=== PATIENT | female | born 1945 | race Caucasian/White ===

== ENCOUNTER 2017-07-25 20:29 | Emergency (ER) | payer OTHER ==
[~2017-07-25] VITALS: Ht 157.5 cm; Wt 98.7 kg
[2017-07-25 20:35] VITALS: BP 133/77; PULSE 95; RESP 20; TEMP 98.1; O2SAT 93
--- NOTE | 2017-07-25 21:08 | PD ---
HPI Chief Complaint: Skin Problem Time Seen by Provider: 20:47 Travel History International Travel<30 days: No Contact w/Intl Traveler<30days: No Traveled to known affect area: No History of Present Illness HPI The patient is a 71-year-old female that states that since her discharge from [facility] in [facility] for congestive heart failure she has had a papular, squamous, erythematous skin rash on her right hand, both feet and left thigh. It is both pruritic and painful. Sometimes it "pops open" and drains fluid. She states she has been particularly short of breath for the last 3 days. She has never had a similar rash before. She does have multiple allergies. She denies any fever. PFSH Past Medical History Hx Anticoagulant Therapy: Yes Cardiovascular Problems: Yes ([place]) Cerebrovascular Accident: Yes ?: Not Social History Tobacco Use: Yes Allergies-Medications (Allergen,Severity, Reaction): Coded Allergies: acetaminophen (Verified Allergy, Severe, Itching, 07/25/17) iodine (Verified Allergy, Severe, Hives, 07/25/17) oxycodone (Verified Allergy, Severe, Itching, 07/25/17) tramadol (Verified Allergy, Severe, Seizures, 07/25/17) Reported Meds & Prescriptions Reported Meds & Active Scripts Active Bactrim DS (Sulfamethoxazole-Trimethoprim) 800-160 Mg Tab 1 Tab PO BID Prednisone 20 Mg Tab 20 Mg PO BID Review of Systems Except as stated in HPI: all other systems reviewed are Neg Physical Exam Narrative GENERAL: The patient is alert, oriented 3 in slight respiratory distress. Her vital signs show pulse rate of 95 and oximetry 93% but are otherwise normal. SKIN: Focused skin assessment warm/dry. There is a papular, erythematous, squamous rash on the hand and right foot and left foot. There are areas where the patient is obviously been scratching this rash. This area is particularly prominent on the left thigh. The most prominent rashes on the right foot and this appears to be well demarcated. HEAD: Atraumatic. Normocephalic. EYES: Pupils equal and round. No scleral icterus. No injection or drainage. ENT: No nasal bleeding or discharge. Mucous membranes pink and moist. NECK: Trachea midline. No JVD. CARDIOVASCULAR: Regular rate and rhythm. No murmur appreciated. RESPIRATORY: No accessory muscle use. There are scattered rails on the bases bilaterally. Breath sounds equal bilaterally. GASTROINTESTINAL: Abdomen soft, non-tender, nondistended. Hepatic and splenic margins not palpable. MUSCULOSKELETAL: No obvious deformities. No clubbing. No cyanosis. There is 1 + bilateral edema of the lower legs. NEUROLOGICAL: Awake and alert. No obvious cranial nerve deficits. Motor grossly within normal limits. Normal speech. PSYCHIATRIC: Appropriate mood and affect; insight and judgment normal. Data Data Last Documented VS Vital Signs Date Time Temp Pulse Resp B/P (MAP) Pulse Ox O2 Delivery O2 Flow Rate FiO2 07/25/17 22:46 91 18 125/64 (84) 93 Nasal Cannula 2.00 07/25/17 20:35 98.1 Orders Orders Electrocardiogram (07/25/17 21:09) Complete Blood Count With Diff (07/25/17 21:09) Comprehensive Metabolic Panel (07/25/17 21:09) Troponin I (07/25/17 21:09) B-Type Natriuretic Peptide (07/25/17 21:09) Magnesium (Mg) (07/25/17 21:09) Chest, Pa & Lat (07/25/17 21:09) Methylprednisolone So Succ Inj (Solumedr (07/25/17 21:45) Albuterol-Ipratropium Neb (Duoneb Neb) (07/25/17 21:45) Sulfamet-Trimeth Ds 800-160 Mg (Bactrim (07/25/17 23:30) Labs Laboratory Tests Test 07/25/17 22:06 White Blood Count 7.8 TH/MM3 Red Blood Count 4.50 MIL/MM3 Hemoglobin 12.5 GM/DL Hematocrit 38.1 % Mean Corpuscular Volume 84.6 FL Mean Corpuscular Hemoglobin 27.7 PG Mean Corpuscular Hemoglobin Concent 32.8 % Red Cell Distribution Width 13.9 % Platelet Count 273 TH/MM3 Mean Platelet Volume 8.4 FL Neutrophils (%) (Auto) 78.5 % Lymphocytes (%) (Auto) 7.8 % Monocytes (%) (Auto) 5.7 % Eosinophils (%) (Auto) 7.5 % Basophils (%) (Auto) 0.5 % Neutrophils # (Auto) 6.2 TH/MM3 Lymphocytes # (Auto) 0.6 TH/MM3 Monocytes # (Auto) 0.4 TH/MM3 Eosinophils # (Auto) 0.6 TH/MM3 Basophils # (Auto) 0.0 TH/MM3 CBC Comment DIFF FINAL Differential Comment Blood Urea Nitrogen 32 MG/DL Creatinine 1.20 MG/DL Random Glucose 112 MG/DL Total Protein 6.7 GM/DL Albumin 3.3 GM/DL Calcium Level 8.6 MG/DL Magnesium Level 1.8 MG/DL Alkaline Phosphatase 63 U/L Aspartate Amino Transf (AST/SGOT) 23 U/L Alanine Aminotransferase (ALT/SGPT) 31 U/L Total Bilirubin 0.2 MG/DL Sodium Level 140 MEQ/L Potassium Level 3.9 MEQ/L Chloride Level 104 MEQ/L Carbon Dioxide Level 30.0 MEQ/L Anion Gap 6 MEQ/L Estimat Glomerular Filtration Rate 44 ML/MIN Troponin I LESS THAN 0.02 NG/ML B-Type Natriuretic Peptide 47 PG/ML MDM Medical Decision Making Medical Screen Exam Complete: Yes Emergency Medical Condition: Yes Medical Record Reviewed: Yes Interpretation(s) The CBC is normal. The complete metabolic profile shows a BUN of 32, Differential Diagnosis Psoriasis, allergic reaction, congestive heart failure, COPD Narrative Course The patient may have a allergic reaction. Where she has scratched these lesions there is probably MRSA. She will need to follow-up with a pantographer on these lesions. They do have a vague similarity to psoriasis with the scaling. Diagnosis Primary Impression: Rash due to allergy Additional Impression: MRSA infection Additional Instructions: The antibiotic is 1 tablet twice daily for 10 days. The prednisone is for the itching and the rash and it is 1 tablet twice daily for 5 days followed by 1 tablet once daily for 5 days. Follow-up with a pantographer. Med/Other Pt SpecificInfo: Prescription(s) given Scripts Sulfamethoxazole-Trimethoprim (Bactrim DS) 800-160 Mg Tab 1 TAB PO BID for Infection, #20 TAB 0 Refills Prov: Cirilo White MD 07/25/17 Prednisone (Prednisone) 20 Mg Tab 20 MG PO BID for X 5 days than daily X 5 days, #15 TAB 0 Refills Prov: Cirilo White MD 07/25/17 Disposition: 01 DISCHARGE HOME Condition: Stable Cirilo White MD July 25, 2017 21:08
--- NOTE | 2017-07-25 21:42 | RADRPT ---
EXAM DATE/TIME: 07/25/2017 21:15 [facility] COMPARISON: No previous studies available for comparison. INDICATIONS : Short of breath. MEDICAL HISTORY : Myocardial infarction. Stroke. Chronic obstructive pulmonary disease. Hiatal hernia. SURGICAL HISTORY : Coronary artery stent. Appendectomy. Hysterectomy. Breast reduction. Loop recorder. ENCOUNTER: Initial ACUITY: 2 days PAIN SCORE: 0/10 LOCATION: Bilateral chest FINDINGS: Cardiomegaly is noted. The lungs are clear. A loop recorder is noted within the left chest wall. CONCLUSION: Cardiomegaly. No focal infiltrate. Daniele Herrera MD on July 25, 2017 at 21:39 Board Certified Radiologist. This report was verified electronically.
[2017-07-25] MEDS ORDERED: methylPREDNISolone SOD SUCC 125 MG/2 ML VIAL IV PUSH ONE (21:45)
[2017-07-25] MEDS: RESP: ALBUTEROL 2.5 MG/IPRATROPIUM 0.5 MG NEB (SCH) INH ×3 (21:52→22:15)
[2017-07-25 22:19] VITALS: BP 107/66; PULSE 85; RESP 18; O2SAT 93
[2017-07-25 22:25] LABS: AUTOMATED NEUTROPHIL # 6.2 TH/MM3 (1.8-7.7); BASOPHIL % 0.5 % (0.0-2.0); EOSINOPHIL # 0.6 TH/MM3 (0-0.4); EOSINOPHIL % 7.5 % (0.0-4.0); HEMATOCRIT 38.1 % (35.0-46.0); HEMOGLOBIN 12.5 GM/DL (11.6-15.3); LYMPH % 7.8 % (9.0-44.0); LYMPHOCYTE # 0.6 TH/MM3 (1.0-4.8); MEAN CELL VOLUME 84.6 FL (80.0-100.0); MEAN CORPUSCULAR HEMOGLOBIN 27.7 PG (27.0-34.0); MEAN CORPUSCULAR HGB CONC 32.8 % (32.0-36.0); MEAN PLATELET VOLUME 8.4 FL (7.0-11.0); MONO % 5.7 % (0.0-8.0); MONOCYTE # 0.4 TH/MM3 (0-0.9); NEUT % 78.5 % (16.0-70.0); PLATELET COUNT 273 TH/MM3 (150-450); RED CELL DISTRIBUTION WIDTH 13.9 % (11.6-17.2); WHITE BLOOD COUNT 7.8 TH/MM3 (4.0-11.0)
[2017-07-25 22:37] LABS: CHLORIDE 104 MEQ/L (98-107); SODIUM (NA) 140 MEQ/L (136-145)
[2017-07-25 22:40] LABS: ALBUMIN 3.3 GM/DL (3.4-5.0); CALCIUM 8.6 MG/DL (8.5-10.1)
[2017-07-25 22:41] LABS: BLOOD UREA NITROGEN 32 MG/DL (7-18); GLUCOSE,RANDOM 112 MG/DL (74-106); MAGNESIUM 1.8 MG/DL (1.5-2.5)
[2017-07-25 22:43] LABS: ALT (GPT) 31 U/L (10-53)
[2017-07-25 22:44] LABS: AST (GOT) 23 U/L (15-37); GLOMERULAR FILTRATION RATE 44 ML/MIN (>89)
[2017-07-25 22:45] LABS: TOTAL BILIRUBIN ADULT 0.2 MG/DL (0.2-1.0); TOTAL PROTEIN 6.7 GM/DL (6.4-8.2)
[2017-07-25 22:46] VITALS: BP 125/64; PULSE 91; RESP 18; O2SAT 93
[2017-07-25 22:46] LABS: ALKALINE PHOSPHATASE 63 U/L (45-117)
[2017-07-25 22:49] LABS: TROPONIN I LESS THAN 0.02 NG/ML (0.02-0.05)
[2017-07-25] MEDS ORDERED: PRED20 PO (23:17)
[2017-07-25] MEDS ORDERED: BACT800T5 PO (23:19)
[2017-07-25] MEDS ORDERED: SULFAMETHOXAZOLE-TRIMETHOPRIM DS 800-160 MG TAB PO ONE (23:30)
[2017-07-25 23:37] VITALS: BP 122/74
--- NOTE | 2017-07-26 14:12 | EKG ---
Date Performed: 07/25/2017 Time Performed: 21:46:10 PTAGE: 71 years EKG: SINUS BRADYCARDIA WITH FREQUENT SUPRAVENTRICULAR PREMATURE COMPLEXES LOW QRS VOLTAGE IN PRE CORDIAL LEADS ABNORMAL RHYTHM ECG NO PREVIOUS TRACING Possible inferior infarct - age indeterminate DOCTOR: Levy Chery Interpretating Date/Time 07/26/2017 14:10:58
== END 2017-07-25 23:53 | disposition home or self-care (01) ==
LOC: PHED 20:29
DX: T78.40XA Allergy, unspecified, initial encounter (principal); R21 Rash and other nonspecific skin eruption; X58.XXXA Exposure to other specified factors, initial encounter; B95.62 Methicillin resistant Staphylococcus aureus infection as the cause of diseases classified elsewhere; R06.02 Shortness of breath; R94.31 Abnormal electrocardiogram [ECG] [EKG]; I50.9 Heart failure, unspecified; Z86.73 Personal history of transient ischemic attack (TIA), and cerebral infarction without residual deficits; Z72.0 Tobacco use
CPT/HCPCS: 71046; 80053; 83735; 83880; 84484; 85025; 93005; 94640; 94664; 96374; 99285; J2930

== ENCOUNTER 2017-11-01 05:51 | Inpatient (IN) ==
--- NOTE | 2017-11-01 06:28 | ED ---
HPI General Chief complaint: Respiratory Symptoms Stated complaint: EVAC/Breathing difficulties Time Seen by Provider: 11/01/17 06:26 Source: patient and EMS Mode of arrival: EMS Limitations: no limitations Related Data Home Medications Medication Instructions Recorded Confirmed alprazolam 0.5 mg PO BID PRN 11/01/17 11/01/17 amlodipine 10 mg PO DAILY 11/01/17 11/01/17 aspirin 325 mg PO DAILY 11/01/17 11/01/17 clopidogrel [Plavix] 75 mg PO DAILY 11/01/17 11/01/17 fenofibrate 160 mg PO DAILY 11/01/17 11/01/17 gabapentin 600 mg PO TID 11/01/17 11/01/17 hydrochlorothiazide 25 mg PO DAILY 11/01/17 11/01/17 ibuprofen [Motrin IB] 800 mg PO TID 11/01/17 11/01/17 levetiracetam 500 mg PO Q12H 11/01/17 11/01/17 lisinopril 20 mg PO DAILY 11/01/17 11/01/17 ropinirole 5 mg PO DAILY 11/01/17 11/01/17 Allergies Allergy/AdvReac Type Severity Reaction Status Date / Time iodine Allergy Severe Hives Verified 11/01/17 05:58 tramadol Allergy Severe Seizures Verified 11/01/17 05:58 Review of Systems ROS: all other systems reviewed are negative (Patient presents with history of chronic respiratory distress with COPD. Patient uses oxygen normally at home. Patient has a history of CVA with left-sided weakness and also cardiac disease. For the last 3 days patient has had malaise and general weakness is fallen several times. With those falls she did not have injury to her head or neck or back but she had a injury to her left forearm and also her knees. With the feeling of malaise patient also had generalized weakness where she had trouble ambulating and that caused her to fall. This precipitated her call to EMS brought her here morning. Patient was treated for a pneumonia 3 weeks ago while in rehab 2 weeks later she had a relapse of the) [facility] Social History Social History Substance History: No History of Abuse Second Hand Smoke Exposure: Yes Smoking Status: Current every day smoker Tobacco Type: Cigarettes How Often Do You Have a Drink Containing Alcohol: Never Recent Travel in [facility] within the Last 8 Weeks: No Recent Out of Country Travel within the Last 8 Weeks: No Exam Narrative Exam Narrative: GENERAL: Alert and oriented. In no acute distress SKIN: Focused skin assessment warm/dry. Ecchymosis to left forearm HEAD: Atraumatic. Normocephalic. EYES: Pupils equal and round. No scleral icterus. No injection or drainage. ENT: No nasal bleeding or discharge. Mucous membranes pink and moist. NECK: Trachea midline. No JVD. CARDIOVASCULAR: Regular rate and rhythm. No murmur appreciated. RESPIRATORY: No accessory muscle use. Clear to auscultation. Breath sounds equal bilaterally. Rales to both lung bases. Patient also has tussive rhonchi bilaterally GASTROINTESTINAL: Abdomen soft, non-tender, nondistended. Hepatic and splenic margins not palpable. MUSCULOSKELETAL: No obvious deformities. No clubbing. No cyanosis. No edema. Significant pain with range of motion of her knees. With localization to the patellar region bilaterally. Normal range of motion of left lower extremity with no evidence of fracture or significant injury. Patient has ecchymosis in the forearm NEUROLOGICAL: Awake and alert. No obvious cranial nerve deficits. Motor grossly within normal limits; with marginal weakness on the left side. Normal speech. PSYCHIATRIC: Appropriate mood and affect; insight and judgment normal. Course Initial Documented Vital Signs Pulse Rate 103 H 11/01/17 05:58 Respiratory Rate 22 11/01/17 05:58 Blood Pressure 132/74 11/01/17 05:58 Pulse Oximetry 89 L 11/01/17 05:58 Last Documented Vital Signs Temperature 97.8 F 11/04/17 12:00 Pulse Rate 79 11/04/17 15:35 Respiratory Rate 17 11/04/17 15:35 Blood Pressure 151/79 H 11/04/17 12:00 Pulse Oximetry 91 L 11/04/17 12:00 Medical Decision Making MDM Narrative Medical decision making narrative: Patient was seen by ED physician and signed out to me. Patient complained of shortness of breath for the past week. Patient being treated for pneumonia. EMS was called. Patient was given DuoNeb 1 and so Medrol [address] to ED. Patient on home O2 at home at night. O2 saturation in the low 90s on 3 L nasal cannula. Examination today with mild expiratory wheezes and rhonchi at the bases. Cefepime 1 g IV. Zithromax 5 mg IV. Patient will be admitted to medical service. Awaiting VQ scan. Lab Data Result diagrams: 11/02/17 04:50 11/04/17 03:53 Lab Results 11/01/17 11/01/17 11/01/17 Range/Units 06:00 06:00 06:00 CBC w Diff Auto diff final WBC 7.9 (4.0-11.0) th/mm3 RBC 4.36 (4.00-5.30) mil/mm3 Hgb 12.7 (11.6-15.3) gm/dL Hct 37.7 (35.0-46.0) % MCV 86.5 (80.0-100.0) fL MCH 29.0 (27.0-34.0) pg MCHC 33.6 (32.0-36.0) % RDW 14.1 (11.6-17.2) % Plt Count 299 (150-450) th/mm3 MPV 8.9 (7.0-11.0) fL Neut % (Auto) 63.4 (16.0-70.0) % Lymph % (Auto) 18.0 (9.0-44.0) % [place] % (Auto) 5.5 (0.0-8.0) % Eos % (Auto) 12.8 H (0.0-4.0) % Baso % (Auto) 0.3 (0.0-2.0) % Neut # (Auto) 5.1 (1.8-7.7) th/mm3 Lymph # (Auto) 1.4 (1.0-4.8) th/mm3 [place] # (Auto) 0.4 (0.0-0.9) th/mm3 Eos # (Auto) 1.0 H (0.0-0.4) th/mm3 Baso # (Auto) 0.0 (0.0-0.2) th/mm3 WBC Differential . Differential Comment . PT (9.8-11.6) sec INR Ratio APTT (24.3-30.1) sec D-Dimer Quant (PE/DVT) 2.02 H (0.00-0.50) mg/L FEU Puncture Site Patient Temperature O2 Saturation (90-100) % ABG pH (7.380-7.420) ABG pCO2 (38-42) mmHg ABG pO2 (61-120) mmHg ABG HCO3 (22-26) mmol/L ABG O2 Content (12.0-20.0) Vol % ABG Base Excess (-2-2) mmol/L ABG Methemoglobin (0-2) % Hemoglobin (12.0-16.0) G/DL Carboxyhemoglobin (0-4) % O2 Delivery Device Liter Flow L/M Inspired O2 % Critical Value Sodium 140 (136-145) meq/L Potassium 3.5 (3.5-5.1) meq/L Chloride 105 (98-107) meq/L Carbon Dioxide 27.5 (21.0-32.0) meq/L Anion Gap 8 (5-15) meq/L BUN 26 H (7-18) mg/dL Creatinine 0.90 (0.50-1.00) mg/dL Estimated GFR 62 L (>89) mL/min Random Glucose 109 H (74-106) mg/dL Calcium 9.0 (8.5-10.1) mg/dL Magnesium (1.5-2.5) mg/dL Total Bilirubin 0.3 (0.2-1.0) mg/dL AST 20 (15-37) U/L ALT 22 (10-53) U/L Alkaline Phosphatase 56 (45-117) U/L Troponin I Less than 0.02 L (0.02-0.05) ng/mL B-Natriuretic Peptide (0-100) pg/mL Total Protein 6.4 (6.4-8.2) g/dL Albumin 3.3 L (3.4-5.0) g/dL Ur Collection Type Urine Color (Yellw/Straw) Urine Clarity (Clear) Urine pH (5.0-8.5) Ur Specific [place] (1.002-1.035) Urine Protein (Neg-Trace) mg/dL Urine Glucose (UA) (Negative) mg/dL Urine Ketones (Negative) mg/dL Urine Occult Blood (Negative) Urine Nitrate (Negative) Urine Bilirubin (Negative) Urine Urobilinogen (Less than 2) mg/dL Ur Leukocyte Esterase (Negative) Urine RBC (0-3) /hpf Micro UA Comment Urine Culture Comments Vancomycin Trough (5.0-10.0) mcg/mL 11/01/17 11/01/17 11/01/17 Range/Units 06:00 06:00 06:51 CBC w Diff WBC (4.0-11.0) th/mm3 RBC (4.00-5.30) mil/mm3 Hgb (11.6-15.3) gm/dL Hct (35.0-46.0) % MCV (80.0-100.0) fL MCH (27.0-34.0) pg MCHC (32.0-36.0) % RDW (11.6-17.2) % Plt Count (150-450) th/mm3 MPV (7.0-11.0) fL Neut % (Auto) (16.0-70.0) % Lymph % (Auto) (9.0-44.0) % [place] % (Auto) (0.0-8.0) % Eos % (Auto) (0.0-4.0) % Baso % (Auto) (0.0-2.0) % Neut # (Auto) (1.8-7.7) th/mm3 Lymph # (Auto) (1.0-4.8) th/mm3 [place] # (Auto) (0.0-0.9) th/mm3 Eos # (Auto) (0.0-0.4) th/mm3 Baso # (Auto) (0.0-0.2) th/mm3 WBC Differential Differential Comment PT (9.8-11.6) sec INR Ratio APTT (24.3-30.1) sec D-Dimer Quant (PE/DVT) (0.00-0.50) mg/L FEU Puncture Site Patient Temperature O2 Saturation (90-100) % ABG pH (7.380-7.420) ABG pCO2 (38-42) mmHg ABG pO2 (61-120) mmHg ABG HCO3 (22-26) mmol/L ABG O2 Content (12.0-20.0) Vol % ABG Base Excess (-2-2) mmol/L ABG Methemoglobin (0-2) % Hemoglobin (12.0-16.0) G/DL Carboxyhemoglobin (0-4) % O2 Delivery Device Liter Flow L/M Inspired O2 % Critical Value Sodium (136-145) meq/L Potassium (3.5-5.1) meq/L Chloride (98-107) meq/L Carbon Dioxide (21.0-32.0) meq/L Anion Gap (5-15) meq/L BUN (7-18) mg/dL Creatinine (0.50-1.00) mg/dL Estimated GFR (>89) mL/min Random Glucose (74-106) mg/dL Calcium (8.5-10.1) mg/dL Magnesium 1.5 (1.5-2.5) mg/dL Total Bilirubin (0.2-1.0) mg/dL AST (15-37) U/L ALT (10-53) U/L Alkaline Phosphatase (45-117) U/L Troponin I (0.02-0.05) ng/mL B-Natriuretic Peptide 44 (0-100) pg/mL Total Protein (6.4-8.2) g/dL Albumin (3.4-5.0) g/dL Ur Collection Type Cath Urine Color Yellow (Yellw/Straw) Urine Clarity Clear (Clear) Urine pH 5.5 (5.0-8.5) Ur Specific [place] 1.020 (1.002-1.035) Urine Protein Negative (Neg-Trace) mg/dL Urine Glucose (UA) Negative (Negative) mg/dL Urine Ketones Negative (Negative) mg/dL Urine Occult Blood Negative (Negative) Urine Nitrate Negative (Negative) Urine Bilirubin Negative (Negative) Urine Urobilinogen 0.2 (Less than 2) mg/dL Ur Leukocyte Esterase Negative (Negative) Urine RBC 0-3 (0-3) /hpf Micro UA Comment Cath-culture not ind Urine Culture Comments Cath-cult not ind Vancomycin Trough (5.0-10.0) mcg/mL 11/01/17 11/01/17 11/01/17 Range/Units 11:58 12:27 15:33 CBC w Diff Auto diff final WBC 6.0 (4.0-11.0) th/mm3 RBC 4.45 (4.00-5.30) mil/mm3 Hgb 12.6 (11.6-15.3) gm/dL Hct 39.1 (35.0-46.0) % MCV 87.8 (80.0-100.0) fL MCH 28.3 (27.0-34.0) pg MCHC 32.2 (32.0-36.0) % RDW 13.4 (11.6-17.2) % Plt Count 276 (150-450) th/mm3 MPV 8.3 (7.0-11.0) fL Neut % (Auto) 92.7 H (16.0-70.0) % Lymph % (Auto) 6.2 L (9.0-44.0) % [place] % (Auto) 0.5 (0.0-8.0) % Eos % (Auto) 0.4 (0.0-4.0) % Baso % (Auto) 0.2 (0.0-2.0) % Neut # (Auto) 5.6 (1.8-7.7) th/mm3 Lymph # (Auto) 0.4 L (1.0-4.8) th/mm3 [place] # (Auto) 0.0 (0.0-0.9) th/mm3 Eos # (Auto) 0.0 (0.0-0.4) th/mm3 Baso # (Auto) 0.0 (0.0-0.2) th/mm3 WBC Differential . Differential Comment . PT 10.7 (9.8-11.6) sec INR 1.1 Ratio APTT 22.9 L (24.3-30.1) sec D-Dimer Quant (PE/DVT) (0.00-0.50) mg/L FEU Puncture Site Right brachial Patient Temperature 98.6 O2 Saturation 92 (90-100) % ABG pH 7.40 (7.380-7.420) ABG pCO2 48 H (38-42) mmHg ABG pO2 69 (61-120) mmHg ABG HCO3 29 H (22-26) mmol/L ABG O2 Content 15.9 (12.0-20.0) Vol % ABG Base Excess 4.3 H (-2-2) mmol/L ABG Methemoglobin 0.4 (0-2) % Hemoglobin 12.3 (12.0-16.0) G/DL Carboxyhemoglobin 2.0 (0-4) % O2 Delivery Device Nasal cannula Liter Flow 4.00 L/M Inspired O2 21 % Critical Value No Sodium (136-145) meq/L Potassium (3.5-5.1) meq/L Chloride (98-107) meq/L Carbon Dioxide (21.0-32.0) meq/L Anion Gap (5-15) meq/L BUN (7-18) mg/dL Creatinine (0.50-1.00) mg/dL Estimated GFR (>89) mL/min Random Glucose (74-106) mg/dL Calcium (8.5-10.1) mg/dL Magnesium (1.5-2.5) mg/dL Total Bilirubin (0.2-1.0) mg/dL AST (15-37) U/L ALT (10-53) U/L Alkaline Phosphatase (45-117) U/L Troponin I (0.02-0.05) ng/mL B-Natriuretic Peptide (0-100) pg/mL Total Protein (6.4-8.2) g/dL Albumin (3.4-5.0) g/dL Ur Collection Type Urine Color (Yellw/Straw) Urine Clarity (Clear) Urine pH (5.0-8.5) Ur Specific [place] (1.002-1.035) Urine Protein (Neg-Trace) mg/dL Urine Glucose (UA) (Negative) mg/dL Urine Ketones (Negative) mg/dL Urine Occult Blood (Negative) Urine Nitrate (Negative) Urine Bilirubin (Negative) Urine Urobilinogen (Less than 2) mg/dL Ur Leukocyte Esterase (Negative) Urine RBC (0-3) /hpf Micro UA Comment Urine Culture Comments Vancomycin Trough (5.0-10.0) mcg/mL 11/02/17 11/02/17 11/03/17 Range/Units 04:50 04:50 12:52 CBC w Diff WBC 8.2 (4.0-11.0) th/mm3 RBC 4.35 (4.00-5.30) mil/mm3 Hgb 12.5 (11.6-15.3) gm/dL Hct 37.6 (35.0-46.0) % MCV 86.3 (80.0-100.0) fL MCH 28.7 (27.0-34.0) pg MCHC 33.3 (32.0-36.0) % RDW 14.3 (11.6-17.2) % Plt Count 261 (150-450) th/mm3 MPV 8.6 (7.0-11.0) fL Neut % (Auto) 92.4 H (16.0-70.0) % Lymph % (Auto) 5.6 L (9.0-44.0) % [place] % (Auto) 1.9 (0.0-8.0) % Eos % (Auto) 0.0 (0.0-4.0) % Baso % (Auto) 0.1 (0.0-2.0) % Neut # (Auto) 7.6 (1.8-7.7) th/mm3 Lymph # (Auto) 0.5 L (1.0-4.8) th/mm3 [place] # (Auto) 0.2 (0.0-0.9) th/mm3 Eos # (Auto) 0.0 (0.0-0.4) th/mm3 Baso # (Auto) 0.0 (0.0-0.2) th/mm3 WBC Differential . Differential Comment Auto diff final PT (9.8-11.6) sec INR Ratio APTT (24.3-30.1) sec D-Dimer Quant (PE/DVT) (0.00-0.50) mg/L FEU Puncture Site Patient Temperature O2 Saturation (90-100) % ABG pH (7.380-7.420) ABG pCO2 (38-42) mmHg ABG pO2 (61-120) mmHg ABG HCO3 (22-26) mmol/L ABG O2 Content (12.0-20.0) Vol % ABG Base Excess (-2-2) mmol/L ABG Methemoglobin (0-2) % Hemoglobin (12.0-16.0) G/DL Carboxyhemoglobin (0-4) % O2 Delivery Device Liter Flow L/M Inspired O2 % Critical Value Sodium 142 (136-145) meq/L Potassium 3.8 (3.5-5.1) meq/L Chloride 104 (98-107) meq/L Carbon Dioxide 29.7 (21.0-32.0) meq/L Anion Gap 8 (5-15) meq/L BUN 27 H (7-18) mg/dL Creatinine 1.01 H (0.50-1.00) mg/dL Estimated GFR 54 L (>89) mL/min Random Glucose 235 H D (74-106) mg/dL Calcium 8.9 (8.5-10.1) mg/dL Magnesium (1.5-2.5) mg/dL Total Bilirubin (0.2-1.0) mg/dL AST (15-37) U/L ALT (10-53) U/L Alkaline Phosphatase (45-117) U/L Troponin I Less than 0.02 L (0.02-0.05) ng/mL B-Natriuretic Peptide (0-100) pg/mL Total Protein (6.4-8.2) g/dL Albumin (3.4-5.0) g/dL Ur Collection Type Urine Color (Yellw/Straw) Urine Clarity (Clear) Urine pH (5.0-8.5) Ur Specific [place] (1.002-1.035) Urine Protein (Neg-Trace) mg/dL Urine Glucose (UA) (Negative) mg/dL Urine Ketones (Negative) mg/dL Urine Occult Blood (Negative) Urine Nitrate (Negative) Urine Bilirubin (Negative) Urine Urobilinogen (Less than 2) mg/dL Ur Leukocyte Esterase (Negative) Urine RBC (0-3) /hpf Micro UA Comment Urine Culture Comments Vancomycin Trough (5.0-10.0) mcg/mL 11/04/17 11/04/17 Range/Units 03:53 11:55 CBC w Diff WBC (4.0-11.0) th/mm3 RBC (4.00-5.30) mil/mm3 Hgb (11.6-15.3) gm/dL Hct (35.0-46.0) % MCV (80.0-100.0) fL MCH (27.0-34.0) pg MCHC (32.0-36.0) % RDW (11.6-17.2) % Plt Count (150-450) th/mm3 MPV (7.0-11.0) fL Neut % (Auto) (16.0-70.0) % Lymph % (Auto) (9.0-44.0) % [place] % (Auto) (0.0-8.0) % Eos % (Auto) (0.0-4.0) % Baso % (Auto) (0.0-2.0) % Neut # (Auto) (1.8-7.7) th/mm3 Lymph # (Auto) (1.0-4.8) th/mm3 [place] # (Auto) (0.0-0.9) th/mm3 Eos # (Auto) (0.0-0.4) th/mm3 Baso # (Auto) (0.0-0.2) th/mm3 WBC Differential Differential Comment PT (9.8-11.6) sec INR Ratio APTT (24.3-30.1) sec D-Dimer Quant (PE/DVT) (0.00-0.50) mg/L FEU Puncture Site Patient Temperature O2 Saturation (90-100) % ABG pH (7.380-7.420) ABG pCO2 (38-42) mmHg ABG pO2 (61-120) mmHg ABG HCO3 (22-26) mmol/L ABG O2 Content (12.0-20.0) Vol % ABG Base Excess (-2-2) mmol/L ABG Methemoglobin (0-2) % Hemoglobin (12.0-16.0) G/DL Carboxyhemoglobin (0-4) % O2 Delivery Device Liter Flow L/M Inspired O2 % Critical Value Sodium (136-145) meq/L Potassium (3.5-5.1) meq/L Chloride (98-107) meq/L Carbon Dioxide (21.0-32.0) meq/L Anion Gap (5-15) meq/L BUN (7-18) mg/dL Creatinine 1.16 H (0.50-1.00) mg/dL Estimated GFR 46 L (>89) mL/min Random Glucose (74-106) mg/dL Calcium (8.5-10.1) mg/dL Magnesium (1.5-2.5) mg/dL Total Bilirubin (0.2-1.0) mg/dL AST (15-37) U/L ALT (10-53) U/L Alkaline Phosphatase (45-117) U/L Troponin I (0.02-0.05) ng/mL B-Natriuretic Peptide (0-100) pg/mL Total Protein (6.4-8.2) g/dL Albumin (3.4-5.0) g/dL Ur Collection Type Urine Color (Yellw/Straw) Urine Clarity (Clear) Urine pH (5.0-8.5) Ur Specific [place] (1.002-1.035) Urine Protein (Neg-Trace) mg/dL Urine Glucose (UA) (Negative) mg/dL Urine Ketones (Negative) mg/dL Urine Occult Blood (Negative) Urine Nitrate (Negative) Urine Bilirubin (Negative) Urine Urobilinogen (Less than 2) mg/dL Ur Leukocyte Esterase (Negative) Urine RBC (0-3) /hpf Micro UA Comment Urine Culture Comments Vancomycin Trough 11.1 H (5.0-10.0) mcg/mL Imaging Data Radiologist's impression: Chest X-Ray 11/01/17 07:32 CONCLUSION: Cardiomegaly with increase in pulmonary vascularity. Left basilar density. Humerus X-Ray 11/01/17 07:35 CONCLUSION: No acute fracture Knee X-Ray 11/01/17 07:35 CONCLUSION: Osteoarthritis without fracture Pulmonary Perfusion Imaging 11/01/17 08:51 CONCLUSION: 1. Low probability for pulmonary embolism. Chest X-Ray 11/03/17 00:00 CONCLUSION: Cardiomegaly with increase in pulmonary vascularity and left basilar density Discharge Plan Discharge Disposition Patient Disposition: 30 Still Patient Discharge Details Diagnosis: COPD with acute exacerbation, Pneumonia Physicians Team ED Provider: Amauri Reed Primary Care Provider: Isela Escobar Attending Provider: Mono Gutierrez Other Providers: Levy Chery ; [employer] ; [facility] ; James Bautista V ; [facility] ; [facility] Status ED Status: Left Department Discharge Information Discharge Date/Time: 11/01/17 10:15
[2017-11-01 06:59] LABS: Bilirubin,Urine Negative (Negative); Clarity,Urine Clear (Clear); Color,Urine Yellow (Yellw/Straw); Glucose,Urine (UA) Negative (Negative); Leukocyte Esterase,Urine Negative (Negative); Nitrite,Urine Negative (Negative); PH,Urine 5.5 (5.0-8.5); Urobilinogen,Urine 0.2 mg/dL (Less than 2)
[2017-11-01 07:02] LABS: Baso % (Auto) 0.3 % (0.0-2.0); Eos % (Auto) 12.8 % (0.0-4.0); Hematocrit 37.7 % (35.0-46.0); Hemoglobin 12.7 gm/dL (11.6-15.3); Lymph # (Auto) 1.4 th/mm3 (1.0-4.8); Mean Corpuscular HGB Conc 33.6 % (32.0-36.0); Mean Corpuscular Volume 86.5 fL (80.0-100.0); Mean Platelet Volume 8.9 fL (7.0-11.0); Mono # (Auto) 0.4 th/mm3 (0.0-0.9); Mono % (Auto) 5.5 % (0.0-8.0); Neut # (Auto) 5.1 th/mm3 (1.8-7.7); Neut % (Auto) 63.4 % (16.0-70.0); Platelet Count 299 th/mm3 (150-450); Red Blood Count 4.36 mil/mm3 (4.00-5.30); Red Cell Distribution Width 14.1 % (11.6-17.2); White Blood Count 7.9 th/mm3 (4.0-11.0)
[2017-11-01 07:10] LABS: Chloride 105 meq/L (98-107); Potassium 3.5 meq/L (3.5-5.1); Sodium 140 meq/L (136-145)
[2017-11-01 07:13] LABS: Albumin 3.3 g/dL (3.4-5.0); Anion Gap 8 meq/L (5-15); Carbon Dioxide 27.5 meq/L (21.0-32.0); Glucose,Random 109 mg/dL (74-106)
[2017-11-01 07:13] LABS: RBC,Urine 0-3 /hpf (0-3)
[2017-11-01 07:14] LABS: Blood Urea Nitrogen 26 mg/dL (7-18)
[2017-11-01 07:16] LABS: Alanine Aminotransferase 22 U/L (10-53)
[2017-11-01 07:17] LABS: Aspartate Aminotransferase 20 U/L (15-37); Glomerular Filtration Rate 62 mL/min (>89)
[2017-11-01 07:18] LABS: Total Protein 6.4 g/dL (6.4-8.2)
[2017-11-01 07:19] LABS: Alkaline Phosphatase 56 U/L (45-117)
--- NOTE | 2017-11-01 08:17 | XR ---
EXAM DATE: 11/01/2017 8:07 AM EDT AGE/SEX: 72 years / Female INDICATIONS: Multiple falls CLINICAL DATA: This is the patient's initial encounter. Patient reports that signs and symptoms have been present for 1 day and indicates a pain score of Nonresponsive. MEDICAL/SURGICAL HISTORY: Chronic obstructive pulmonary disease. Non-responsive. COMPARISON: No prior exams available for comparison. FINDINGS: Views of left knee demonstrates mild to moderate tricompartmental osteoarthritis. No fracture or effu miguelangel. Vascular calcifications. Osseous density is normal. Soft tissues are unremarkable. No radiop aque foreign bodies seen. CONCLUSION: Osteoarthritis without fracture Electronically signed by: Sea Loaiza MD 11/01/2017 8:16 AM EDT
--- NOTE | 2017-11-01 08:17 | XR ---
EXAM DATE: 11/01/2017 8:02 AM EDT AGE/SEX: 72 years / Female INDICATIONS: Short of breath, weak, multiple falls CLINICAL DATA: This is the patient's initial encounter. Patient reports that signs and symptoms have been present for 1 day and indicates a pain score of Nonresponsive. MEDICAL/SURGICAL HISTORY: Chronic obstructive pulmonary disease. Non-responsive. COMPARISON: [facility], CHEST PA & LAT, 07/25/2017. . FINDINGS: A single AP view of the chest demonstrates cardiomegaly with pulmonary vascular congestion. Left basi lar density. The cardiomediastinal contours are unremarkable. Osseous structures are intact. CONCLUSION: Cardiomegaly with increase in pulmonary vascularity. Left basilar density. Electronically signed by: Sea Loaiza MD 11/01/2017 8:15 AM EDT
--- NOTE | 2017-11-01 08:17 | XR ---
EXAM DATE: 11/01/2017 8:04 AM EDT AGE/SEX: 72 years / Female INDICATIONS: Multiple falls CLINICAL DATA: This is the patient's initial encounter. Patient reports that signs and symptoms have been present for 1 day and indicates a pain score of Nonresponsive. MEDICAL/SURGICAL HISTORY: Chronic obstructive pulmonary disease. Non-responsive. COMPARISON: No prior exams available for comparison. FINDINGS: Bony structures are intact and in normal alignment. Osseous density is normal. Soft tissues are unre markable. No radiopaque foreign bodies seen. CONCLUSION: No acute fracture Electronically signed by: Sea Loaiza MD 11/01/2017 8:15 AM EDT
[2017-11-01] MEDS ORDERED: Azithromycin Inj 500 MG in Sodium Chlor 0.9% Inj 250 ML IV.SIG ONE (09:19)
[2017-11-01] MEDS ORDERED: Bisacodyl 10 MG Supp RECTAL PRN (10:18)
[2017-11-01] MEDS ORDERED: MethylPREDNISolone Sod Succinate Inj 125 MG/2 ML Vial IV.PUSH ONE (10:21)
--- NOTE | 2017-11-01 10:32 | P.HPIM ---
History of Present Illness Primary Care Physician: Isela Escobar MD Chief Complaint: Shortness of breath History of Present Illness: Patient is a 72-year-old female with a breath increased work of breathing over the last 3 days. Within the last 7 days she was discharged from rehab and had been at [facility] the week prior to that. She reports being treated for "pneumonia". Currently she is with some tachypnea and accessory muscle use and complains of increased shortness of breath. Nebulizers did improve her symptoms. She has home O2 normally at about 2 L. She says she has been weak and fallen and cannot ambulate at home. She does live with her family. She came to the emergency room and had imaging which do not show any fractures however patient's chest x-ray does show left lower lobe infiltrate and the patient had elevated d-dimer. The in respiratory distress. She does have a DO NOT RESUSCITATE wishes acknowledged by this provider. Patient will be admitted to the ICU for further evaluation and treatment of acute respiratory failure. - Diagnosis (1) Respiratory failure (2) CVA (cerebral vascular accident) (3) HTN (hypertension) (4) COPD with acute exacerbation (5) Pneumonia Inpatient Certification: I certify that the inpatient services were ordered in accordance with Medicare regulations governing the order. This includes certification that hospital inpatient services are reasonable and necessary and in the case of services not specified as inpatient-only under 42 CFR 419.22(n), that they are appropriately provided as inpatient services in accordance to with the 2-midnight benchmark under 43 CFR 412.3(e) Estimated Total Length of Stay (Days): 3 Plans for Post Hospital Care: Home Review of Systems All other systems reviewed negative except as stated in HPI [facility] - History History Provided By: Patient - Medical History Medical History: Medical History (Last Reviewed 11/01/17 @ 10:29 by Jacqui Khoury MD) COPD (chronic obstructive pulmonary disease) CVA (cerebral vascular accident) H/O: hysterectomy Hiatal hernia Myocardial infarct - Surgical History Surgical History: Surgical History (Last Reviewed 11/01/17 @ 10:29 by Jacqui Khoury MD) History of appendectomy History of heart artery stent Hx of breast reduction, elective Hx of cholecystectomy - Family History Family History: Family History (Last Updated 11/01/17 @ 10:29 by Jacqui Khoury MD) Other Family history unknown - Tobacco History Tobacco Use In Past 30 Days: Yes Smoking Status: Current every day smoker Tobacco Type: Cigarettes - Alcohol History How Often Do You Have a Drink Containing Alcohol: Never - Substance Use History Substance History: No History of Abuse - Travel History Recent Travel in the [place] Within the Last 8 Weeks: No Recent Travel Out of the Country Within the Last 8 Weeks: No - Immunization History Tetanus Immunization: >5 Years Hx Influenza Vaccine This Season: No Medications and Allergies Active Medications: Active Medications Albuterol (Duoneb Neb (Bailee)) 1 ampul NEB Q6HR NEB BAILEE Bisacodyl (Dulcolax Supp) 10 mg RECTAL DAILY PRN PRN Reason: SEVERE CONSITIPATION Pharmacy Profile Note (Vancomycin Consult Pharmacy) 0 mls @ 0 mls/hr OTHER UNSCH BAILEE Vancomycin/Sodium Chloride (Vancomycin Inj) 1 gm in 200 mls @ 200 mls/hr IV.SIG Q12H BAILEE Cefepime HCl 1,000 mg/ Sodium (Chloride) 100 mls @ 200 mls/hr IV.SIG Q8H BAILEE Lactulose (Lactulose Liq) 30 ml PO DAILY PRN PRN Reason: SEVERE CONSITIPATION Methylprednisolone Sodium Succinate (Solumedrol Inj) 125 mg IV.PUSH ONCE ONE Stop: 11/01/17 10:22 Methylprednisolone Sodium Succinate (Solumedrol Inj) 60 mg IV.PUSH Q6H BAILEE Sodium Chloride (Ns Flush) 2 ml IV.FLUSH BID BAILEE Sodium Chloride (Ns Flush) 2 ml IV.FLUSH PRN PRN PRN Reason: FLUSH AFTER USING IV ACCESS Allergies Allergy/AdvReac Type Severity Reaction Status Date / Time acetaminophen Allergy Severe Itching Verified 11/01/17 05:58 iodine Allergy Severe Hives Verified 11/01/17 05:58 oxycodone Allergy Severe Itching Verified 11/01/17 05:58 tramadol Allergy Severe Seizures Verified 11/01/17 05:58 Home Medications Medication Instructions Recorded Confirmed Type alprazolam 0.5 mg PO BID PRN 11/01/17 11/01/17 History amlodipine 10 mg PO DAILY 11/01/17 11/01/17 History aspirin 325 mg PO DAILY 11/01/17 11/01/17 History clopidogrel [Plavix] 75 mg PO DAILY 11/01/17 11/01/17 History fenofibrate 160 mg PO DAILY 11/01/17 11/01/17 History gabapentin 600 mg PO TID 11/01/17 11/01/17 History hydrochlorothiazide 25 mg PO DAILY 11/01/17 11/01/17 History ibuprofen [Motrin IB] 800 mg PO TID 11/01/17 11/01/17 History levetiracetam 500 mg PO Q12H 11/01/17 11/01/17 History lisinopril 20 mg PO DAILY 11/01/17 11/01/17 History ropinirole 5 mg PO DAILY 11/01/17 11/01/17 History Exam Vital signs: Vital Signs 11/01/17 05:58 11/01/17 06:43 11/01/17 07:10 Pulse Rate 103 H 82 Respiratory Rate 22 20 Blood Pressure 132/74 162/91 H Pulse Oximetry 89 L 94 L 92 L Intake & Output 10/31/17 11/01/17 11/01/17 18:59 06:59 18:59 Intake Total 208 / 208 Balance 208 / 208 Weight 83.915 kg Intake: IV / 208 Azithromycin Inj 500 MG In NS 108 / 108 Inj 250 ML @ 250 mls/hr IV.SIG ONCE ONE Rx#:[id number] Maxipime Inj 1,000 MG In NS Inj 100 / 100 100 ML @ 200 mls/hr IV.SIG ONCE ONE Rx#:[id number] Narrative: GENERAL: Well-nourished, well-developed patient. Complaining of shortness of breath breath, pursed lip breathing and accessory muscle use noted SKIN: Warm and dry. HEAD: Normocephalic. EYES: No scleral icterus. No injection or drainage. NECK: Supple, trachea midline. No JVD or lymphadenopathy. CARDIOVASCULAR: Sinus tachycardia without murmurs gallops or rubs RESPIRATORY: Decreased breath sounds bilaterally with accessory muscle use and wheezes which are scattered MUSCULOSKELETAL: No cyanosis, or edema. BACK: Nontender without obvious deformity. No CVA tenderness. NEUROLOGICAL: Awake and alert. Cranial nerves II through XII intact. Motor and sensory grossly within normal limits. Five out of 5 muscle strength in all muscle groups. Normal speech. Results - Labs CBC & Chem 7: 11/01/17 06:00 11/01/17 06:00 Labs: Short CBC 11/01/17 Range/Units 06:00 WBC 7.9 (4.0-11.0) th/mm3 Hgb 12.7 (11.6-15.3) gm/dL Hct 37.7 (35.0-46.0) % Plt Count 299 (150-450) th/mm3 BMP 11/01/17 06:00 Sodium 140 Potassium 3.5 Chloride 105 Carbon Dioxide 27.5 BUN 26 H Creatinine 0.90 Calcium 9.0 Cardiac Enzymes 11/01/17 Range/Units 06:00 Troponin I Less than 0.02 L (0.02-0.05) ng/mL Liver Function 11/01/17 Range/Units 06:00 Total Bilirubin 0.3 (0.2-1.0) mg/dL AST 20 (15-37) U/L ALT 22 (10-53) U/L Alkaline Phosphatase 56 (45-117) U/L Albumin 3.3 L (3.4-5.0) g/dL Urine 11/01/17 Range/Units 06:51 Urine Color Yellow (Yellw/Straw) Urine Clarity Clear (Clear) Urine pH 5.5 (5.0-8.5) Ur Specific [place] 1.020 (1.002-1.035) Urine Protein Negative (Neg-Trace) mg/dL Urine Glucose (UA) Negative (Negative) mg/dL - Imaging Impressions Chest X-Ray 11/01/17 07:32 CONCLUSION: Cardiomegaly with increase in pulmonary vascularity. Left basilar density. Humerus X-Ray 11/01/17 07:35 CONCLUSION: No acute fracture Knee X-Ray 11/01/17 07:35 CONCLUSION: Osteoarthritis without fracture Caprini VTE Risk Assessment Caprini VTE Risk Assessment: Moderate/High Risk (score >= 2) Caprini Risk Assessment Model: Point Value = 1 Point Value = 2 Point Value = 3 Point Value = 5 Age 41-60 Minor surgery BMI > 25 kg/m2 Swollen legs Varicose veins or History of unexplained or recurrent spontaneous Oral contraceptives or hormone replacement Sepsis (< 1 month) Serious lung disease, including pneumonia (< 1 month) Abnormal pulmonary function Acute myocardial infarction Congestive heart failure (< 1 month) History of inflammatory bowel disease Medical patient at bed rest Age 61-74 Arthroscopic surgery Major open surgery (> 45 min) Laparoscopic surgery (> 45 min) Malignancy Confined to bed (> 72 hours) Immobilizing plaster cast Central venous access Age >= 75 History of VTE Family history of VTE Factor V Leiden Prothrombin [id number] Lupus anticoagulant Anticardiolipin antibodies Elevated serum homocysteine Heparin-induced thrombocytopenia Other congenital or acquired thrombophilia Stroke (< 1 month) Elective arthroplasty Hip, pelvis, or leg fracture Acute spinal cord injury (< 1 month) Prophylaxis Regimen: Total Risk Factor Score Risk Level Prophylaxis Regimen 0-1 Low Early ambulation 2 Moderate Order ONE of the following: *Sequential Compression Device (SCD) *Heparin 5000 units SQ BID 3-4 Higher Order ONE of the following medications: *Heparin 5000 units SQ TID *Enoxaparin/Lovenox 40 mg SQ daily (WT < 150 kg, CrCl > 30 mL/min) *Enoxaparin/Lovenox 30 mg SQ daily (WT < 150 kg, CrCl > 10-29 mL/min) *Enoxaparin/Lovenox 30 mg SQ BID (WT < 150 kg, CrCl > 30 mL/min) AND/OR *Sequential Compression Device (SCD) 5 or more Highest Order ONE of the following medications: *Heparin 5000 units SQ TID (Preferred with Epidurals) *Enoxaparin/Lovenox 40 mg SQ daily (WT < 150 kg, CrCl > 30 mL/min) *Enoxaparin/Lovenox 30 mg SQ daily (WT < 150 kg, CrCl > 10-29 mL/min) *Enoxaparin/Lovenox 30 mg SQ BID (WT < 150 kg, CrCl > 30 mL/min) AND *Sequential Compression Device (SCD) Assessment and Plan - Assessment (1) Respiratory failure Code(s): J96.90 - Respiratory failure, unspecified, unspecified whether with hypoxia or hypercapnia Status: Acute Plan: Patient on home O2 Continue treating pneumonia and COPD exacerbation on chronic consult pending Follow-up VQ scan given patient's d-dimer of 2, this may just be inflammatory with her pneumonia BiPAP as needed Follow-up echocardiogram as EKG reviewed by me does show some right-sided heart failure (2) CVA (cerebral vascular accident) Code(s): I63.9 - Cerebral infarction, unspecified Status: Acute Plan: Patient on Plavix and aspirin Currently blood pressure is controlled Continue with current management plan and follow while on steroids (3) HTN (hypertension) Code(s): I10 - Essential (primary) hypertension Status: Acute Plan: Currently controlled on amlodipine and hydrochlorothiazide and lisinopril No new events (4) COPD with acute exacerbation Code(s): J44.1 - Chronic obstructive pulmonary disease with (acute) exacerbation Status: Acute (5) Pneumonia Code(s): J18.9 - Pneumonia, unspecified organism Status: Acute Plan: Worrisome for healthcare associated as patient has just been discharged from [facility] rehab within the week. We will continue with cefepime and vancomycin for now follow-up with sputum - Plan Patient transferred to the ICU due to respiratory failure and excessive work of breathing. 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
[2017-11-01] MEDS ORDERED: MethylPREDNISolone Sod Succinate Inj 40 MG/ML Vial IV.PUSH SCH (11:00)
[2017-11-01] MEDS ORDERED: Vancomycin Consult Pharmacy 1 EACH OTHER SCH (11:00)
[2017-11-01] MEDS ORDERED: ALPRAZolam 0.5 MG Tablet PO PRN (11:00)
[2017-11-01] MEDS ORDERED: Vancomycin Inj 1 GM/200 ML PIGGYBACK IV.SIG SCH (11:00)
[2017-11-01] MEDS ORDERED: Azithromycin Inj 500 MG in Sodium Chlor 0.9% Inj 250 ML IV.SIG SCH (11:00)
--- NOTE | 2017-11-01 11:41 | NM ---
EXAM DATE: 11/01/2017 11:37 AM EDT AGE/SEX: 72 years / Female INDICATIONS: Dyspnea. Embolus. CLINICAL DATA: This is the patient's initial encounter. Patient reports that signs and symptoms have been present for 1 day and indicates a pain score of 0/10. MEDICAL/SURGICAL HISTORY: Myocardial infarction. Chronic obstructive pulmonary disease. Cereb rovascular disease. Hysterectomy. Cholecystectomy. Coronary artery stent. Appendectomy. COMPARISON: [facility], CHEST 1V SINGLE AP, 11/01/2017. . DOSE: 1 mCi Tc99m DTPA aerosol 8.8 mCi Tc99m MAA IV TECHNIQUE: Following five minutes of tidal breathing of DTPA aerosol, planar images of the lungs wer e performed in eight projections. The patient was then injected with MAA, and eight-view perfusion s can was performed. FINDINGS: There is a heterogeneous pattern of aerosol delivery to the periphery of both lungs. No focal ventil atory defects are seen. The perfusion lung scan demonstrates a homogenous pattern of uptake in both lungs. No segmental or s ubsegmental defects are seen. CONCLUSION: 1. Low probability for pulmonary embolism. Electronically signed by: Sea Loaiza MD 11/01/2017 11:39 AM EDT
[2017-11-01 12:06] LABS: ABG Base Excess 4.3 mmol/L (-2-2); ABG PCO2 48 mmHg (38-42); ABG PO2 69 mmHg (61-120)
[2017-11-01 12:35] LABS: Baso % (Auto) 0.2 % (0.0-2.0); Eos % (Auto) 0.4 % (0.0-4.0); Hematocrit 39.1 % (35.0-46.0); Hemoglobin 12.6 gm/dL (11.6-15.3); Lymph # (Auto) 0.4 th/mm3 (1.0-4.8); Lymph % (Auto) 6.2 % (9.0-44.0); Mean Corpuscular HGB Conc 32.2 % (32.0-36.0); Mean Corpuscular Hemoglobin 28.3 pg (27.0-34.0); Mean Corpuscular Volume 87.8 fL (80.0-100.0); Mean Platelet Volume 8.3 fL (7.0-11.0); Mono % (Auto) 0.5 % (0.0-8.0); Neut # (Auto) 5.6 th/mm3 (1.8-7.7); Neut % (Auto) 92.7 % (16.0-70.0); Platelet Count 276 th/mm3 (150-450); Red Blood Count 4.45 mil/mm3 (4.00-5.30); Red Cell Distribution Width 13.4 % (11.6-17.2)
[2017-11-01] MEDS: Gabapentin 300 MG Capsule PO SCH ×2 (12:37→18:35)
[2017-11-01] MEDS: Vancomycin Inj 1,500 MG in Sodium Chlor 0.9% Inj 500 ML IV.SIG SCH (12:37)
[2017-11-01] MEDS: levETIRAcetam 500 MG Tablet PO SCH ×2 (12:37→23:48)
--- NOTE | 2017-11-01 13:46 | ECG ---
Date Performed: 11/01/2017 Time Performed: 06:49:06 PTAGE: 72 years EKG: Sinus rhythm POSSIBLE LEFT ATRIAL ENLARGEMENT LOW QRS VOLTAGE IN PRECORDIAL LEADS INFERIOR MYOCARDIAL INFARCTION ABNORMAL ECG PREVIOUS TRACING : 07/25/2017 21.46 DOCTOR: Bird Bee Interpretating Date/Time 11/01/2017 13:44:12
[2017-11-01] MEDS ORDERED: Heparin - SQ 10,000 UNITS/ML Vial SQ SCH (14:00)
--- NOTE | 2017-11-01 15:28 | ECHRPT ---
Indication: SOB CONCLUSIONS Normal left ventricular size. Wall thickness is measured at the upper limits of normal. The left ventricular systolic function is normal with an estimated ejection fraction in the range of 60-65%. Mitral annular calcification is present. The estimated pulmonary arterial pressure is 36 mmHg. A moderate sized pericardial effusion is noted, mostly posterior/apical, but with signs of early gallardo ponade. BP: / HR: Rhythm: MEASUREMENTS (Male / Female) Normal Values Technical Quality: 2D ECHO LV Diastolic Diameter PLAX 5.0 cm 4.2 - 5.9 / 3.9 - 5.3 cm LV Systolic Diameter PLAX 3.6 cm IVS Diastolic Thickness 1.2 cm 0.6 - 1.0 / 0.6 - 0.9 cm LVPW Diastolic Thickness 0.8 cm 0.6 - 1.0 / 0.6 - 0.9 cm LV Relative Wall Thickness 0.4 RV Internal Dim ED PLAX 2.4 cm LA Systolic Diameter LX 3.9 cm 3.0 - 4.0 / 2.7 - 3.8 cm DOPPLER Mitral E Point Velocity 80.5 cm/s Mitral A Point Velocity 113.0 cm/s Mitral E to A Ratio 0.7 TR Peak Velocity 229.0 cm/s TR Peak Gradient 21.0 mmHg Right Atrial Pressure 15.0 mmHg Pulmonary Artery Systolic Pressu 36.0 mmHg Right Ventricular Systolic Press 36.0 mmHg FINDINGS LEFT VENTRICLE Normal left ventricular size. Wall thickness is measured at the upper limits of normal. The left ventricular systolic function is normal with an estimated ejection fraction in the range of 60-65%. MITRAL VALVE Mitral annular calcification is present. TRICUSPID VALVE The estimated pulmonary arterial pressure is 36 mmHg. There is trace tricuspid valve regurgitation. VESSELS The inferior vena cava is dilated. PERICARDIUM There is a moderate pericardial effusion present. The pericardial effusion is primarily located posteriorly. The pericardial effusion is primarily located adjacent to the left ventricle. The pericardial effusion is partially loculated with fibrinous strands. There was abnormal respirophasic change in transvalvular flow velocities observed. Levy Chery MD (Electronically Signed) Final Date:01 November 2017 15:26
--- NOTE | 2017-11-01 15:53 | MB ---
cc: Yris Robledo MD, V J MD DATE: 11/01/2017 HISTORY OF PRESENT ILLNESS: The patient is a 72-year-old white female with a known history of COPD, followed by Dr. Duff. She was recently hospitalized in [facility] where they recently moved with pneumonia and respiratory failure. She required BiPAP therapy and was subsequently discharged to a nursing facility but came in today now because she had increasing shortness of breath. On presentation, she was tachypneic with oxygen desaturation. She was admitted to the floor, initially seemed stable, but then she became more dyspneic. Blood gases were done, and on 4 L of oxygen, her pO2 was 69 with pH of 7.4, pCO2 of 48. She was moved to the intensive care unit. She is awake presently, provides a reasonably good history, and does not seem to be in any distress. Initial chest x-ray revealed increased vascular engorgement, and because of an elevated D-dimer, she had a perfusion scan which was low probability for pulmonary embolism. She was begun on aerosolized bronchodilators along with corticosteroids, and because of recent admission and an abnormal x-ray, she was started on cefepime and vancomycin for possible healthcare-related pneumonia. She denies chest pain. She did have a previous diagnosis of coronary artery disease and had a stent placed, but she does not see cardiology regularly and could not tell me who the sales office assistant was. No unusual cough. No purulent sputum. She has not had increased edema. PAST MEDICAL HISTORY: COPD, previous stroke, hysterectomy, history of hiatal hernia, history of an MA with a stent placed, appendectomy, elective breast reduction, and cholecystectomy. ALLERGIES: ACETAMINOPHEN, IODINE, OXYCODONE, AND TRAMADOL. At home, she says that she uses an inhaler, but she does not remember the name. Other medicines are recorded in the EMR. CURRENT MEDICATIONS: Reviewed in the EMR. PHYSICAL EXAMINATION: GENERAL: No distress. VITAL SIGNS: Afebrile, 97 degrees, pulse 100, respirations 26, blood pressure 140/87, and O2 saturation is 94% on 4 L. HEENT: Sclerae are anicteric. NECK: Veins are flat. LUNGS: Diminished throughout, prolonged expiration, but no significant congestion. HEART: Regular rhythm. No harsh murmur. ABDOMEN: Obese. She has no significant edema. No calf tenderness. ADDITIONAL LABORATORY DATA: White count 6000, hemoglobin 12, platelets 276, BUN 26, creatinine 0.9. BNP is 44. DISCUSSION: The patient has a history of COPD, recent hospitalization with pneumonia. Chest x-ray looks fairly clear. The heart is enlarged, though. I will order an echocardiogram, although it does not appear that she is in congestive heart failure, and her BNP is quite low. We will continue aerosolized bronchodilators, antibiotics pending culture reports, and corticosteroids along with oxygen. Dr. Duff will resume her care tomorrow. Further diagnostic and/or therapeutic intervention will depend on her ongoing clinical course and response to therapy. R. MD KAMALA GannonW/chris , 03:19 PM , 03:27 PM
[2017-11-01 16:21] LABS: Activated Partial Thrombo Time 22.9 sec (24.3-30.1); INR 1.1 Ratio; Prothrombin Time 10.7 sec (9.8-11.6)
[2017-11-01] MEDS: MethylPREDNISolone Sod Succinate Inj 125 MG/2 ML Vial IV.PUSH SCH ×2 (18:35→23:47)
--- NOTE | 2017-11-01 19:10 | MB ---
cc: Levy Chery MD DATE: 11/01/2017 REASON FOR CONSULTATION: Shortness of breath and pericardial effusion. HISTORY OF PRESENT ILLNESS: The patient is a very pleasant 72-year-old woman who sees my partner, Dr. Wright, who has a history of multiple medical problems including COPD with ongoing tobacco abuse, chronic pain, multiple recent pneumonias, who presented with worsening shortness of breath. The patient has been having shortness of breath over the last several months, which has been attributed to these pneumonias, but had been progressing, so she presented again and was felt to be in near respiratory failure and thus was admitted to the ICU in [place]. As part of her workup, she underwent an echocardiogram, which showed a moderate pericardial effusion, mostly posterior and adjacent to the left ventricle; however, there were signs of tamponade, primarily due to the respiratory variance with pressures across the tricuspid valve. The patient currently is comfortable on oxygen as long as she is lying flat, but has had shortness of breath with pretty much any activity. She denies any current chest pain, lightheadedness, dizziness, syncope. PAST MEDICAL HISTORY: 1. Coronary artery disease, status post stent in 2014, but maintained on Plavix (per patient). 2. Tobacco abuse. 3. COPD. 4. Obesity. 5. Chronic pain. CURRENT MEDICATIONS: 1. Albuterol. 2. Norvasc 10 mg daily. 3. Aspirin 325 mg daily. 4. Plavix 75 mg daily. 5. Tricor 145 mg daily. 6. Neurontin. 7. Subcutaneous heparin. 8. Lactulose. 9. Keppra. 10. Prinivil 20 mg daily. ALLERGIES: ACETAMINOPHEN, IODINE, OXYCODONE, TRAMADOL. PHYSICAL EXAMINATION: VITAL SIGNS: Afebrile, pulse 100, respiratory rate 32, blood pressure 143/87, saturating 92 on 3 liters. GENERAL: Pleasant, obese woman in no distress. NECK: No JVD. LUNGS: Decreased breath sounds in all busch. CARDIOVASCULAR: Regular rate and rhythm. Perhaps a very soft rub is appreciated. ABDOMEN: Benign. EXTREMITIES: Trace edema bilaterally. LABORATORY DATA: White count 6.0, hematocrit 39.1, platelets 276. Sodium 140, potassium 3.5, chloride 105, bicarbonate 27.5, BUN 26, creatinine 0.9, glucose 190. EKG shows sinus rhythm with low voltages with an old inferior myocardial infarction. A V/Q scan showed no pulmonary embolus. Chest x-ray shows cardiomegaly with increase in pulmonary vascularity. IMPRESSION: Pericardial effusion. The patient has what appears to be a somewhat chronic pericardial effusion with thrombus and loculated areas within it. Though the effusion is not very large (I would call it moderate), there are signs of intraventricular dependence seen with the respiratory variance and the pressures across the tricuspid valve. However, the patient is on Plavix as well as aspirin, which would increase her risk of pericardiocentesis, particularly given the difficult location of the fluid. I discussed the case with interventional radiologist and we believe the safest course of action would be to transfer her to the ICU at the main hospital and try to allow the Plavix to wear off while carefully monitoring her. If she requires an urgent pericardiocentesis, it will be done, but if we can keep her stable and allow time for the Plavix to wear off, a more safe procedure could be performed later this week. Further recommendations based on the above. Thank you again for the opportunity to participate in this patient's care. MD YISEL Salcido/tamica , 04:10 PM , 04:19 PM
[2017-11-01] MEDS: oxyCODONE/Acetaminophen 10/325 Tablet PO PRN (23:48)
[2017-11-02] MEDS: MethylPREDNISolone Sod Succinate Inj 125 MG/2 ML Vial IV.PUSH SCH ×3 (04:05→17:05)
[2017-11-02 05:48] LABS: Baso % (Auto) 0.1 % (0.0-2.0); Hematocrit 37.6 % (35.0-46.0); Hemoglobin 12.5 gm/dL (11.6-15.3); Lymph # (Auto) 0.5 th/mm3 (1.0-4.8); Lymph % (Auto) 5.6 % (9.0-44.0); Mean Corpuscular HGB Conc 33.3 % (32.0-36.0); Mean Corpuscular Hemoglobin 28.7 pg (27.0-34.0); Mean Corpuscular Volume 86.3 fL (80.0-100.0); Mean Platelet Volume 8.6 fL (7.0-11.0); Mono # (Auto) 0.2 th/mm3 (0.0-0.9); Mono % (Auto) 1.9 % (0.0-8.0); Neut # (Auto) 7.6 th/mm3 (1.8-7.7); Neut % (Auto) 92.4 % (16.0-70.0); Platelet Count 261 th/mm3 (150-450); Red Blood Count 4.35 mil/mm3 (4.00-5.30); Red Cell Distribution Width 14.3 % (11.6-17.2); White Blood Count 8.2 th/mm3 (4.0-11.0)
[2017-11-02] MEDS: oxyCODONE/Acetaminophen 10/325 Tablet PO PRN ×2 (05:54→18:13)
[2017-11-02 06:11] LABS: Calcium 8.9 mg/dL (8.5-10.1); Carbon Dioxide 29.7 meq/L (21.0-32.0); Potassium 3.8 meq/L (3.5-5.1)
--- NOTE | 2017-11-02 08:00 | P.PNIM ---
Subjective Interval history: f/u; COPD exacerbation/ pericardial effusion in no acute distress- however on oxygen via [place]. says that her sob is better. still has some cough. no fever. d/w the RN. Physical Exam Vital signs: Vital Signs 11/01/17 09:00 11/01/17 10:49 11/01/17 10:56 Temperature Pulse Rate 95 H 85 84 Respiratory Rate 32 H 28 H Blood Pressure Pulse Oximetry 91 L 91 L 11/01/17 10:58 11/01/17 11:46 11/01/17 11:47 Temperature Pulse Rate Respiratory Rate 23 Blood Pressure 129/60 Pulse Oximetry 95 90 L 11/01/17 12:00 11/01/17 13:00 11/01/17 14:00 Temperature 97.9 F 98.7 F Pulse Rate 92 H 94 H 96 H Respiratory Rate 28 H 30 H 27 H Blood Pressure 143/87 H 131/67 Pulse Oximetry 92 L 94 L 94 L 11/01/17 15:00 11/01/17 15:06 11/01/17 15:09 Temperature 98.7 F Pulse Rate 92 H 100 H Respiratory Rate 23 32 H Blood Pressure Pulse Oximetry 94 L 11/01/17 16:00 11/01/17 16:08 11/01/17 18:00 Temperature 98.2 F Pulse Rate 104 H 106 H 101 H Respiratory Rate 30 H 25 H 30 H Blood Pressure 123/78 144/83 H Pulse Oximetry 92 L 93 L 95 11/01/17 20:00 11/02/17 00:00 11/02/17 01:00 Temperature 98.5 F 98.0 F Pulse Rate 104 H 102 H Respiratory Rate 26 H 22 18 Blood Pressure 146/81 H 166/86 H Pulse Oximetry 26 L 95 11/02/17 04:00 11/02/17 06:28 Temperature 97.7 F Pulse Rate 92 H Respiratory Rate 23 22 Blood Pressure 181/93 H Pulse Oximetry 93 L Intake & Output 11/01/17 11/02/17 11/02/17 18:59 06:59 18:59 Intake Total 823 / 823 440 / 440 Output Total 550 / 550 1400 / 1400 Balance 273 / 273 -960 / -960 Weight 100.3 kg 101.5 kg Intake: IV 823 / 823 200 / 200 Azithromycin Inj 500 MG In NS 108 / 108 Inj 250 ML @ 250 mls/hr IV.SIG ONCE ONE Rx#:[id number] Maxipime Inj 1,000 MG In NS Inj 200 / 200 200 / 200 100 ML @ 200 mls/hr IV.SIG Q8H [facility] Rx#:[id number] Vancomycin Inj 1,500 MG In NS 515 / 515 Inj 500 ML @ 250 mls/hr IV.SIG Q24H [facility] Rx#:[id number] Oral 240 / 240 Output: Urine 550 / 550 Urine Amount (Catheter) 1400 / 1400 Indwelling Urethral Catheter 1400 / 1400 Other: Weight On Admission 100.3 kg - Constitutional mild distress - Routine Neck Exam Present: supple - Routine Respiratory Exam Present: CTA bilaterally, wheezes - Routine Cardiovascular Exam Present: RRR - Routine Abdominal Exam Present: soft - Routine Extremities Exam Comments: no pedal edema. - Routine Neurological Exam Present: alert, oriented X3 - Urinary Catheter Management Indwelling Urethral Catheter Cath placed during this visit: yes Reason for continuing: Hourly intake/output Insertion date: 11/01/17 Insertion time: 06:45 Results - Labs CBC & Chem 7: 11/02/17 04:50 11/02/17 04:50 Laboratory Results - last 24 hr 11/01/17 11/01/17 11/01/17 11:58 12:27 15:33 CBC w Diff Auto diff final WBC 6.0 RBC 4.45 Hgb 12.6 Hct 39.1 MCV 87.8 MCH 28.3 MCHC 32.2 RDW 13.4 Plt Count 276 MPV 8.3 Neut % (Auto) 92.7 H Lymph % (Auto) 6.2 L [place] % (Auto) 0.5 Eos % (Auto) 0.4 Baso % (Auto) 0.2 Neut # (Auto) 5.6 Lymph # (Auto) 0.4 L [place] # (Auto) 0.0 Eos # (Auto) 0.0 Baso # (Auto) 0.0 WBC Differential . Differential Comment . PT 10.7 INR 1.1 APTT 22.9 L Puncture Site Right brachial Patient Temperature 98.6 O2 Saturation 92 ABG pH 7.40 ABG pCO2 48 H ABG pO2 69 ABG HCO3 29 H ABG O2 Content 15.9 ABG Base Excess 4.3 H ABG Methemoglobin 0.4 Hemoglobin 12.3 Carboxyhemoglobin 2.0 O2 Delivery Device Nasal cannula Liter Flow 4.00 Inspired O2 21 Critical Value No Sodium Potassium Chloride Carbon Dioxide Anion Gap BUN Creatinine Estimated GFR Random Glucose Calcium 11/02/17 11/02/17 04:50 04:50 CBC w Diff WBC 8.2 RBC 4.35 Hgb 12.5 Hct 37.6 MCV 86.3 MCH 28.7 MCHC 33.3 RDW 14.3 Plt Count 261 MPV 8.6 Neut % (Auto) 92.4 H Lymph % (Auto) 5.6 L [place] % (Auto) 1.9 Eos % (Auto) 0.0 Baso % (Auto) 0.1 Neut # (Auto) 7.6 Lymph # (Auto) 0.5 L [place] # (Auto) 0.2 Eos # (Auto) 0.0 Baso # (Auto) 0.0 WBC Differential . Differential Comment Auto diff final PT INR APTT Puncture Site Patient Temperature O2 Saturation ABG pH ABG pCO2 ABG pO2 ABG HCO3 ABG O2 Content ABG Base Excess ABG Methemoglobin Hemoglobin Carboxyhemoglobin O2 Delivery Device Liter Flow Inspired O2 Critical Value Sodium 142 Potassium 3.8 Chloride 104 Carbon Dioxide 29.7 Anion Gap 8 BUN 27 H Creatinine 1.01 H Estimated GFR 54 L Random Glucose 235 H D Calcium 8.9 - Imaging Impressions Chest X-Ray 11/01/17 07:32 CONCLUSION: Cardiomegaly with increase in pulmonary vascularity. Left basilar density. Humerus X-Ray 11/01/17 07:35 CONCLUSION: No acute fracture Knee X-Ray 11/01/17 07:35 CONCLUSION: Osteoarthritis without fracture Pulmonary Perfusion Imaging 11/01/17 08:51 CONCLUSION: 1. Low probability for pulmonary embolism. Assessment and Plan - Assessment (1) Respiratory failure Code(s): J96.90 - Respiratory failure, unspecified, unspecified whether with hypoxia or hypercapnia Status: Acute Plan: Patient on home O2 Continue treating pneumonia and COPD exacerbation on chronic consult pending Follow-up VQ scan given patient's d-dimer of 2, this may just be inflammatory with her pneumonia BiPAP as needed Follow-up echocardiogram as EKG reviewed by me does show some right-sided heart failure (2) CVA (cerebral vascular accident) Code(s): I63.9 - Cerebral infarction, unspecified Status: Acute Plan: Patient on Plavix and aspirin Currently blood pressure is controlled Continue with current management plan and follow while on steroids (3) HTN (hypertension) Code(s): I10 - Essential (primary) hypertension Status: Acute Plan: Currently controlled on amlodipine and hydrochlorothiazide and lisinopril No new events (4) COPD with acute exacerbation Code(s): J44.1 - Chronic obstructive pulmonary disease with (acute) exacerbation Status: Acute (5) Pneumonia Code(s): J18.9 - Pneumonia, unspecified organism Status: Acute Plan: Worrisome for healthcare associated as patient has just been discharged from [facility] rehab within the week. We will continue with cefepime and vancomycin for now follow-up with sputum - Plan acute on chronic hypoxemic respiratory failure Patient on home O2 Continue treating pneumonia and COPD exacerbation with antibiotics, neb treatments and IV steroids- BiPAP as needed V/Q scan with low probability for PE. pulmonary consulted. pericardial effusion cardiology consulted. CVA (cerebral vascular accident) Patient on Plavix and aspirin Continue with current management plan HTN (hypertension) on amlodipine and hydrochlorothiazide and lisinopril No new events Pneumonia Worrisome for healthcare associated as patient has just been discharged from [facility] reh within the week. We will continue with cefepime and vancomycin for now follow-up with sputum culture.
--- NOTE | 2017-11-02 08:52 | P.PN ---
Subjective Interval history: Pt says she is actually feeling better, less sob Physical Exam Vital signs: Vital Signs 11/01/17 09:00 11/01/17 10:49 11/01/17 10:56 Temperature Pulse Rate 95 H 85 84 Respiratory Rate 32 H 28 H Blood Pressure Pulse Oximetry 91 L 91 L 11/01/17 10:58 11/01/17 11:46 11/01/17 11:47 Temperature Pulse Rate Respiratory Rate 23 Blood Pressure 129/60 Pulse Oximetry 95 90 L 11/01/17 12:00 11/01/17 13:00 11/01/17 14:00 Temperature 97.9 F 98.7 F Pulse Rate 92 H 94 H 96 H Respiratory Rate 28 H 30 H 27 H Blood Pressure 143/87 H 131/67 Pulse Oximetry 92 L 94 L 94 L 11/01/17 15:00 11/01/17 15:06 11/01/17 15:09 Temperature 98.7 F Pulse Rate 92 H 100 H Respiratory Rate 23 32 H Blood Pressure Pulse Oximetry 94 L 11/01/17 16:00 11/01/17 16:08 11/01/17 18:00 Temperature 98.2 F Pulse Rate 104 H 106 H 101 H Respiratory Rate 30 H 25 H 30 H Blood Pressure 123/78 144/83 H Pulse Oximetry 92 L 93 L 95 11/01/17 20:00 11/02/17 00:00 11/02/17 01:00 Temperature 98.5 F 98.0 F Pulse Rate 104 H 102 H Respiratory Rate 26 H 22 18 Blood Pressure 146/81 H 166/86 H Pulse Oximetry 26 L 95 11/02/17 04:00 11/02/17 06:28 11/02/17 08:00 Temperature 97.7 F Pulse Rate 92 H Respiratory Rate 23 22 25 H Blood Pressure 181/93 H Pulse Oximetry 93 L 95 11/02/17 08:18 11/02/17 08:19 Temperature Pulse Rate 91 H Respiratory Rate 18 Blood Pressure Pulse Oximetry 96 Intake & Output 11/01/17 11/02/17 11/02/17 18:59 06:59 18:59 Intake Total 823 / 823 440 / 440 Output Total 550 / 550 1400 / 1400 Balance 273 / 273 -960 / -960 Weight 100.3 kg 101.5 kg Intake: IV 823 / 823 200 / 200 Azithromycin Inj 500 MG In NS 108 / 108 Inj 250 ML @ 250 mls/hr IV.SIG ONCE ONE Rx#:[id number] Maxipime Inj 1,000 MG In NS Inj 200 / 200 200 / 200 100 ML @ 200 mls/hr IV.SIG Q8H [facility] Rx#:[id number] Vancomycin Inj 1,500 MG In NS 515 / 515 Inj 500 ML @ 250 mls/hr IV.SIG Q24H [facility] Rx#:[id number] Oral 240 / 240 Output: Urine 550 / 550 Urine Amount (Catheter) 1400 / 1400 Indwelling Urethral Catheter 1400 / 1400 Other: Date of Last Bowel Movement 11/01/17 Weight On Admission 100.3 kg - Constitutional no acute distress - Routine HEENT Exam Head: Present: normocephalic Eye: Present: EOMI - Routine Neck Exam Present: supple. Absent: JVD - Routine Respiratory Exam Present: distant breath sounds, diminished air movement - Routine Cardiovascular Exam Present: RRR. Absent: murmur - Routine Abdominal Exam Present: soft - Routine Extremities Exam Absent: edema - Urinary Catheter Management Indwelling Urethral Catheter Cath placed during this visit: yes Reason for continuing: Hourly intake/output Insertion date: 11/01/17 Insertion time: 06:45 Results - Labs CBC & Chem 7: 11/02/17 04:50 11/02/17 04:50 Laboratory Results - last 24 hr 11/01/17 11/01/17 11/01/17 11:58 12:27 15:33 CBC w Diff Auto diff final WBC 6.0 RBC 4.45 Hgb 12.6 Hct 39.1 MCV 87.8 MCH 28.3 MCHC 32.2 RDW 13.4 Plt Count 276 MPV 8.3 Neut % (Auto) 92.7 H Lymph % (Auto) 6.2 L [place] % (Auto) 0.5 Eos % (Auto) 0.4 Baso % (Auto) 0.2 Neut # (Auto) 5.6 Lymph # (Auto) 0.4 L [place] # (Auto) 0.0 Eos # (Auto) 0.0 Baso # (Auto) 0.0 WBC Differential . Differential Comment . PT 10.7 INR 1.1 APTT 22.9 L Puncture Site Right brachial Patient Temperature 98.6 O2 Saturation 92 ABG pH 7.40 ABG pCO2 48 H ABG pO2 69 ABG HCO3 29 H ABG O2 Content 15.9 ABG Base Excess 4.3 H ABG Methemoglobin 0.4 Hemoglobin 12.3 Carboxyhemoglobin 2.0 O2 Delivery Device Nasal cannula Liter Flow 4.00 Inspired O2 21 Critical Value No Sodium Potassium Chloride Carbon Dioxide Anion Gap BUN Creatinine Estimated GFR Random Glucose Calcium 11/02/17 11/02/17 04:50 04:50 CBC w Diff WBC 8.2 RBC 4.35 Hgb 12.5 Hct 37.6 MCV 86.3 MCH 28.7 MCHC 33.3 RDW 14.3 Plt Count 261 MPV 8.6 Neut % (Auto) 92.4 H Lymph % (Auto) 5.6 L [place] % (Auto) 1.9 Eos % (Auto) 0.0 Baso % (Auto) 0.1 Neut # (Auto) 7.6 Lymph # (Auto) 0.5 L [place] # (Auto) 0.2 Eos # (Auto) 0.0 Baso # (Auto) 0.0 WBC Differential . Differential Comment Auto diff final PT INR APTT Puncture Site Patient Temperature O2 Saturation ABG pH ABG pCO2 ABG pO2 ABG HCO3 ABG O2 Content ABG Base Excess ABG Methemoglobin Hemoglobin Carboxyhemoglobin O2 Delivery Device Liter Flow Inspired O2 Critical Value Sodium 142 Potassium 3.8 Chloride 104 Carbon Dioxide 29.7 Anion Gap 8 BUN 27 H Creatinine 1.01 H Estimated GFR 54 L Random Glucose 235 H D Calcium 8.9 - Imaging Impressions Pulmonary Perfusion Imaging 11/01/17 08:51 CONCLUSION: 1. Low probability for pulmonary embolism. Assessment and Plan - Assessment (1) Pericardial effusion Code(s): I31.3 - Pericardial effusion (noninflammatory) Status: Acute Plan: Though effusion did seem to show some hemodynamic compromise by echo, the overall volume wasn't particularly high and pt looks fairly stable, able to lie flat (though on O2). Plan is to hold plavix, will repeat echo late tomorrow to see if any change to effusion, question will be whether to place drain or do a window as the location is somewhat challenging. (2) COPD with acute exacerbation Code(s): J44.1 - Chronic obstructive pulmonary disease with (acute) exacerbation Status: Acute (3) Respiratory failure Code(s): J96.90 - Respiratory failure, unspecified, unspecified whether with hypoxia or hypercapnia Status: Acute
[2017-11-02] MEDS: Aspirin 325 MG Tablet PO SCH ×2 (09:00→13:01)
[2017-11-02] MEDS: levETIRAcetam 500 MG Tablet PO SCH ×2 (12:00→22:32)
[2017-11-02] MEDS: Fenofibrate 145 MG Tablet PO SCH ×2 (13:01→13:04)
[2017-11-02] MEDS: amLODIPine 10 MG Tablet PO SCH ×2 (13:02→13:03)
[2017-11-02] MEDS: Gabapentin 300 MG Capsule PO SCH ×3 (13:02→18:06)
[2017-11-02] MEDS: Lisinopril 20 MG Tablet PO SCH ×2 (13:04)
[2017-11-02] MEDS: Vancomycin Inj 1,500 MG in Sodium Chlor 0.9% Inj 500 ML IV.SIG SCH (13:30)
--- NOTE | 2017-11-02 19:08 | P.PN ---
Subjective Interval history: has some cough and wheezing. On IV solumedrol . Cannot use BiPAP . Good output. Physical Exam Vital signs: Vital Signs 11/01/17 20:00 11/02/17 00:00 11/02/17 01:00 Temperature 98.5 F 98.0 F Pulse Rate 104 H 102 H Respiratory Rate 26 H 22 18 Blood Pressure 146/81 H 166/86 H Pulse Oximetry 26 L 95 11/02/17 04:00 11/02/17 06:28 11/02/17 08:00 Temperature 97.7 F 97.9 F Pulse Rate 92 H 95 H Respiratory Rate 23 22 20 Blood Pressure 181/93 H 164/88 H Pulse Oximetry 93 L 93 L 11/02/17 08:18 11/02/17 08:19 11/02/17 09:00 Temperature Pulse Rate 91 H 91 H Respiratory Rate 18 Blood Pressure Pulse Oximetry 96 11/02/17 12:00 11/02/17 15:38 11/02/17 16:00 Temperature 98.1 F 97.6 F Pulse Rate 90 74 88 Respiratory Rate 20 18 27 H Blood Pressure 147/87 H 154/86 H Pulse Oximetry 98 99 Intake & Output 11/02/17 11/02/17 11/03/17 06:59 18:59 06:59 Intake Total 440 / 440 925 / 925 Output Total 1400 / 1400 900 / 900 Balance -960 / -960 25 / 25 Weight 101.5 kg Intake: IV 200 / 200 100 / 100 Maxipime Inj 1,000 MG In NS Inj 200 / 200 100 / 100 100 ML @ 200 mls/hr IV.SIG Q8H [facility] Rx#:[id number] Oral 240 / 240 825 / 825 Output: Urine Amount (Catheter) 1400 / 1400 900 / 900 Indwelling Urethral Catheter 1400 / 1400 900 / 900 Other: Date of Last Bowel Movement 11/01/17 GENERAL: obese elderly W/F ,no distress SKIN: Warm and dry. HEAD: Normocephalic. EYES: No scleral icterus. No injection or drainage. NECK: Supple, trachea midline. No JVD or lymphadenopathy. CARDIOVASCULAR: Regular rate and rhythm without murmurs, gallops, or rubs. RESPIRATORY: Breath sounds equal bilaterally. Basal crackles and scattered wheeze. No accessory muscle use. GASTROINTESTINAL: Abdomen soft, non-tender, nondistended. MUSCULOSKELETAL: No cyanosis, 1 + edema. BACK: Nontender without obvious deformity. No CVA tenderness. - Urinary Catheter Management Indwelling Urethral Catheter Cath placed during this visit: yes Reason for continuing: Hourly intake/output Insertion date: 11/01/17 Insertion time: 06:45 Results - Labs CBC & Chem 7: 11/02/17 04:50 11/02/17 04:50 Laboratory Results - last 24 hr 11/02/17 11/02/17 04:50 04:50 WBC 8.2 RBC 4.35 Hgb 12.5 Hct 37.6 MCV 86.3 MCH 28.7 MCHC 33.3 RDW 14.3 Plt Count 261 MPV 8.6 Neut % (Auto) 92.4 H Lymph % (Auto) 5.6 L [place] % (Auto) 1.9 Eos % (Auto) 0.0 Baso % (Auto) 0.1 Neut # (Auto) 7.6 Lymph # (Auto) 0.5 L [place] # (Auto) 0.2 Eos # (Auto) 0.0 Baso # (Auto) 0.0 WBC Differential . Differential Comment Auto diff final Sodium 142 Potassium 3.8 Chloride 104 Carbon Dioxide 29.7 Anion Gap 8 BUN 27 H Creatinine 1.01 H Estimated GFR 54 L Random Glucose 235 H D Calcium 8.9 Assessment and Plan - Assessment (1) COPD with acute exacerbation Code(s): J44.1 - Chronic obstructive pulmonary disease with (acute) exacerbation Status: Acute (2) Pneumonia Code(s): J18.9 - Pneumonia, unspecified organism Status: Acute (3) Respiratory failure Code(s): J96.90 - Respiratory failure, unspecified, unspecified whether with hypoxia or hypercapnia Status: Acute (4) CVA (cerebral vascular accident) Code(s): I63.9 - Cerebral infarction, unspecified Status: Acute (5) HTN (hypertension) Code(s): I10 - Essential (primary) hypertension Status: Acute (6) Pericardial effusion Code(s): I31.3 - Pericardial effusion (noninflammatory) Status: Acute - Plan 1. Taper solumedrol to 40 mg IV q6H. 2. 2 D Echo in am for pericardial effusion 3. Nebs qid , duoneb. 4. O2 at 3 L. 5. BiPAP at HS 12/5 cm FIo2 30 % 6. CXR , CBC,BMP in am 7. Symbicort 160/4.5 mcg , 2 puffs BID
[2017-11-02] MEDS: MethylPREDNISolone Sod Succinate Inj 40 MG/ML Vial IV.PUSH SCH (20:25)
[2017-11-03] MEDS: MethylPREDNISolone Sod Succinate Inj 40 MG/ML Vial IV.PUSH SCH ×5 (00:38→22:42)
--- NOTE | 2017-11-03 03:40 | XR ---
EXAM DATE: 11/03/2017 3:37 AM EDT AGE/SEX: 72 years / Female INDICATIONS: Edema. CLINICAL DATA: This is the patient's subsequent encounter. Patient reports that signs and symptoms h ave been present for 3 days and indicates a pain score of Nonresponsive. MEDICAL/SURGICAL HISTORY: Chronic obstructive pulmonary disease. Non-responsive. COMPARISON: [facility], CHEST 1V SINGLE AP, 11/01/2017. . FINDINGS: A single AP view of the chest demonstrates cardiomegaly and left basilar density. Increase in pulmona ry vascularity. The cardiomediastinal contours are unremarkable. Osseous structures are intact. CONCLUSION: Cardiomegaly with increase in pulmonary vascularity and left basilar density Electronically signed by: Sea Loaiza MD 11/03/2017 3:38 AM EDT
[2017-11-03] MEDS: oxyCODONE/Acetaminophen 10/325 Tablet PO PRN ×4 (03:55→18:08)
--- NOTE | 2017-11-03 08:03 | P.PN ---
Subjective Interval history: Noted some chest pain overnight, now resolved, breathing well currently Physical Exam Vital signs: Vital Signs 11/02/17 08:18 11/02/17 08:19 11/02/17 09:00 Temperature Pulse Rate 91 H 91 H Respiratory Rate 18 Blood Pressure Pulse Oximetry 96 11/02/17 12:00 11/02/17 15:38 11/02/17 16:00 Temperature 98.1 F 97.6 F Pulse Rate 90 74 88 Respiratory Rate 20 18 27 H Blood Pressure 147/87 H 154/86 H Pulse Oximetry 98 99 11/02/17 20:00 11/02/17 20:58 11/03/17 00:00 Temperature 97.7 F 97.6 F Pulse Rate 76 78 77 Respiratory Rate 15 24 27 H Blood Pressure 146/74 H 134/76 Pulse Oximetry 94 L 98 96 11/03/17 03:11 11/03/17 04:00 Temperature 98 F Pulse Rate 84 84 Respiratory Rate 16 14 Blood Pressure 134/70 Pulse Oximetry 94 L Intake & Output 11/02/17 11/03/17 11/03/17 18:59 06:59 18:59 Intake Total 925 / 925 200 / 200 Output Total 900 / 900 800 / 800 Balance 25 / 25 -600 / -600 Weight 101.7 kg Intake: IV 100 / 100 200 / 200 Maxipime Inj 1,000 MG In NS Inj 100 / 100 200 / 200 100 ML @ 200 mls/hr IV.SIG Q8H [facility] Rx#:[id number] Oral 825 / 825 Output: Urine Amount (Catheter) 900 / 900 800 / 800 Indwelling Urethral Catheter 900 / 900 800 / 800 Other: Date of Last Bowel Movement 11/01/17 11/01/17 # Bowel Movements 0 - Constitutional no acute distress - Routine HEENT Exam Head: Present: normocephalic - Routine Neck Exam Absent: JVD - Routine Respiratory Exam Present: diminished air movement. Absent: accessory muscle use - Routine Cardiovascular Exam Present: RRR. Absent: murmur - Routine Extremities Exam Absent: edema - Urinary Catheter Management Indwelling Urethral Catheter Cath placed during this visit: yes Reason for continuing: Hourly intake/output Insertion date: 11/01/17 Insertion time: 06:45 Results - Labs CBC & Chem 7: 11/02/17 04:50 11/02/17 04:50 - Imaging Impressions Chest X-Ray 11/03/17 00:00 CONCLUSION: Cardiomegaly with increase in pulmonary vascularity and left basilar density Assessment and Plan - Assessment (1) Pericardial effusion Code(s): I31.3 - Pericardial effusion (noninflammatory) Status: Acute Plan: Though effusion did seem to show some hemodynamic compromise by echo, the overall volume wasn't particularly high and pt looks fairly stable, able to lie flat (though on O2). Clinically doesn't appear like tamponade Plan is to hold plavix, will repeat echo late today to see if any change to effusion, question will be whether to place drain or do a window as the location is somewhat challenging. (2) COPD with acute exacerbation Code(s): J44.1 - Chronic obstructive pulmonary disease with (acute) exacerbation Status: Acute (3) Respiratory failure Code(s): J96.90 - Respiratory failure, unspecified, unspecified whether with hypoxia or hypercapnia Status: Acute - Plan atypical chest pain; will get ekg/trop, depending on echo, may get a nuc stress prior to d/c
[2017-11-03] MEDS: Aspirin 325 MG Tablet PO SCH (09:01)
[2017-11-03] MEDS: Fenofibrate 145 MG Tablet PO SCH (09:01)
[2017-11-03] MEDS: amLODIPine 10 MG Tablet PO SCH (09:02)
[2017-11-03] MEDS: Lisinopril 20 MG Tablet PO SCH (09:02)
[2017-11-03] MEDS: Gabapentin 300 MG Capsule PO SCH ×3 (09:02→18:08)
[2017-11-03] MEDS: levETIRAcetam 500 MG Tablet PO SCH ×2 (11:13→22:42)
--- NOTE | 2017-11-03 11:15 | P.PNIM ---
Subjective Interval history: f/u; copd exacerbation/ pericardial effusion resting comfortably. says that her sob is better. had some chest pain last night which has already resolved. Physical Exam Vital signs: Vital Signs 11/02/17 12:00 11/02/17 15:38 11/02/17 16:00 Temperature 98.1 F 97.6 F Pulse Rate 90 74 88 Respiratory Rate 20 18 27 H Blood Pressure 147/87 H 154/86 H Pulse Oximetry 98 99 11/02/17 20:00 11/02/17 20:58 11/03/17 00:00 Temperature 97.7 F 97.6 F Pulse Rate 76 78 77 Respiratory Rate 15 24 27 H Blood Pressure 146/74 H 134/76 Pulse Oximetry 94 L 98 96 11/03/17 03:11 11/03/17 04:00 11/03/17 08:00 Temperature 98 F 98.1 F Pulse Rate 84 84 81 Respiratory Rate 16 14 22 Blood Pressure 134/70 144/73 H Pulse Oximetry 94 L 94 L 11/03/17 08:22 11/03/17 09:00 Temperature Pulse Rate 79 78 Respiratory Rate 18 Blood Pressure Pulse Oximetry 95 Intake & Output 11/02/17 11/03/17 11/03/17 18:59 06:59 18:59 Intake Total 1440 / 1440 200 / 200 Output Total 900 / 900 800 / 800 Balance 540 / 540 -600 / -600 Weight 101.7 kg Intake: IV 615 / 615 200 / 200 Maxipime Inj 1,000 MG In NS Inj 100 / 100 200 / 200 100 ML @ 200 mls/hr IV.SIG Q8H [facility] Rx#:[id number] Vancomycin Inj 1,500 MG In NS 515 / 515 Inj 500 ML @ 250 mls/hr IV.SIG Q24H [facility] Rx#:[id number] Oral 825 / 825 Output: Urine Amount (Catheter) 900 / 900 800 / 800 Indwelling Urethral Catheter 900 / 900 800 / 800 Other: Date of Last Bowel Movement 11/01/17 11/01/17 11/01/17 # Bowel Movements 0 - Constitutional no acute distress - Routine Respiratory Exam Present: CTA bilaterally - Routine Cardiovascular Exam Present: RRR - Routine Abdominal Exam Present: soft - Routine Extremities Exam Comments: no pedal edema. - Routine Neurological Exam Present: alert, oriented X3 - Urinary Catheter Management Indwelling Urethral Catheter Cath placed during this visit: yes Reason for continuing: Hourly intake/output Insertion date: 11/01/17 Insertion time: 06:45 Results - Labs CBC & Chem 7: 11/02/17 04:50 11/02/17 04:50 - Imaging Impressions Chest X-Ray 11/03/17 00:00 CONCLUSION: Cardiomegaly with increase in pulmonary vascularity and left basilar density Assessment and Plan - Assessment (1) Respiratory failure Code(s): J96.90 - Respiratory failure, unspecified, unspecified whether with hypoxia or hypercapnia Status: Acute Plan: Patient on home O2 Continue treating pneumonia and COPD exacerbation on chronic consult pending Follow-up VQ scan given patient's d-dimer of 2, this may just be inflammatory with her pneumonia BiPAP as needed Follow-up echocardiogram as EKG reviewed by me does show some right-sided heart failure (2) CVA (cerebral vascular accident) Code(s): I63.9 - Cerebral infarction, unspecified Status: Acute Plan: Patient on Plavix and aspirin Currently blood pressure is controlled Continue with current management plan and follow while on steroids (3) HTN (hypertension) Code(s): I10 - Essential (primary) hypertension Status: Acute Plan: Currently controlled on amlodipine and hydrochlorothiazide and lisinopril No new events (4) COPD with acute exacerbation Code(s): J44.1 - Chronic obstructive pulmonary disease with (acute) exacerbation Status: Acute (5) Pneumonia Code(s): J18.9 - Pneumonia, unspecified organism Status: Acute Plan: Worrisome for healthcare associated as patient has just been discharged from [facility] within the week. We will continue with cefepime and vancomycin for now follow-up with sputum - Plan acute on chronic hypoxemic respiratory failure Patient on home O2 Continue treating pneumonia and COPD exacerbation with antibiotics, neb treatments and IV steroids- BiPAP as needed V/Q scan with low probability for PE. pulmonary consult appreciated. pericardial effusion cardiology consulted; echo today pending. chest pain will check troponin and EKG- will consider stress test prior to discharge. CVA (cerebral vascular accident) Patient on Plavix and aspirin Continue with current management plan HTN (hypertension) on amlodipine and hydrochlorothiazide and lisinopril No new events Pneumonia Worrisome for healthcare associated as patient has just been discharged from [facility] rehab within the week. We will continue with cefepime and vancomycin for now follow-up with sputum culture. Code Status: she has decided to proceed with "full- code" status. Discharge Planning: when stable and cleared by cardiology/ pulmonary.
[2017-11-03] MEDS: Vancomycin Inj 1,500 MG in Sodium Chlor 0.9% Inj 500 ML IV.SIG SCH (11:56)
--- NOTE | 2017-11-03 13:49 | MB ---
cc: Jonathan Duff MD DATE: 11/02/2017 REASON FOR CONSULTATION: COPD and respiratory distress. HISTORY OF PRESENT ILLNESS: This is a 72-year-old female with a past history of COPD who has been admitted to the hospital with a history of shortness of breath, wheezing and cough with expectoration. The patient recently was in rehab following an acute care admission for her COPD and has been on home oxygen at 2 liters. She has been having trouble ambulating and had falls at home. Upon arrival in the ER, a chest x-ray showed a left lung infiltrate and she was started on antibiotic therapy and also placed on BiPAP and placed in the intensive care unit. Since admission, her condition has improved and now she is on a nasal cannula at 3 liters and maintaining saturations of 95%. She is alert, cooperative and in no acute distress. She still has some wheezing and congestion and brings up whitish-yellow mucus, but no fevers or chills and no hemoptysis. PAST MEDICAL HISTORY: Includes a history of hypertension, history of COPD, history of CVA, history of hysterectomy and she has had myocardial infarct and has had hiatal hernia. PAST SURGICAL HISTORY: Includes appendectomy, breast reduction surgery, cholecystectomy and coronary artery stents. HABITS: The patient smoked 1-2 packs per day for over 45 years and quit recently. No significant alcohol use. ALLERGIES: NO KNOWN DRUG ALLERGIES ARE LISTED. MEDICATIONS: List included DuoNeb solution q.i.d. She is presently on vancomycin and cefepime IV for pneumonia and Solu-Medrol 60 mg q.6. FAMILY HISTORY: Noncontributory. REVIEW OF SYSTEMS: The patient is overweight. She has trouble ambulating. She has arthritis. She has leg swelling. She has dizzy attacks and has urinary frequency. The other system review is negative. The patient does have chronic back pain and sciatica. PHYSICAL EXAMINATION: GENERAL: This is an obese, elderly lady. Her face is plethoric. VITAL SIGNS: Her blood pressure is 140/70, pulse is 88, respirations 20, temperature 98.5. HEENT: Head is normocephalic. Pupils reactive. Sclerae are injected. Tongue is moist. Throat is injected. NECK: Supple with minimal venous distention. Trachea midline. No thyroid enlargement. CHEST: Distant breath sounds with expiratory wheezes bilaterally, prolonged expirations. HEART: Sounds are irregular. S1 and S2 with no murmurs or S3. ABDOMEN: Obese and protuberant without organomegaly or tenderness. Bowel sounds are active. EXTREMITIES: Varicosities and minimal edema with decreased peripheral pulses. NEUROLOGIC: She is moving all her extremities well with 1+ reflexes and no gross motor deficits. SKIN: No lesions observed. IMPRESSION: 1. Acute on chronic respiratory failure, resolving. 2. Cerebrovascular accident. 3. History of hypertension. 4. Severe chronic obstructive pulmonary disease with acute exacerbation. 5. Left basilar pneumonia. PLAN: The patient will be maintained on antibiotic coverage as started and includes vancomycin and cefepime. Solu-Medrol will be tapered down to 40 mg IV q.6 hours. O2 will be weaned down to 2.5 liters nasal cannula. BiPAP used at night at 12/5 cm and 28% FiO2. The patient will use incentive spirometry q.i.d. A chest x-ray to be repeated and Symbicort 160/4.5 mcg 2 puffs twice daily added. The patient will be placed in the chair and physical therapy started and pain control for chronic back pain. I will review and follow the case with you, Dr. Ramirez. Thank you for this consultation. Jonathan Duff MD VJD/tamica , 01:06 PM , 01:17 PM
--- NOTE | 2017-11-03 13:54 | ECG ---
Date Performed: 11/03/2017 Time Performed: 11:43:40 PTAGE: 72 years EKG: Sinus rhythm INFERIOR MYOCARDIAL INFARCTION , PROBABLY OLD WITH POSTERIOR EXTENSION ABNORMAL ECG PREVIOUS TRACING : 11/01/2017 06.49 No significant change from previous tracing noted. DOCTOR: Henok Rajan Interpretating Date/Time 11/03/2017 13:54:06
--- NOTE | 2017-11-03 18:02 | ECHRPT ---
Indication: TAMPONADE CONCLUSIONS Normal left ventricular size and wall thickness. The left ventricular systolic function is normal wi th an estimated ejection fraction in the range of 60-65%. Normal wall motion. Moderate to large circumferential pericardial effusion with some echocardiographic evidence for tamp onade physiology. Specifically, there does appear to be greater than 25% variation in mitral and tricuspi d valve E wave velocities, and right atrial invagination approaching 2/3 of the cardiac cycle. No definite ri ght ventricular diastolic collapse is evident. BP: / HR: Rhythm: Technical Quality: FINDINGS LEFT VENTRICLE Normal left ventricular size and wall thickness. The left ventricular systolic function is normal wi th an estimated ejection fraction in the range of 60-65%. Normal wall motion. RIGHT VENTRICLE Normal right ventricular size and systolic function. LEFT ATRIUM The left atrial size is normal. RIGHT ATRIUM The right atrial size is normal. ATRIAL SEPTUM Normal atrial septal thickness without atrial level shunting by limited color doppler interrogation. AORTA The aortic root and proximal ascending aorta are normal in size on limited imaging. MITRAL VALVE Structurally normal mitral valve. No mitral valve stenosis or regurgitation. AORTIC VALVE Trileaflet aortic valve. No aortic valve stenosis or regurgitation. TRICUSPID VALVE Structurally normal tricuspid valve. No tricuspid valve stenosis or regurgitation. PULMONARY VALVE The pulmonary valve is not well visualized. VESSELS The inferior vena cava is normal in size. PERICARDIUM Moderate to large circumferential pericardial effusion with some echocardiographic evidence for tamp onade physiology. Specifically, there does appear to be greater than 25% variation in mitral and tricuspi d valve E wave velocities, and right atrial invagination approaching 2/3 of the cardiac cycle. No definite ri ght ventricular diastolic collapse is evident. Henok Rajan MD (Electronically Signed) Final Date:03 November 2017 18:01
--- NOTE | 2017-11-03 19:42 | P.PN ---
Subjective Interval history: C/O some cough and wheezing. No chest pains. Had Echo done today. O2 sat 96 on N/C 3 L Physical Exam Vital signs: Vital Signs 11/02/17 20:00 11/02/17 20:58 11/03/17 00:00 Temperature 97.7 F 97.6 F Pulse Rate 76 78 77 Respiratory Rate 15 24 27 H Blood Pressure 146/74 H 134/76 Pulse Oximetry 94 L 98 96 11/03/17 03:11 11/03/17 04:00 11/03/17 08:00 Temperature 98 F 98.1 F Pulse Rate 84 84 81 Respiratory Rate 16 14 22 Blood Pressure 134/70 144/73 H Pulse Oximetry 94 L 94 L 11/03/17 08:22 11/03/17 09:00 11/03/17 12:00 Temperature 97.5 F L Pulse Rate 79 78 77 Respiratory Rate 18 14 Blood Pressure 147/73 H Pulse Oximetry 95 94 L 11/03/17 16:00 11/03/17 16:25 Temperature 97.8 F Pulse Rate 78 75 Respiratory Rate 14 16 Blood Pressure 126/65 Pulse Oximetry 94 L Intake & Output 11/03/17 11/03/17 11/04/17 06:59 18:59 06:59 Intake Total 200 / 200 1615 / 1615 Output Total 800 / 800 300 / 300 Balance -600 / -600 1315 / 1315 Weight 101.7 kg Intake: IV 200 / 200 615 / 615 Maxipime Inj 1,000 MG In NS Inj 200 / 200 100 / 100 100 ML @ 200 mls/hr IV.SIG Q8H INDIGO Rx#:[id number] Vancomycin Inj 1,500 MG In NS 515 / 515 Inj 500 ML @ 250 mls/hr IV.SIG Q24H INDIGO Rx#:[id number] Oral 1000 / 1000 Output: Urine Amount (Catheter) 800 / 800 300 / 300 Indwelling Urethral Catheter 800 / 800 300 / 300 Other: Date of Last Bowel Movement 11/01/17 11/01/17 # Bowel Movements 0 0 GENERAL: Obese elderly W/F alert and oriented SKIN: Warm and dry. HEAD: Atraumatic. Normocephalic. EYES: Pupils equal and round. No scleral icterus. No injection or drainage. ENT: No nasal bleeding or discharge. Mucous membranes pink and moist. NECK: Trachea midline. No JVD. CARDIOVASCULAR: Regular rate and rhythm. RESPIRATORY: Bilateral wheezes and Occ basal crackles. Breath sounds equal bilaterally. GASTROINTESTINAL: Abdomen soft, non-tender, nondistended. Hepatic and splenic margins not palpable. MUSCULOSKELETAL: Extremities without clubbing, cyanosis, or edema. No obvious deformities. NEUROLOGICAL: Awake and alert. No obvious cranial nerve deficits. Motor grossly within normal limits. Five out of 5 muscle strength in the arms and legs. Normal speech. PSYCHIATRIC: Appropriate mood and affect; insight and judgment normal. - Urinary Catheter Management Indwelling Urethral Catheter Cath placed during this visit: yes Reason for continuing: Hourly intake/output Insertion date: 11/01/17 Insertion time: 06:45 Results - Labs CBC & Chem 7: 11/02/17 04:50 11/02/17 04:50 Laboratory Results - last 24 hr 11/03/17 12:52 Troponin I Less than 0.02 L - Imaging Impressions Chest X-Ray 11/03/17 00:00 CONCLUSION: Cardiomegaly with increase in pulmonary vascularity and left basilar density Assessment and Plan - Assessment (1) COPD with acute exacerbation Code(s): J44.1 - Chronic obstructive pulmonary disease with (acute) exacerbation Status: Acute (2) Pneumonia Code(s): J18.9 - Pneumonia, unspecified organism Status: Acute (3) Respiratory failure Code(s): J96.90 - Respiratory failure, unspecified, unspecified whether with hypoxia or hypercapnia Status: Acute (4) CVA (cerebral vascular accident) Code(s): I63.9 - Cerebral infarction, unspecified Status: Acute (5) HTN (hypertension) Code(s): I10 - Essential (primary) hypertension Status: Acute (6) Pericardial effusion Code(s): I31.3 - Pericardial effusion (noninflammatory) Status: Acute - Plan 1. Taper solumedrol to 40 mg IV q8H. 2. Cardiac Evaluation 3. Nebs qid , duoneb. 4. O2 at 3 L. 5. BiPAP at HS 12/5 cm FIo2 30 % if sats ,90 6. CBC,BMP in am 7. Symbicort 160/4.5 mcg , 2 puffs BID 8. PFT when stable.
[2017-11-04] MEDS: oxyCODONE/Acetaminophen 10/325 Tablet PO PRN ×4 (02:20→17:49)
[2017-11-04] MEDS: MethylPREDNISolone Sod Succinate Inj 40 MG/ML Vial IV.PUSH SCH ×2 (06:30→20:34)
[2017-11-04] MEDS: Aspirin 325 MG Tablet PO SCH (08:21)
[2017-11-04] MEDS: amLODIPine 10 MG Tablet PO SCH (08:21)
[2017-11-04] MEDS: Gabapentin 300 MG Capsule PO SCH ×3 (08:21→17:48)
[2017-11-04] MEDS: Lisinopril 20 MG Tablet PO SCH (08:21)
[2017-11-04] MEDS: Fenofibrate 145 MG Tablet PO SCH (08:24)
--- NOTE | 2017-11-04 10:38 | P.PNIM ---
Subjective Interval history: f/u; pericardial effusion in no acute distress. overall clinically improving and feeling better. no chest pain today. d/w the RN. Physical Exam Vital signs: Vital Signs 11/03/17 12:00 11/03/17 16:00 11/03/17 16:25 Temperature 97.5 F L 97.8 F Pulse Rate 77 78 75 Respiratory Rate 14 14 16 Blood Pressure 147/73 H 126/65 Pulse Oximetry 94 L 94 L 11/03/17 20:00 11/03/17 20:57 11/03/17 21:10 Temperature 97.4 F L Pulse Rate 75 75 Respiratory Rate 12 16 Blood Pressure 142/80 H Pulse Oximetry 95 92 L 93 L 11/04/17 00:00 11/04/17 03:31 11/04/17 04:00 Temperature 97 F L Pulse Rate 79 78 79 Respiratory Rate 15 16 17 Blood Pressure 121/69 128/51 L Pulse Oximetry 92 L 97 11/04/17 10:09 Temperature Pulse Rate 80 Respiratory Rate 20 Blood Pressure Pulse Oximetry 95 Intake & Output 11/03/17 11/04/17 11/04/17 18:59 06:59 18:59 Intake Total 1615 / 1615 200 / 200 Output Total 300 / 300 1000 / 1000 Balance 1315 / 1315 -800 / -800 Weight 104 kg Intake: IV 615 / 615 200 / 200 Maxipime Inj 1,000 MG In NS Inj 100 / 100 200 / 200 100 ML @ 200 mls/hr IV.SIG Q8H INDIGO Rx#:[id number] Vancomycin Inj 1,500 MG In NS 515 / 515 Inj 500 ML @ 250 mls/hr IV.SIG Q24H INDIGO Rx#:[id number] Oral 1000 / 1000 Output: Urine 1000 / 1000 Urine Amount (Catheter) 300 / 300 Indwelling Urethral Catheter 300 / 300 Other: Date of Last Bowel Movement 11/01/17 11/01/17 # Bowel Movements 0 - Constitutional no acute distress - Routine Respiratory Exam Present: CTA bilaterally - Routine Cardiovascular Exam Present: RRR - Routine Abdominal Exam Present: soft - Routine Extremities Exam Comments: no pedal edema. - Routine Neurological Exam Present: alert, oriented X3 - Urinary Catheter Management Indwelling Urethral Catheter Cath placed during this visit: yes Reason for continuing: Hourly intake/output Insertion date: 11/01/17 Insertion time: 06:45 Results - Labs CBC & Chem 7: 11/02/17 04:50 11/04/17 03:53 Laboratory Results - last 24 hr 11/03/17 11/04/17 12:52 03:53 Creatinine 1.16 H Estimated GFR 46 L Troponin I Less than 0.02 L Assessment and Plan - Assessment (1) Respiratory failure Code(s): J96.90 - Respiratory failure, unspecified, unspecified whether with hypoxia or hypercapnia Status: Acute Plan: Patient on home O2 Continue treating pneumonia and COPD exacerbation on chronic consult pending Follow-up VQ scan given patient's d-dimer of 2, this may just be inflammatory with her pneumonia BiPAP as needed Follow-up echocardiogram as EKG reviewed by me does show some right-sided heart failure (2) CVA (cerebral vascular accident) Code(s): I63.9 - Cerebral infarction, unspecified Status: Acute Plan: Patient on Plavix and aspirin Currently blood pressure is controlled Continue with current management plan and follow while on steroids (3) HTN (hypertension) Code(s): I10 - Essential (primary) hypertension Status: Acute Plan: Currently controlled on amlodipine and hydrochlorothiazide and lisinopril No new events (4) COPD with acute exacerbation Code(s): J44.1 - Chronic obstructive pulmonary disease with (acute) exacerbation Status: Acute (5) Pneumonia Code(s): J18.9 - Pneumonia, unspecified organism Status: Acute Plan: Worrisome for healthcare associated as patient has just been discharged from [facility] rehab within the week. We will continue with cefepime and vancomycin for now follow-up with sputum - Plan acute on chronic hypoxemic respiratory failure- improving. Patient on home O2 Continue treating pneumonia and COPD exacerbation with antibiotics, neb treatments and IV steroids- BiPAP as needed V/Q scan with low probability for PE. pulmonary consult appreciated. pericardial effusion awaiting cardiology follow-up/ recommendations. chest pain-resolved troponin negative.cardiology following. CVA (cerebral vascular accident) Patient on Plavix and aspirin Continue with current management plan HTN (hypertension) on amlodipine and hydrochlorothiazide and lisinopril No new events Pneumonia Worrisome for healthcare associated as patient has just been discharged from [facility] rehab within the week. We will continue with cefepime and vancomycin for now- will deescalate the antibiotic regimen within the next 24 hrs. Discharge Planning: when stable and cleared by cardiology/ pulmonary.
[2017-11-04] MEDS ORDERED: Pharmacy Ordered Lab Info OTHER ONE (11:45)
[2017-11-04] MEDS: ALPRAZolam 0.5 MG Tablet PO PRN (11:50)
[2017-11-04] MEDS: levETIRAcetam 500 MG Tablet PO SCH ×2 (11:50→22:25)
[2017-11-04] MEDS: Vancomycin Inj 1,500 MG in Sodium Chlor 0.9% Inj 500 ML IV.SIG SCH (13:17)
--- NOTE | 2017-11-04 18:55 | P.PN ---
Subjective Interval history: Up in a chair and feels better. No fever and has some wheezing. CXR is stable. Physical Exam Vital signs: Vital Signs 11/03/17 20:00 11/03/17 20:57 11/03/17 21:10 Temperature 97.4 F L Pulse Rate 75 75 Respiratory Rate 12 16 Blood Pressure 142/80 H Pulse Oximetry 95 92 L 93 L 11/04/17 00:00 11/04/17 03:31 11/04/17 04:00 Temperature 97 F L Pulse Rate 79 78 79 Respiratory Rate 15 16 17 Blood Pressure 121/69 128/51 L Pulse Oximetry 92 L 97 11/04/17 08:00 11/04/17 08:45 11/04/17 10:00 Temperature 97.8 F Pulse Rate 74 70 Respiratory Rate 15 15 Blood Pressure 165/86 H Pulse Oximetry 94 L 11/04/17 10:09 11/04/17 12:00 11/04/17 14:00 Temperature 97.8 F Pulse Rate 80 68 75 Respiratory Rate 20 13 Blood Pressure 151/79 H Pulse Oximetry 95 91 L 11/04/17 15:35 11/04/17 16:00 11/04/17 18:00 Temperature 98.3 F Pulse Rate 79 70 70 Respiratory Rate 17 12 Blood Pressure 127/71 Pulse Oximetry 96 Intake & Output 11/03/17 11/04/17 11/04/17 18:59 06:59 18:59 Intake Total 1615 / 1615 200 / 200 615 / 615 Output Total 300 / 300 1000 / 1000 Balance 1315 / 1315 -800 / -800 615 / 615 Weight 104 kg Intake: IV 615 / 615 200 / 200 615 / 615 Maxipime Inj 1,000 MG In NS Inj 100 / 100 200 / 200 100 / 100 100 ML @ 200 mls/hr IV.SIG Q8H INDIGO Rx#:[id number] Vancomycin Inj 1,500 MG In NS 515 / 515 515 / 515 Inj 500 ML @ 250 mls/hr IV.SIG Q24H INDIGO Rx#:[id number] Oral 1000 / 1000 Output: Urine 1000 / 1000 Urine Amount (Catheter) 300 / 300 Indwelling Urethral Catheter 300 / 300 Other: Date of Last Bowel Movement 11/01/17 11/01/17 11/01/17 # Bowel Movements 0 GENERAL: Elderly W/F obese and alert, no distress SKIN: Warm and dry. HEAD: Atraumatic. Normocephalic. EYES: Pupils equal and round. No scleral icterus. No injection or drainage. ENT: No nasal bleeding or discharge. Mucous membranes pink and moist. NECK: Trachea midline. No JVD. CARDIOVASCULAR: Regular rate and rhythm. RESPIRATORY: No accessory muscle use. Few basal crackles. Breath sounds equal bilaterally. GASTROINTESTINAL: Abdomen soft, non-tender, nondistended. Hepatic and splenic margins not palpable. MUSCULOSKELETAL: Extremities without clubbing, cyanosis, but has 1 + edema. No obvious deformities. NEUROLOGICAL: Awake and alert. No obvious cranial nerve deficits. Motor grossly within normal limits. Normal speech. PSYCHIATRIC: Appropriate mood and affect; insight and judgment normal. - Urinary Catheter Management Indwelling Urethral Catheter Cath placed during this visit: yes Reason for continuing: Hourly intake/output Insertion date: 11/01/17 Insertion time: 06:45 Results - Labs CBC & Chem 7: 11/02/17 04:50 11/04/17 03:53 Laboratory Results - last 24 hr 11/04/17 11/04/17 03:53 11:55 Creatinine 1.16 H Estimated GFR 46 L Vancomycin Trough 11.1 H Assessment and Plan - Assessment (1) COPD with acute exacerbation Code(s): J44.1 - Chronic obstructive pulmonary disease with (acute) exacerbation Status: Acute (2) Pneumonia Code(s): J18.9 - Pneumonia, unspecified organism Status: Acute (3) Respiratory failure Code(s): J96.90 - Respiratory failure, unspecified, unspecified whether with hypoxia or hypercapnia Status: Acute (4) CVA (cerebral vascular accident) Code(s): I63.9 - Cerebral infarction, unspecified Status: Acute (5) HTN (hypertension) Code(s): I10 - Essential (primary) hypertension Status: Acute (6) Pericardial effusion Code(s): I31.3 - Pericardial effusion (noninflammatory) Status: Acute - Plan 1. Taper solumedrol to 40 mg IV q12H. 2. Cardiac Evaluation, 2 D Echo 3. Nebs qid , duoneb. 4. O2 at 3 L. 5. BiPAP at HS 12/5 cm FIo2 30 % if sats <89 6. CBC CXR ,BMP in am 7. Symbicort 160/4.5 mcg , 2 puffs BID 8. Continue cefipime 2 G IV BID
--- NOTE | 2017-11-04 21:26 | P.PNCA ---
Subjective Interval history: No events overnight No chest pain Sitting in the chair, hemodynamically stable Physical Exam Vital signs: Vital Signs 11/04/17 00:00 11/04/17 03:31 11/04/17 04:00 Temperature 97 F L Pulse Rate 79 78 79 Respiratory Rate 15 16 17 Blood Pressure 121/69 128/51 L Pulse Oximetry 92 L 97 11/04/17 08:00 11/04/17 08:45 11/04/17 10:00 Temperature 97.8 F Pulse Rate 74 70 Respiratory Rate 15 15 Blood Pressure 165/86 H Pulse Oximetry 94 L 11/04/17 10:09 11/04/17 12:00 11/04/17 14:00 Temperature 97.8 F Pulse Rate 80 68 75 Respiratory Rate 20 13 Blood Pressure 151/79 H Pulse Oximetry 95 91 L 11/04/17 15:35 11/04/17 16:00 11/04/17 18:00 Temperature 98.3 F Pulse Rate 79 70 70 Respiratory Rate 17 12 Blood Pressure 127/71 Pulse Oximetry 96 11/04/17 20:00 11/04/17 21:03 Temperature Pulse Rate 66 Respiratory Rate 23 16 Blood Pressure Pulse Oximetry 94 L Intake & Output 11/04/17 11/04/17 11/05/17 06:59 18:59 06:59 Intake Total 200 / 200 1315 / 1315 100 / 100 Output Total 1000 / 1000 800 / 800 Balance -800 / -800 515 / 515 100 / 100 Weight 104 kg Intake: IV 200 / 200 615 / 615 100 / 100 Maxipime Inj 1,000 MG In NS Inj 200 / 200 100 / 100 100 ML @ 200 mls/hr IV.SIG Q8H INDIGO Rx#:[id number] Maxipime Inj 2,000 MG In NS Inj 100 / 100 100 ML @ 200 mls/hr IV.SIG Q24H INDIGO Rx#:[id number] Vancomycin Inj 1,500 MG In NS 515 / 515 Inj 500 ML @ 250 mls/hr IV.SIG Q24H INDIGO Rx#:[id number] Oral 700 / 700 Output: Urine 1000 / 1000 Urine Amount (Catheter) 800 / 800 Indwelling Urethral Catheter 800 / 800 Other: # Voids 2 Date of Last Bowel Movement 11/01/17 11/01/17 # Bowel Movements 0 Narrative: GENERAL: NAD, AAOx3 SKIN: Warm and dry. HEAD: Atraumatic. Normocephalic. EYES: Pupils equal and round. No scleral icterus. No injection or drainage. ENT: No nasal bleeding or discharge. Mucous membranes pink and moist. NECK: Trachea midline. No JVD. CARDIOVASCULAR: Regular rate and rhythm. Distant heart sounds RESPIRATORY: No accessory muscle use. Clear to auscultation. Breath sounds equal bilaterally. GASTROINTESTINAL: Abdomen soft, non-tender, nondistended. Hepatic and splenic margins not palpable. MUSCULOSKELETAL: Extremities without clubbing, cyanosis, or edema. No obvious deformities. NEUROLOGICAL: Awake and alert. No obvious cranial nerve deficits. Motor grossly within normal limits. Five out of 5 muscle strength in the arms and legs. Normal speech. PSYCHIATRIC: Appropriate mood and affect; insight and judgment normal. - Urinary Catheter Management Indwelling Urethral Catheter Cath placed during this visit: yes Reason for continuing: Hourly intake/output Insertion date: 11/01/17 Insertion time: 06:45 Assessment and Plan - Assessment (1) Pericardial effusion Code(s): I31.3 - Pericardial effusion (noninflammatory) Status: Acute (2) COPD with acute exacerbation Code(s): J44.1 - Chronic obstructive pulmonary disease with (acute) exacerbation Status: Acute (3) Respiratory failure Code(s): J96.90 - Respiratory failure, unspecified, unspecified whether with hypoxia or hypercapnia Status: Acute - Plan 1) Pericardial effusion Reviewed repeat echo Moderate to large pericardial effusion, no change from previous Appears to be circumferential, but portion is posterior Still with intraventricular dependence, but no RV collapse IVC now dilated Clinically no tamponade at this time 2) Most likely will need to have it drained if possible, as not decreasing in size and having some components of pre-tamponade physiology on echo Con't to hold Plavix Will reevaluate over next 24-48 hours Last Plavix dose was believed to be on 11/01
[2017-11-05] MEDS: oxyCODONE/Acetaminophen 10/325 Tablet PO PRN ×5 (01:05→22:09)
[2017-11-05] MEDS: Fenofibrate 145 MG Tablet PO SCH (08:18)
[2017-11-05] MEDS: amLODIPine 10 MG Tablet PO SCH (08:18)
[2017-11-05] MEDS: Aspirin 325 MG Tablet PO SCH (08:18)
[2017-11-05] MEDS: Lisinopril 20 MG Tablet PO SCH (08:19)
[2017-11-05] MEDS: Gabapentin 300 MG Capsule PO SCH ×3 (08:19→17:07)
[2017-11-05] MEDS: MethylPREDNISolone Sod Succinate Inj 40 MG/ML Vial IV.PUSH SCH (08:20)
[2017-11-05] MEDS: levETIRAcetam 500 MG Tablet PO SCH ×2 (10:58→22:09)
[2017-11-05] MEDS: Vancomycin Inj 2,000 MG in Sodium Chlor 0.9% Inj 500 ML IV.SIG SCH (11:01)
--- NOTE | 2017-11-05 11:19 | P.PNIM ---
Subjective Interval history: f/u; pericardial effusion in no acute distress. no chest pain or sob. d/w the RN. Physical Exam Vital signs: Vital Signs 11/04/17 12:00 11/04/17 14:00 11/04/17 15:35 Temperature 97.8 F Pulse Rate 68 75 79 Respiratory Rate 13 17 Blood Pressure 151/79 H Pulse Oximetry 91 L 11/04/17 16:00 11/04/17 18:00 11/04/17 20:00 Temperature 98.3 F 97.5 F L Pulse Rate 70 70 70 Respiratory Rate 12 19 Blood Pressure 127/71 153/84 H Pulse Oximetry 96 94 L 11/04/17 21:03 11/04/17 22:00 11/05/17 00:00 Temperature Pulse Rate 66 70 68 Respiratory Rate 16 23 Blood Pressure 136/77 Pulse Oximetry 94 L 95 11/05/17 02:00 11/05/17 03:24 11/05/17 04:00 Temperature 97.9 F Pulse Rate 68 82 68 Respiratory Rate 18 14 Blood Pressure 145/82 H Pulse Oximetry 96 11/05/17 06:00 11/05/17 07:56 11/05/17 08:00 Temperature 97.8 F Pulse Rate 72 71 69 Respiratory Rate 18 21 Blood Pressure 153/97 H Pulse Oximetry 98 11/05/17 10:00 Temperature Pulse Rate 82 Respiratory Rate Blood Pressure Pulse Oximetry Intake & Output 11/04/17 11/05/17 11/05/17 18:59 06:59 18:59 Intake Total 1315 / 1315 340 / 340 Output Total 800 / 800 Balance 515 / 515 340 / 340 Weight 104.9 kg Intake: IV 615 / 615 100 / 100 Maxipime Inj 1,000 MG In NS Inj 100 / 100 100 ML @ 200 mls/hr IV.SIG Q8H INDIGO Rx#:[id number] Maxipime Inj 2,000 MG In NS Inj 100 / 100 100 ML @ 200 mls/hr IV.SIG Q24H INDIGO Rx#:[id number] Vancomycin Inj 1,500 MG In NS 515 / 515 Inj 500 ML @ 250 mls/hr IV.SIG Q24H INDIGO Rx#:[id number] Oral 700 / 700 240 / 240 Output: Urine Amount (Catheter) 800 / 800 Indwelling Urethral Catheter 800 / 800 Other: # Voids 2 5 Date of Last Bowel Movement 11/01/17 11/01/17 11/01/17 # Bowel Movements 0 - Constitutional no acute distress - Routine Respiratory Exam Present: CTA bilaterally - Routine Cardiovascular Exam Present: RRR - Routine Abdominal Exam Present: soft - Routine Extremities Exam Comments: no pedal edema. - Routine Neurological Exam Present: alert, oriented X3 - Urinary Catheter Management Indwelling Urethral Catheter Cath placed during this visit: yes Reason for continuing: Hourly intake/output Insertion date: 11/01/17 Insertion time: 06:45 Results - Labs CBC & Chem 7: 11/02/17 04:50 11/04/17 03:53 Laboratory Results - last 24 hr 11/04/17 11:55 Vancomycin Trough 11.1 H Assessment and Plan - Assessment (1) Respiratory failure Code(s): J96.90 - Respiratory failure, unspecified, unspecified whether with hypoxia or hypercapnia Status: Acute Plan: Patient on home O2 Continue treating pneumonia and COPD exacerbation on chronic consult pending Follow-up VQ scan given patient's d-dimer of 2, this may just be inflammatory with her pneumonia BiPAP as needed Follow-up echocardiogram as EKG reviewed by me does show some right-sided heart failure (2) CVA (cerebral vascular accident) Code(s): I63.9 - Cerebral infarction, unspecified Status: Acute Plan: Patient on Plavix and aspirin Currently blood pressure is controlled Continue with current management plan and follow while on steroids (3) HTN (hypertension) Code(s): I10 - Essential (primary) hypertension Status: Acute Plan: Currently controlled on amlodipine and hydrochlorothiazide and lisinopril No new events (4) COPD with acute exacerbation Code(s): J44.1 - Chronic obstructive pulmonary disease with (acute) exacerbation Status: Acute (5) Pneumonia Code(s): J18.9 - Pneumonia, unspecified organism Status: Acute Plan: Worrisome for healthcare associated as patient has just been discharged from [facility] rehab within the week. We will continue with cefepime and vancomycin for now follow-up with sputum - Plan acute on chronic hypoxemic respiratory failure- improving. Patient on home O2 Continue treating pneumonia and COPD exacerbation with antibiotics, neb treatments and IV steroids; IV steroids being tapered off. BiPAP as needed V/Q scan with low probability for PE. pulmonary following. pericardial effusion might need drainage awaiting cardiology follow-up/ recommendations. chest pain-resolved troponin negative.cardiology following. CVA (cerebral vascular accident) Patient on Plavix and aspirin; Plavix is on hold for now for possible procedure. Continue with current management plan HTN (hypertension) on amlodipine and hydrochlorothiazide and lisinopril No new events Pneumonia Worrisome for healthcare associated as patient has just been discharged from [facility] rehab within the week. We will continue with cefepime and vancomycin for now- will deescalate the antibiotic regimen within the next 24 hrs. Discharge Planning: when stable and cleared by cardiology/ pulmonary.
--- NOTE | 2017-11-05 13:02 | ECG ---
Date Performed: 11/04/2017 Time Performed: 11:26:42 PTAGE: 72 years EKG: Sinus rhythm with PAC(s). Inferior infarct - age undetermined Abnormal ECG PREVIOUS TRACING : 11/03/2017 11.43 Since the previous tracing, no significant change noted DOCTOR: Lionel Fleming Interpretating Date/Time 11/05/2017 13:02:11
--- NOTE | 2017-11-05 13:05 | P.PN ---
Subjective Interval history: Pt doing well, no complaints. Physical Exam Vital signs: Vital Signs 11/04/17 14:00 11/04/17 15:35 11/04/17 16:00 Temperature 98.3 F Pulse Rate 75 79 70 Respiratory Rate 17 12 Blood Pressure 127/71 Pulse Oximetry 96 11/04/17 18:00 11/04/17 20:00 11/04/17 21:03 Temperature 97.5 F L Pulse Rate 70 70 66 Respiratory Rate 19 16 Blood Pressure 153/84 H Pulse Oximetry 94 L 94 L 11/04/17 22:00 11/05/17 00:00 11/05/17 02:00 Temperature Pulse Rate 70 68 68 Respiratory Rate 23 Blood Pressure 136/77 Pulse Oximetry 95 11/05/17 03:24 11/05/17 04:00 11/05/17 06:00 Temperature 97.9 F Pulse Rate 82 68 72 Respiratory Rate 18 14 Blood Pressure 145/82 H Pulse Oximetry 96 11/05/17 07:56 11/05/17 08:00 11/05/17 10:00 Temperature 97.8 F Pulse Rate 71 69 82 Respiratory Rate 18 21 Blood Pressure 153/97 H Pulse Oximetry 98 11/05/17 12:00 Temperature 98.0 F Pulse Rate 77 Respiratory Rate 16 Blood Pressure 167/89 H Pulse Oximetry 98 Intake & Output 11/04/17 11/05/17 11/05/17 18:59 06:59 18:59 Intake Total 1315 / 1315 340 / 340 Output Total 800 / 800 Balance 515 / 515 340 / 340 Weight 104.9 kg Intake: IV 615 / 615 100 / 100 Maxipime Inj 1,000 MG In NS Inj 100 / 100 100 ML @ 200 mls/hr IV.SIG Q8H INDIGO Rx#:[id number] Maxipime Inj 2,000 MG In NS Inj 100 / 100 100 ML @ 200 mls/hr IV.SIG Q24H INDIGO Rx#:[id number] Vancomycin Inj 1,500 MG In NS 515 / 515 Inj 500 ML @ 250 mls/hr IV.SIG Q24H INDIGO Rx#:[id number] Oral 700 / 700 240 / 240 Output: Urine Amount (Catheter) 800 / 800 Indwelling Urethral Catheter 800 / 800 Other: # Voids 2 5 Date of Last Bowel Movement 11/01/17 11/01/17 11/01/17 # Bowel Movements 0 - Constitutional no acute distress - Routine HEENT Exam Head: Present: normocephalic Eye: Present: EOMI - Routine Neck Exam Present: JVD - Routine Respiratory Exam Present: decreased breath sounds. Absent: accessory muscle use - Routine Cardiovascular Exam Present: RRR, S2 - Routine Abdominal Exam Present: soft - Routine Extremities Exam Present: edema - Urinary Catheter Management Indwelling Urethral Catheter Cath placed during this visit: yes Reason for continuing: Hourly intake/output Insertion date: 11/01/17 Insertion time: 06:45 Results - Labs CBC & Chem 7: 11/02/17 04:50 11/04/17 03:53 Laboratory Results - last 24 hr 11/04/17 11:55 Vancomycin Trough 11.1 H Assessment and Plan - Assessment (1) Pericardial effusion Code(s): I31.3 - Pericardial effusion (noninflammatory) Status: Acute Plan: Though pt looks fairly well now, she has had multiple presentations of sob recently, by echo effusion is near tamponade levels; plavix has been held all week, believe tomorrow would be a reasonable time for a ct-guided pericardial drain. I discussed with pt and IR. (2) COPD with acute exacerbation Code(s): J44.1 - Chronic obstructive pulmonary disease with (acute) exacerbation Status: Acute (3) Respiratory failure Code(s): J96.90 - Respiratory failure, unspecified, unspecified whether with hypoxia or hypercapnia Status: Acute - Plan atypical chest pain; will get ekg/trop, depending on echo, may get a nuc stress prior to d/c
--- NOTE | 2017-11-05 18:09 | P.PN ---
Subjective Interval history: Up in chair and breathing well. Off O2 sat 95. Less cough and wheezing. Physical Exam Vital signs: Vital Signs 11/04/17 20:00 11/04/17 21:03 11/04/17 22:00 Temperature 97.5 F L Pulse Rate 70 66 70 Respiratory Rate 19 16 Blood Pressure 153/84 H Pulse Oximetry 94 L 94 L 11/05/17 00:00 11/05/17 02:00 11/05/17 03:24 Temperature Pulse Rate 68 68 82 Respiratory Rate 23 18 Blood Pressure 136/77 Pulse Oximetry 95 11/05/17 04:00 11/05/17 06:00 11/05/17 07:56 Temperature 97.9 F Pulse Rate 68 72 71 Respiratory Rate 14 18 Blood Pressure 145/82 H Pulse Oximetry 96 11/05/17 08:00 11/05/17 10:00 11/05/17 12:00 Temperature 97.8 F 98.0 F Pulse Rate 69 82 77 Respiratory Rate 21 16 Blood Pressure 153/97 H 167/89 H Pulse Oximetry 98 98 11/05/17 14:00 11/05/17 16:00 Temperature 98.3 F Pulse Rate 82 63 Respiratory Rate 15 Blood Pressure 160/77 H Pulse Oximetry 97 Intake & Output 11/04/17 11/05/17 11/05/17 18:59 06:59 18:59 Intake Total 1315 / 1315 340 / 340 520 / 520 Output Total 800 / 800 Balance 515 / 515 340 / 340 520 / 520 Weight 104.9 kg Intake: IV 615 / 615 100 / 100 520 / 520 Maxipime Inj 1,000 MG In NS Inj 100 / 100 100 ML @ 200 mls/hr IV.SIG Q8H INDIGO Rx#:[id number] Maxipime Inj 2,000 MG In NS Inj 100 / 100 100 ML @ 200 mls/hr IV.SIG Q24H INDIGO Rx#:[id number] Vancomycin Inj 2,000 MG In NS 515 / 515 520 / 520 Inj 500 ML @ 250 mls/hr IV.SIG Q24H INDIGO Rx#:[id number] Oral 700 / 700 240 / 240 Output: Urine Amount (Catheter) 800 / 800 Indwelling Urethral Catheter 800 / 800 Other: # Voids 2 5 Date of Last Bowel Movement 11/01/17 11/01/17 11/01/17 # Bowel Movements 0 Narrative: GENERAL: NAD, AAOx3 SKIN: Warm and dry. HEAD: Atraumatic. Normocephalic. EYES: Pupils equal and round. No scleral icterus. No injection or drainage. ENT: No nasal bleeding or discharge. Mucous membranes pink and moist. NECK: Trachea midline.Mild JVD. CARDIOVASCULAR: Regular rate and rhythm. Distant heart sounds RESPIRATORY: No accessory muscle use. Bilateral wheeze . Breath sounds equal bilaterally. GASTROINTESTINAL: Abdomen soft, non-tender, nondistended. Hepatic and splenic margins not palpable. MUSCULOSKELETAL: Extremities without clubbing, cyanosis, but has edema. No obvious deformities. NEUROLOGICAL: Awake and alert. No obvious cranial nerve deficits. Motor grossly within normal limits. Normal speech. PSYCHIATRIC: Appropriate mood and affect; insight and judgment normal. - Urinary Catheter Management Indwelling Urethral Catheter Cath placed during this visit: yes Reason for continuing: Hourly intake/output Insertion date: 11/01/17 Insertion time: 06:45 Results - Labs CBC & Chem 7: 11/02/17 04:50 11/04/17 03:53 Assessment and Plan - Assessment (1) COPD with acute exacerbation Code(s): J44.1 - Chronic obstructive pulmonary disease with (acute) exacerbation Status: Acute (2) Pneumonia Code(s): J18.9 - Pneumonia, unspecified organism Status: Acute (3) Respiratory failure Code(s): J96.90 - Respiratory failure, unspecified, unspecified whether with hypoxia or hypercapnia Status: Acute (4) CVA (cerebral vascular accident) Code(s): I63.9 - Cerebral infarction, unspecified Status: Acute (5) HTN (hypertension) Code(s): I10 - Essential (primary) hypertension Status: Acute (6) Pericardial effusion Code(s): I31.3 - Pericardial effusion (noninflammatory) Status: Acute - Plan 1. D/C solumedrol 2. Add Prednisone 10 mg BID 3. Nebs qid , duoneb. 4. O2 at 2 L at HS and PRN. 5. D/C BiPAP 6. CBC ,BMP in am 7. Symbicort 160/4.5 mcg , 2 puffs BID 8. Continue cefipime 2 G IV BID X 2 days
[2017-11-05] MEDS: predniSONE 10 MG Tablet PO SCH (20:12)
[2017-11-06] MEDS: oxyCODONE/Acetaminophen 10/325 Tablet PO PRN ×5 (05:19→22:26)
[2017-11-06] MEDS: amLODIPine 10 MG Tablet PO SCH (08:43)
[2017-11-06] MEDS: predniSONE 10 MG Tablet PO SCH ×2 (08:43→20:00)
[2017-11-06] MEDS: ALPRAZolam 0.5 MG Tablet PO PRN (08:43)
[2017-11-06] MEDS: Fenofibrate 145 MG Tablet PO SCH (08:43)
[2017-11-06] MEDS: Gabapentin 300 MG Capsule PO SCH ×3 (08:46→17:33)
[2017-11-06] MEDS: Lisinopril 20 MG Tablet PO SCH (08:47)
[2017-11-06] MEDS: Aspirin 325 MG Tablet PO SCH (09:20)
--- NOTE | 2017-11-06 10:13 | P.PNCA ---
Subjective Interval history: coughing. no new complaints Physical Exam Vital signs: Vital Signs 11/05/17 12:00 11/05/17 14:00 11/05/17 16:00 Temperature 98.0 F 98.3 F Pulse Rate 77 82 63 Respiratory Rate 16 15 Blood Pressure 167/89 H 160/77 H Pulse Oximetry 98 97 11/05/17 18:00 11/05/17 19:34 11/05/17 20:00 Temperature 97.6 F Pulse Rate 74 79 Respiratory Rate 15 Blood Pressure 166/96 H Pulse Oximetry 96 92 L 11/05/17 22:00 11/06/17 00:00 11/06/17 02:00 Temperature Pulse Rate 63 69 66 Respiratory Rate 19 Blood Pressure 145/76 H Pulse Oximetry 97 11/06/17 04:00 11/06/17 06:00 11/06/17 07:57 Temperature Pulse Rate 62 62 Respiratory Rate 15 Blood Pressure 141/79 H Pulse Oximetry 96 100 11/06/17 08:00 Temperature 97.9 F Pulse Rate 69 Respiratory Rate 15 Blood Pressure 155/70 H Pulse Oximetry 95 Intake & Output 11/05/17 11/06/17 11/06/17 18:59 06:59 18:59 Intake Total 520 / 520 100 / 100 Balance 520 / 520 100 / 100 Weight 104.5 kg Intake: IV 520 / 520 100 / 100 Maxipime Inj 2,000 MG In NS Inj 100 / 100 100 ML @ 200 mls/hr IV.SIG Q24H INDIGO Rx#:[id number] Vancomycin Inj 2,000 MG In NS 520 / 520 Inj 500 ML @ 250 mls/hr IV.SIG Q24H INDIGO Rx#:[id number] Other: # Voids 8 3 # Incontinent Voids 2 Date of Last Bowel Movement 11/01/17 11/05/17 11/01/17 # Bowel Movements 0 1 Narrative: GENERAL: NAD, AAOx3, obese SKIN: Warm and dry. HEAD: Atraumatic. Normocephalic. NECK: Trachea midline.Mild JVD. CARDIOVASCULAR: Regular rate and rhythm. Distant heart sounds RESPIRATORY: No accessory muscle use. Bilateral slight wheeze . Breath sounds equal bilaterally. GASTROINTESTINAL: Abdomen soft, non-tender, MUSCULOSKELETAL: 1+ edema. NEUROLOGICAL: Awake and alert. Normal speech. PSYCHIATRIC: Appropriate mood and affect - Urinary Catheter Management Indwelling Urethral Catheter Cath placed during this visit: yes Reason for continuing: Hourly intake/output Insertion date: 11/01/17 Insertion time: 06:45 Assessment and Plan - Assessment (1) Pericardial effusion Code(s): I31.3 - Pericardial effusion (noninflammatory) Status: Acute (2) COPD with acute exacerbation Code(s): J44.1 - Chronic obstructive pulmonary disease with (acute) exacerbation Status: Acute (3) Respiratory failure Code(s): J96.90 - Respiratory failure, unspecified, unspecified whether with hypoxia or hypercapnia Status: Acute - Plan 1) Pericardial effusion Reviewed repeat echo Moderate to large pericardial effusion, no change from previous Appears to be circumferential, but portion is posterior Still with intraventricular dependence, but no RV collapse IVC now dilated Clinically no tamponade at this time 2) Most likely will need to have it drained if possible, as not decreasing in size and having some components of pre-tamponade physiology on echo Con't to hold Plavix Will reevaluate over next 24-48 hours Last Plavix dose was believed to be on 11/01 11/06 Dr. Chery asked me to F/U Being treated for pneumonia. Pericardiocentesis planned today.
--- NOTE | 2017-11-06 11:07 | P.PNIM ---
Subjective Interval history: f/u; pericardial effusion in no acute distress. no chest pain and sob continues to improve. has urinary frequency with no dysuria. d/w the RN. Physical Exam Vital signs: Vital Signs 11/05/17 12:00 11/05/17 14:00 11/05/17 16:00 Temperature 98.0 F 98.3 F Pulse Rate 77 82 63 Respiratory Rate 16 15 Blood Pressure 167/89 H 160/77 H Pulse Oximetry 98 97 11/05/17 18:00 11/05/17 19:34 11/05/17 20:00 Temperature 97.6 F Pulse Rate 74 79 Respiratory Rate 15 Blood Pressure 166/96 H Pulse Oximetry 96 92 L 11/05/17 22:00 11/06/17 00:00 11/06/17 02:00 Temperature Pulse Rate 63 69 66 Respiratory Rate 19 Blood Pressure 145/76 H Pulse Oximetry 97 11/06/17 04:00 11/06/17 06:00 11/06/17 07:57 Temperature Pulse Rate 62 62 Respiratory Rate 15 Blood Pressure 141/79 H Pulse Oximetry 96 100 11/06/17 08:00 11/06/17 10:00 Temperature 97.9 F Pulse Rate 69 66 Respiratory Rate 15 Blood Pressure 155/70 H Pulse Oximetry 95 Intake & Output 11/05/17 11/06/17 11/06/17 18:59 06:59 18:59 Intake Total 520 / 520 100 / 100 Balance 520 / 520 100 / 100 Weight 104.5 kg Intake: IV 520 / 520 100 / 100 Maxipime Inj 2,000 MG In NS Inj 100 / 100 100 ML @ 200 mls/hr IV.SIG Q24H INDIGO Rx#:[id number] Vancomycin Inj 2,000 MG In NS 520 / 520 Inj 500 ML @ 250 mls/hr IV.SIG Q24H INDIGO Rx#:[id number] Other: # Voids 8 3 # Incontinent Voids 2 Date of Last Bowel Movement 11/01/17 11/05/17 11/01/17 # Bowel Movements 0 1 - Constitutional no acute distress - Routine Respiratory Exam Present: CTA bilaterally - Routine Cardiovascular Exam Present: RRR - Routine Abdominal Exam Present: soft - Routine Extremities Exam Comments: no pedal edema. - Routine Neurological Exam Present: alert, oriented X3 - Urinary Catheter Management Indwelling Urethral Catheter Cath placed during this visit: yes Reason for continuing: Hourly intake/output Insertion date: 11/01/17 Insertion time: 06:45 Results - Labs CBC & Chem 7: 11/02/17 04:50 11/06/17 04:37 Laboratory Results - last 24 hr 11/06/17 04:37 Creatinine 0.86 Estimated GFR 65 L Assessment and Plan - Assessment (1) Respiratory failure Code(s): J96.90 - Respiratory failure, unspecified, unspecified whether with hypoxia or hypercapnia Status: Acute Plan: Patient on home O2 Continue treating pneumonia and COPD exacerbation on chronic consult pending Follow-up VQ scan given patient's d-dimer of 2, this may just be inflammatory with her pneumonia BiPAP as needed Follow-up echocardiogram as EKG reviewed by me does show some right-sided heart failure (2) CVA (cerebral vascular accident) Code(s): I63.9 - Cerebral infarction, unspecified Status: Acute Plan: Patient on Plavix and aspirin Currently blood pressure is controlled Continue with current management plan and follow while on steroids (3) HTN (hypertension) Code(s): I10 - Essential (primary) hypertension Status: Acute Plan: Currently controlled on amlodipine and hydrochlorothiazide and lisinopril No new events (4) COPD with acute exacerbation Code(s): J44.1 - Chronic obstructive pulmonary disease with (acute) exacerbation Status: Acute (5) Pneumonia Code(s): J18.9 - Pneumonia, unspecified organism Status: Acute Plan: Worrisome for healthcare associated as patient has just been discharged from [facility] rehab within the week. We will continue with cefepime and vancomycin for now follow-up with sputum - Plan acute on chronic hypoxemic respiratory failure- improving. Patient on home O2 Continue treating pneumonia and COPD exacerbation with antibiotics, neb treatments. Solumedrol was dc'ed and started on Prednisone. BiPAP as needed V/Q scan with low probability for PE. pulmonary following. pericardial effusion IR consulted for pericardiocentesis- cardiology following. chest pain-resolved troponin negative.cardiology following. CVA (cerebral vascular accident) Patient on Plavix and aspirin; Plavix is on hold for now for procedure. Continue with current management plan HTN (hypertension) on amlodipine and hydrochlorothiazide and lisinopril No new events Pneumonia Worrisome for healthcare associated as patient has just been discharged from [facility] rehab within the week. We will continue with cefepime and vancomycin for now- will deescalate the antibiotic regimen within the next 24 hrs. Discharge Planning: when stable and cleared by cardiology/ pulmonary.
[2017-11-06] MEDS: Vancomycin Inj 2,000 MG in Sodium Chlor 0.9% Inj 500 ML IV.SIG SCH (11:09)
[2017-11-06] MEDS: levETIRAcetam 500 MG Tablet PO SCH ×2 (11:09→22:27)
[2017-11-06] MEDS ORDERED: Lidocaine 1%/Epinephrine 1:100,000 Inj 20 ML Vial ONE (14:16)
[2017-11-06] MEDS ORDERED: fentaNYL Citrate Inj 250 MCG/5 ML Ampul ONE (14:18)
--- NOTE | 2017-11-06 16:20 | CT ---
EXAM DATE: 11/06/2017 3:30 PM EDT AGE/SEX: 72 years / Female INDICATIONS: Pericardial effusion. CLINICAL DATA: This is the patient's initial encounter. Patient reports that signs and symptoms have been present for 1 day and indicates a pain score of 0/10. MEDICAL/SURGICAL HISTORY: Gastroesophageal reflux disease. Chronic obstructive pulmonary disease. None. RADIATION DOSE: 10.42 CTDI (mGy) COMPARISON: No prior exams available for comparison. TECHNIQUE: Multiple contiguous axial images were obtained through the chest without contrast. Image s were obtained in suspended respiration using multiple row detector helical technique. Using automa ron exposure control and adjustment of the mA and/or kV according to patient size, radiation dose was kept as low as reasonably achievable to obtain optimal diagnostic quality images. DICOM format imag e data is available electronically for review and comparison. FINDINGS: There is a small volume of pericardial fluid present. The thickness of the pericardial effusion anter iorly is insufficient for safe access percutaneously. Elsewhere, there are coronary artery and other atherosclerotic calcifications noted. No evidence of m ediastinal adenopathy. CONCLUSION: Small volume pericardial effusion. Electronically signed by: James Llamas MD 11/06/2017 4:19 PM EDT
--- NOTE | 2017-11-06 18:51 | P.PN ---
Subjective Interval history: She is off O2 and No SOB at rest. Will go for Pericardial drain. No chest pain. No fever Physical Exam Vital signs: Vital Signs 11/05/17 19:34 11/05/17 20:00 11/05/17 22:00 Temperature 97.6 F Pulse Rate 79 63 Respiratory Rate 15 Blood Pressure 166/96 H Pulse Oximetry 96 92 L 11/06/17 00:00 11/06/17 02:00 11/06/17 04:00 Temperature Pulse Rate 69 66 62 Respiratory Rate 19 15 Blood Pressure 145/76 H 141/79 H Pulse Oximetry 97 96 11/06/17 06:00 11/06/17 07:57 11/06/17 08:00 Temperature 97.9 F Pulse Rate 62 69 Respiratory Rate 15 Blood Pressure 155/70 H Pulse Oximetry 100 95 11/06/17 10:00 11/06/17 12:00 11/06/17 14:00 Temperature 98.4 F Pulse Rate 66 68 74 Respiratory Rate 14 Blood Pressure 160/88 H Pulse Oximetry 97 11/06/17 16:00 11/06/17 18:00 Temperature 98.5 F Pulse Rate 71 70 Respiratory Rate Blood Pressure 137/64 Pulse Oximetry 98 Intake & Output 11/05/17 11/06/17 11/06/17 18:59 06:59 18:59 Intake Total 520 / 520 100 / 100 720 / 720 Balance 520 / 520 100 / 100 720 / 720 Weight 104.5 kg Intake: IV 520 / 520 100 / 100 520 / 520 Maxipime Inj 2,000 MG In NS Inj 100 / 100 100 ML @ 200 mls/hr IV.SIG Q24H INDIGO Rx#:[id number] Vancomycin Inj 2,000 MG In NS 520 / 520 520 / 520 Inj 500 ML @ 250 mls/hr IV.SIG Q24H INDIGO Rx#:[id number] Oral 200 / 200 Other: # Voids 8 3 7 # Incontinent Voids 2 Date of Last Bowel Movement 11/01/17 11/05/17 11/01/17 # Bowel Movements 0 1 0 Narrative: GENERAL: NAD, AAOx3, obese W/F SKIN: Warm and dry. HEAD: Atraumatic. Normocephalic. NECK: Trachea midline.Mild JVD. CARDIOVASCULAR: Regular rate and rhythm. RESPIRATORY: No accessory muscle use. Bilateral mild wheezing. MUSCULOSKELETAL: 1+ edema. NEUROLOGICAL: Awake and alert. Normal speech. PSYCHIATRIC: Appropriate mood and affect - Urinary Catheter Management Indwelling Urethral Catheter Cath placed during this visit: yes Reason for continuing: Hourly intake/output Insertion date: 11/01/17 Insertion time: 06:45 Results - Labs CBC & Chem 7: 11/02/17 04:50 11/06/17 04:37 Laboratory Results - last 24 hr 11/06/17 04:37 Creatinine 0.86 Estimated GFR 65 L - Imaging Impressions Chest CT 11/06/17 00:00 CONCLUSION: Small volume pericardial effusion. Assessment and Plan - Assessment (1) COPD with acute exacerbation Code(s): J44.1 - Chronic obstructive pulmonary disease with (acute) exacerbation Status: Acute (2) Pneumonia Code(s): J18.9 - Pneumonia, unspecified organism Status: Acute (3) Respiratory failure Code(s): J96.90 - Respiratory failure, unspecified, unspecified whether with hypoxia or hypercapnia Status: Acute (4) CVA (cerebral vascular accident) Code(s): I63.9 - Cerebral infarction, unspecified Status: Acute (5) HTN (hypertension) Code(s): I10 - Essential (primary) hypertension Status: Acute (6) Pericardial effusion Code(s): I31.3 - Pericardial effusion (noninflammatory) Status: Acute - Plan 1. For Pericardiocentesis 2. Cont Prednisone 10 mg BID 3. Nebs tid , duoneb. 4. O2 at 2 L at HS and PRN. 5. Chest Xray in am 6. CBC ,BMP in am 7. Symbicort 160/4.5 mcg , 2 puffs BID
[2017-11-07] MEDS: oxyCODONE/Acetaminophen 10/325 Tablet PO PRN ×4 (03:29→20:03)
--- NOTE | 2017-11-07 05:55 | XR ---
EXAM DATE: 11/07/2017 5:30 AM EDT AGE/SEX: 72 years / Female INDICATIONS: Pleural effusion. CLINICAL DATA: This is the patient's subsequent encounter. Patient reports that signs and symptoms h ave been present for 4 - 6 days and indicates a pain score of 5/10. MEDICAL/SURGICAL HISTORY: Chronic obstructive pulmonary disease. None. COMPARISON: [facility] – [place], [place]ST 1V SINGLE AP, 11/03/2017. . FINDINGS: The heart size is upper limits of normal. There is increased density at the left base. The remaining aspect of the lungs appear clear. There is silhouetting the left hemidiaphragm. There is a loop recor vamshi seen in the left chest. There is chronic appearing fracture deformity at the lateral right clavic le. CONCLUSION: Increased density at the left base representing some degree of atelectasis, consolidation, and/or eff usion. Electronically signed by: James Farmer MD 11/07/2017 5:53 AM EDT
[2017-11-07] MEDS: Fenofibrate 145 MG Tablet PO SCH (08:02)
[2017-11-07] MEDS: Gabapentin 300 MG Capsule PO SCH ×3 (08:03→17:07)
[2017-11-07] MEDS: Aspirin 325 MG Tablet PO SCH (08:03)
[2017-11-07] MEDS: Lisinopril 20 MG Tablet PO SCH (08:03)
[2017-11-07] MEDS: predniSONE 10 MG Tablet PO SCH (08:03)
[2017-11-07] MEDS: amLODIPine 10 MG Tablet PO SCH (08:04)
--- NOTE | 2017-11-07 10:37 | P.PNCA ---
Subjective Interval history: Feeling better day by day. Still coughing Physical Exam Vital signs: Vital Signs 11/06/17 12:00 11/06/17 14:00 11/06/17 16:00 Temperature 98.4 F 98.5 F Pulse Rate 68 74 71 Respiratory Rate 14 Blood Pressure 160/88 H 137/64 Pulse Oximetry 97 98 11/06/17 18:00 11/06/17 20:00 11/06/17 20:13 Temperature 97.7 F Pulse Rate 70 68 Respiratory Rate 13 Blood Pressure 141/67 H Pulse Oximetry 97 99 11/06/17 22:00 11/07/17 00:00 11/07/17 01:00 Temperature Pulse Rate 70 72 61 Respiratory Rate 16 Blood Pressure 167/77 H Pulse Oximetry 97 11/07/17 01:48 11/07/17 02:00 11/07/17 03:00 Temperature 97.8 F Pulse Rate 75 51 L 56 L Respiratory Rate 20 Blood Pressure 146/71 H Pulse Oximetry 97 11/07/17 04:00 11/07/17 04:08 11/07/17 05:00 Temperature 97.9 F Pulse Rate 62 65 Respiratory Rate 20 20 Blood Pressure 145/76 H Pulse Oximetry 97 11/07/17 06:00 11/07/17 07:00 11/07/17 08:00 Temperature 97.8 F Pulse Rate 61 73 Respiratory Rate 20 Blood Pressure 173/112 H Pulse Oximetry 93 L 92 L 11/07/17 08:40 11/07/17 08:47 11/07/17 09:08 Temperature Pulse Rate Respiratory Rate 18 Blood Pressure 135/74 Pulse Oximetry 96 Intake & Output 11/06/17 11/07/17 11/07/17 18:59 06:59 18:59 Intake Total 720 / 720 200 / 200 Output Total 200 / 200 Balance 720 / 720 0 / 0 Weight 104.4 kg Intake: IV 520 / 520 100 / 100 Maxipime Inj 2,000 MG In NS Inj 100 / 100 100 ML @ 200 mls/hr IV.SIG Q24H [facility] Rx#:[id number] Vancomycin Inj 2,000 MG In NS 520 / 520 Inj 500 ML @ 250 mls/hr IV.SIG Q24H [facility] Rx#:[id number] Oral 200 / 200 100 / 100 Output: Urine 200 / 200 Other: # Voids 7 Date of Last Bowel Movement 11/01/17 11/06/17 11/06/17 # Bowel Movements 0 Alert. Bp's up and down Chest + rhonchi CV S1S2 RRR, no rub No edema. Not enough fluid to tap by CT - echo pending. - Urinary Catheter Management Indwelling Urethral Catheter Cath placed during this visit: yes Reason for continuing: Hourly intake/output Insertion date: 11/01/17 Insertion time: 06:45 Assessment and Plan - Assessment (1) Pericardial effusion Code(s): I31.3 - Pericardial effusion (noninflammatory) Status: Acute (2) COPD with acute exacerbation Code(s): J44.1 - Chronic obstructive pulmonary disease with (acute) exacerbation Status: Acute (3) Respiratory failure Code(s): J96.90 - Respiratory failure, unspecified, unspecified whether with hypoxia or hypercapnia Status: Acute - Plan 1) Pericardial effusion Reviewed repeat echo Moderate to large pericardial effusion, no change from previous Appears to be circumferential, but portion is posterior Still with intraventricular dependence, but no RV collapse IVC now dilated Clinically no tamponade at this time 2) Most likely will need to have it drained if possible, as not decreasing in size and having some components of pre-tamponade physiology on echo Con't to hold Plavix Will reevaluate over next 24-48 hours Last Plavix dose was believed to be on 11/01 11/06 Dr. Chery asked me to F/U Being treated for pneumonia. Pericardiocentesis planned today. 11/07 Not enough fluid to tap by CT. Echo pending. I will see prn
[2017-11-07] MEDS: Vancomycin Inj 2,000 MG in Sodium Chlor 0.9% Inj 500 ML IV.SIG SCH (11:58)
[2017-11-07] MEDS: levETIRAcetam 500 MG Tablet PO SCH ×2 (11:58→23:29)
--- NOTE | 2017-11-07 17:35 | P.PN ---
Subjective Interval history: Alert and stable on o2 2 L. No pericardial Tap done so far. 2 D Echo to be repeated . Physical Exam Vital signs: Vital Signs 11/06/17 18:00 11/06/17 20:00 11/06/17 20:13 Temperature 97.7 F Pulse Rate 70 68 Respiratory Rate 13 Blood Pressure 141/67 H Pulse Oximetry 97 99 11/06/17 22:00 11/07/17 00:00 11/07/17 01:00 Temperature Pulse Rate 70 72 61 Respiratory Rate 16 Blood Pressure 167/77 H Pulse Oximetry 97 11/07/17 01:48 11/07/17 02:00 11/07/17 03:00 Temperature 97.8 F Pulse Rate 75 51 L 56 L Respiratory Rate 20 Blood Pressure 146/71 H Pulse Oximetry 97 11/07/17 04:00 11/07/17 04:08 11/07/17 05:00 Temperature 97.9 F Pulse Rate 62 65 Respiratory Rate 20 20 Blood Pressure 145/76 H Pulse Oximetry 97 11/07/17 06:00 11/07/17 07:00 11/07/17 08:00 Temperature 97.8 F Pulse Rate 61 68 74 Respiratory Rate 20 Blood Pressure 173/112 H Pulse Oximetry 93 L 92 L 11/07/17 08:40 11/07/17 08:47 11/07/17 09:00 Temperature Pulse Rate 78 Respiratory Rate 18 Blood Pressure Pulse Oximetry 96 11/07/17 09:08 11/07/17 10:00 11/07/17 11:00 Temperature 97.6 F Pulse Rate 72 79 Respiratory Rate 18 Blood Pressure 135/74 142/80 H Pulse Oximetry 94 L 11/07/17 11:11 11/07/17 15:00 11/07/17 16:00 Temperature 97.9 F Pulse Rate 67 72 Respiratory Rate 16 18 18 Blood Pressure 157/85 H Pulse Oximetry 92 L Intake & Output 11/06/17 11/07/17 11/07/17 18:59 06:59 18:59 Intake Total 720 / 720 200 / 200 520 / 520 Output Total 200 / 200 Balance 720 / 720 0 / 0 520 / 520 Weight 104.4 kg Intake: IV 520 / 520 100 / 100 520 / 520 Maxipime Inj 2,000 MG In NS Inj 100 / 100 100 ML @ 200 mls/hr IV.SIG Q24H [facility] Rx#:[id number] Vancomycin Inj 2,000 MG In NS 520 / 520 520 / 520 Inj 500 ML @ 250 mls/hr IV.SIG Q24H INDIGO Rx#:[id number] Oral 200 / 200 100 / 100 Output: Urine 200 / 200 Other: # Voids 7 Date of Last Bowel Movement 11/01/17 11/06/17 11/06/17 # Bowel Movements 0 Narrative: GENERAL: NAD, AAOx3, obese W/F SKIN: Warm and dry. HEAD: Atraumatic. Normocephalic. Throat clear. NECK: Trachea midline.Mild JVD. CARDIOVASCULAR: Regular rate and rhythm. RESPIRATORY: No accessory muscle use. Bilateral mild wheezing. MUSCULOSKELETAL: 1+ edema. NEUROLOGICAL: Awake and alert. Normal speech.No focal deficits. PSYCHIATRIC: Appropriate mood and affect - Urinary Catheter Management Indwelling Urethral Catheter Cath placed during this visit: yes Reason for continuing: Hourly intake/output Insertion date: 11/01/17 Insertion time: 06:45 Results - Labs CBC & Chem 7: 11/02/17 04:50 11/06/17 04:37 - Imaging Impressions Chest X-Ray 11/07/17 00:00 CONCLUSION: Increased density at the left base representing some degree of atelectasis, consolidation, and/or effusion. Assessment and Plan - Assessment (1) COPD with acute exacerbation Code(s): J44.1 - Chronic obstructive pulmonary disease with (acute) exacerbation Status: Acute (2) Pneumonia Code(s): J18.9 - Pneumonia, unspecified organism Status: Acute (3) Respiratory failure Code(s): J96.90 - Respiratory failure, unspecified, unspecified whether with hypoxia or hypercapnia Status: Acute (4) CVA (cerebral vascular accident) Code(s): I63.9 - Cerebral infarction, unspecified Status: Acute (5) HTN (hypertension) Code(s): I10 - Essential (primary) hypertension Status: Acute (6) Pericardial effusion Code(s): I31.3 - Pericardial effusion (noninflammatory) Status: Acute - Plan 1. IS at Bedside q3h 2. Cont Prednisone 10 mg daily 3. Nebs tid , duoneb. 4. O2 at 2 L at HS and PRN. 5. Continue Ropinirole daily 6. Up with help 7. Symbicort 160/4.5 mcg , 2 puffs BID
--- NOTE | 2017-11-07 17:50 | P.PNIM ---
Subjective Interval history: Patient seen earlier today. She reports she is feeling better. Not enough fluid for pericardiocentesis. Physical Exam Vital signs: Vital Signs 11/06/17 18:00 11/06/17 20:00 11/06/17 20:13 Temperature 97.7 F Pulse Rate 70 68 Respiratory Rate 13 Blood Pressure 141/67 H Pulse Oximetry 97 99 11/06/17 22:00 11/07/17 00:00 11/07/17 01:00 Temperature Pulse Rate 70 72 61 Respiratory Rate 16 Blood Pressure 167/77 H Pulse Oximetry 97 11/07/17 01:48 11/07/17 02:00 11/07/17 03:00 Temperature 97.8 F Pulse Rate 75 51 L 56 L Respiratory Rate 20 Blood Pressure 146/71 H Pulse Oximetry 97 11/07/17 04:00 11/07/17 04:08 11/07/17 05:00 Temperature 97.9 F Pulse Rate 62 65 Respiratory Rate 20 20 Blood Pressure 145/76 H Pulse Oximetry 97 11/07/17 06:00 11/07/17 07:00 11/07/17 08:00 Temperature 97.8 F Pulse Rate 61 68 74 Respiratory Rate 20 Blood Pressure 173/112 H Pulse Oximetry 93 L 92 L 11/07/17 08:40 11/07/17 08:47 11/07/17 09:00 Temperature Pulse Rate 78 Respiratory Rate 18 Blood Pressure Pulse Oximetry 96 11/07/17 09:08 11/07/17 10:00 11/07/17 11:00 Temperature 97.6 F Pulse Rate 72 79 Respiratory Rate 18 Blood Pressure 135/74 142/80 H Pulse Oximetry 94 L 11/07/17 11:11 11/07/17 15:00 11/07/17 16:00 Temperature 97.9 F Pulse Rate 67 72 Respiratory Rate 16 18 18 Blood Pressure 157/85 H Pulse Oximetry 92 L Intake & Output 11/06/17 11/07/17 11/07/17 18:59 06:59 18:59 Intake Total 720 / 720 200 / 200 520 / 520 Output Total 200 / 200 Balance 720 / 720 0 / 0 520 / 520 Weight 104.4 kg Intake: IV 520 / 520 100 / 100 520 / 520 Maxipime Inj 2,000 MG In NS Inj 100 / 100 100 ML @ 200 mls/hr IV.SIG Q24H [facility] Rx#:[id number] Vancomycin Inj 2,000 MG In NS 520 / 520 520 / 520 Inj 500 ML @ 250 mls/hr IV.SIG Q24H [facility] Rx#:[id number] Oral 200 / 200 100 / 100 Output: Urine 200 / 200 Other: # Voids 7 Date of Last Bowel Movement 11/01/17 11/06/17 11/06/17 # Bowel Movements 0 Narrative: GENERAL: NAD, AAOx3, obese W/F SKIN: Warm and dry. HEAD: Atraumatic. Normocephalic. Throat clear. NECK: Trachea midline.Mild JVD. CARDIOVASCULAR: Regular rate and rhythm. RESPIRATORY: No accessory muscle use. Bilateral mild wheezing. No rhonchi. MUSCULOSKELETAL: 1+ edema. NEUROLOGICAL: Awake and alert. Normal speech. No focal deficits. - Urinary Catheter Management Indwelling Urethral Catheter Cath placed during this visit: yes Reason for continuing: Hourly intake/output Insertion date: 11/01/17 Insertion time: 06:45 Results - Labs CBC & Chem 7: 11/02/17 04:50 11/06/17 04:37 - Imaging Impressions Chest X-Ray 11/07/17 00:00 CONCLUSION: Increased density at the left base representing some degree of atelectasis, consolidation, and/or effusion. Assessment and Plan - Assessment (1) Respiratory failure Code(s): J96.90 - Respiratory failure, unspecified, unspecified whether with hypoxia or hypercapnia Status: Acute (2) CVA (cerebral vascular accident) Code(s): I63.9 - Cerebral infarction, unspecified Status: Acute (3) HTN (hypertension) Code(s): I10 - Essential (primary) hypertension Status: Acute (4) COPD with acute exacerbation Code(s): J44.1 - Chronic obstructive pulmonary disease with (acute) exacerbation Status: Acute (5) Pneumonia Code(s): J18.9 - Pneumonia, unspecified organism Status: Acute - Plan 72-year-old female with: acute on chronic hypoxemic respiratory failure- improving. Patient on home O2 Continue treating pneumonia and COPD exacerbation with antibiotics, neb treatments and IV steroids- BiPAP as needed V/Q scan with low probability for PE. pulmonary consult appreciated. Pneumonia Worrisome for healthcare associated as patient has just been discharged from [facility] rehab within the week. Patient initially treated with cefepime and vancomycin. She is improving. Transition to oral Levaquin. pericardial effusion -Not enough fluid to drain. -Cardiology following. chest pain-resolved troponin negative.cardiology following. CVA (cerebral vascular accident) Patient on Plavix and aspirin Continue with current management plan HTN (hypertension) on amlodipine and hydrochlorothiazide and lisinopril No new events Discharge Planning: Possible discharge in the next 24-48 hours based on improvement.
[2017-11-08] MEDS: oxyCODONE/Acetaminophen 10/325 Tablet PO PRN ×4 (03:08→23:53)
[2017-11-08] MEDS: amLODIPine 10 MG Tablet PO SCH (08:32)
[2017-11-08] MEDS: Aspirin 325 MG Tablet PO SCH (08:39)
[2017-11-08] MEDS: levoFLOXacin 750 MG Tablet PO SCH (08:39)
[2017-11-08] MEDS: Lisinopril 20 MG Tablet PO SCH (08:39)
[2017-11-08] MEDS: Gabapentin 300 MG Capsule PO SCH ×3 (08:40→17:20)
[2017-11-08] MEDS: predniSONE 10 MG Tablet PO SCH (08:40)
[2017-11-08] MEDS: Fenofibrate 145 MG Tablet PO SCH (08:44)
[2017-11-08 11:14] LABS: Bilirubin,Urine Negative (Negative); Clarity,Urine Clear (Clear); Color,Urine Yellow (Yellw/Straw); Glucose,Urine (UA) Negative (Negative); Leukocyte Esterase,Urine Negative (Negative); Nitrite,Urine Negative (Negative); Squamous Epithelial Cell,Urine 1 /hpf (0-5)
[2017-11-08] MEDS: levETIRAcetam 500 MG Tablet PO SCH ×2 (11:25→23:37)
[2017-11-08] MEDS: ALPRAZolam 0.5 MG Tablet PO PRN (11:25)
[2017-11-08] MEDS ORDERED: Pharmacy Ordered Lab Info OTHER ONE (11:45)
--- NOTE | 2017-11-08 12:45 | ECHRPT ---
Indication: SOB CONCLUSIONS The left ventricular systolic function is hyperdynamic with an estimated ejection fraction in the ra nge of 65- 70%. Normal left ventricular size. Wall thickness is measured at the upper limits of normal. No regional wall motion abnormalities are present. The right ventricular size is normal. The right ventricular systoilc function is normal. The right atrium is not well visualized. The aortic root and proximal ascending aorta are not well visualized. The aortic valve is not well visualized. Trace aortic valve regurgitation. No aortic valve stenosis. The inferior vena cava was not well visualized. There is a moderate pericardial effusion present. The pericardial effusion is circumfrential but most prominent posterior and laterally. No associated right atrial or right ventricular chamber collapse was noted. Abnormal respirophasic change in transvalvular flow velocities across the tricuspid valve observed. The possibility of hemodynamic compromise cannot be excluded on the basis of these images alone. Clinical correlation is recommended.. BP: / HR: Rhythm: Sinus MEASUREMENTS (Male / Female) Normal Values Technical Quality:Poor 2D ECHO LV Diastolic Diameter PLAX 5.3 cm 4.2 - 5.9 / 3.9 - 5.3 cm LV Systolic Diameter PLAX 3.0 cm IVS Diastolic Thickness 1.2 cm 0.6 - 1.0 / 0.6 - 0.9 cm LVPW Diastolic Thickness 1.2 cm 0.6 - 1.0 / 0.6 - 0.9 cm LV Relative Wall Thickness 0.4 LVOT Diameter 2.0 cm FINDINGS LEFT VENTRICLE The left ventricular systolic function is hyperdynamic with an estimated ejection fraction in the ra nge of 65- 70%. Normal left ventricular size. Wall thickness is measured at the upper limits of normal. No regional wall motion abnormalities are present. RIGHT VENTRICLE The right ventricular size is normal. The right ventricular systoilc function is normal. LEFT ATRIUM The left atrial size is normal. RIGHT ATRIUM The right atrium is not well visualized. The right atrial size is normal. ATRIAL SEPTUM Normal atrial septal thickness without atrial level shunting by limited color doppler interrogation. AORTA The aortic root and proximal ascending aorta are not well visualized. The aortic root and proximal ascending aorta are normal in size on limited imaging. MITRAL VALVE Structurally normal mitral valve. No mitral valve stenosis or regurgitation. AORTIC VALVE The aortic valve is not well visualized. Trace aortic valve regurgitation. No aortic valve stenosis. TRICUSPID VALVE Structurally normal tricuspid valve. No tricuspid valve stenosis or regurgitation. PULMONARY VALVE The pulmonary valve is not well visualized. VESSELS The inferior vena cava was not well visualized. PERICARDIUM There is a moderate pericardial effusion present. The pericardial effusion is circumfrential but most prominent posterior and laterally. No associated right atrial or right ventricular chamber collapse was noted. Abnormal respirophasic change in transvalvular flow velocities across the tricuspid valve observed. The possibility of hemodynamic compromise cannot be excluded on the basis of these images alone. Clinical correlation is recommended.. Bird Bee MD, FACC (Electronically Signed) Final Date:08 November 2017 12:44
--- NOTE | 2017-11-08 13:29 | P.PNIM ---
Subjective Interval history: Patient reports feeling a little short of breath and anxious today. She reports burning with urination. Physical Exam Vital signs: Vital Signs 11/07/17 14:00 11/07/17 15:00 11/07/17 16:00 Temperature 97.9 F Pulse Rate 70 65 64 Respiratory Rate 18 18 Blood Pressure 157/85 H Pulse Oximetry 92 L 11/07/17 17:00 11/07/17 18:00 11/07/17 19:00 Temperature 97.6 F Pulse Rate 72 70 74 Respiratory Rate 20 Blood Pressure 149/87 H Pulse Oximetry 96 11/07/17 19:02 11/07/17 20:00 11/07/17 21:00 Temperature Pulse Rate 69 80 68 Respiratory Rate 18 Blood Pressure Pulse Oximetry 95 96 11/07/17 22:00 11/07/17 23:00 11/08/17 00:00 Temperature 97.5 F L Pulse Rate 66 68 66 Respiratory Rate 20 Blood Pressure 141/74 H Pulse Oximetry 96 11/08/17 01:00 11/08/17 02:00 11/08/17 03:00 Temperature 97.9 F Pulse Rate 64 64 69 Respiratory Rate 22 Blood Pressure 144/73 H Pulse Oximetry 93 L 11/08/17 04:00 11/08/17 04:16 11/08/17 05:00 Temperature Pulse Rate 57 L 66 Respiratory Rate 20 Blood Pressure Pulse Oximetry 11/08/17 06:00 11/08/17 08:00 11/08/17 08:50 Temperature 98.0 F Pulse Rate 59 L 69 78 Respiratory Rate 20 18 Blood Pressure 157/89 H Pulse Oximetry 97 94 L Intake & Output 11/07/17 11/08/17 11/08/17 18:59 06:59 18:59 Intake Total 2500 / 2500 240 / 240 Output Total 1000 / 1000 Balance 2500 / 2500 -760 / -760 Weight 105.3 kg Intake: IV 520 / 520 Vancomycin Inj 2,000 MG In NS 520 / 520 Inj 500 ML @ 250 mls/hr IV.SIG Q24H [facility] Rx#:[id number] Oral 1979 240 / 240 Output: Urine 1000 / 1000 Other: # Voids 8 1 Date of Last Bowel Movement 11/06/17 11/06/17 Narrative: GENERAL: No acute distress. Obese female SKIN: Warm and dry. HEAD: Atraumatic. Normocephalic. Throat clear. NECK: Trachea midline.Mild JVD. CARDIOVASCULAR: Regular rate and rhythm. No murmur or Rub. RESPIRATORY: No accessory muscle use. Bilateral mild wheezing. No crackles MUSCULOSKELETAL: 1+ edema. NEUROLOGICAL: Awake and alert. Normal speech. No focal deficits. - Urinary Catheter Management Indwelling Urethral Catheter Cath placed during this visit: yes Reason for continuing: Hourly intake/output Insertion date: 11/01/17 Insertion time: 06:45 Results - Labs CBC & Chem 7: 11/02/17 04:50 11/08/17 05:02 Laboratory Results - last 24 hr 11/08/17 11/08/17 05:02 10:06 Creatinine 0.85 Estimated GFR 66 L Urine Color Yellow Urine Clarity Clear Urine pH 6.0 Ur Specific [place] 1.010 Urine Protein Negative Urine Glucose (UA) Negative Urine Ketones Negative Urine Occult Blood Negative Urine Nitrate Negative Urine Bilirubin Negative Urine Urobilinogen Less than 2 Ur Leukocyte Esterase Negative Urine RBC Less than 1 Urine WBC 1 Ur Squamous Epith Cells 1 Micro UA Comment Culture not ind Urine Culture Comments Culture not ind Assessment and Plan - Assessment (1) Respiratory failure Code(s): J96.90 - Respiratory failure, unspecified, unspecified whether with hypoxia or hypercapnia Status: Acute (2) CVA (cerebral vascular accident) Code(s): I63.9 - Cerebral infarction, unspecified Status: Acute (3) HTN (hypertension) Code(s): I10 - Essential (primary) hypertension Status: Acute (4) COPD with acute exacerbation Code(s): J44.1 - Chronic obstructive pulmonary disease with (acute) exacerbation Status: Acute (5) Pneumonia Code(s): J18.9 - Pneumonia, unspecified organism Status: Acute - Plan 72-year-old female with: acute on chronic hypoxemic respiratory failure- improving. Pericardial effusion may be contributing. Patient on home O2 Continue treating pneumonia and COPD exacerbation with antibiotics, neb treatments and IV steroids- BiPAP as needed V/Q scan with low probability for PE. pulmonary consult appreciated. Pneumonia Worrisome for healthcare associated as patient has just been discharged from [facility] rehab within the week. Patient initially treated with cefepime and vancomycin. Transitioned to oral Levaquin. pericardial effusion -Repeat echo does show persistent fluid. Previous attempt at drainage did not show enough fluid. -Cardiology following. Plan deferred to cardiology chest pain-resolved Troponin negative. Cardiology following. CVA (cerebral vascular accident) Patient on Plavix and aspirin Continue with current management plan HTN (hypertension) on amlodipine, hydrochlorothiazide and lisinopril No new events Discharge Planning: Not yet stable for discharge.
--- NOTE | 2017-11-08 15:32 | P.PN ---
Subjective Interval history: She is feeling OK. On O2 at HS. No chest pain. Will have pericardial drain done Physical Exam Vital signs: Vital Signs 11/07/17 16:00 11/07/17 17:00 11/07/17 18:00 Temperature Pulse Rate 64 72 70 Respiratory Rate 18 Blood Pressure Pulse Oximetry 11/07/17 19:00 11/07/17 19:02 11/07/17 20:00 Temperature 97.6 F Pulse Rate 74 69 80 Respiratory Rate 20 18 Blood Pressure 149/87 H Pulse Oximetry 96 95 96 11/07/17 21:00 11/07/17 22:00 11/07/17 23:00 Temperature 97.5 F L Pulse Rate 68 66 68 Respiratory Rate 20 Blood Pressure 141/74 H Pulse Oximetry 96 11/08/17 00:00 11/08/17 01:00 11/08/17 02:00 Temperature Pulse Rate 66 64 64 Respiratory Rate Blood Pressure Pulse Oximetry 11/08/17 03:00 11/08/17 04:00 11/08/17 04:16 Temperature 97.9 F Pulse Rate 69 57 L Respiratory Rate 22 20 Blood Pressure 144/73 H Pulse Oximetry 93 L 11/08/17 05:00 11/08/17 06:00 11/08/17 08:00 Temperature 98.0 F Pulse Rate 66 59 L 69 Respiratory Rate 20 Blood Pressure 157/89 H Pulse Oximetry 97 11/08/17 08:50 11/08/17 11:00 11/08/17 14:33 Temperature 97.8 F Pulse Rate 78 76 80 Respiratory Rate 18 18 18 Blood Pressure 126/68 Pulse Oximetry 94 L 93 L Intake & Output 11/07/17 11/08/17 11/08/17 18:59 06:59 18:59 Intake Total 2500 / 2500 240 / 240 Output Total 1000 / 1000 Balance 2500 / 2500 -760 / -760 Weight 105.3 kg Intake: IV 520 / 520 Vancomycin Inj 2,000 MG In NS 520 / 520 Inj 500 ML @ 250 mls/hr IV.SIG Q24H [facility] Rx#:[id number] Oral 1979 240 / 240 Output: Urine 1000 / 1000 Other: # Voids 8 1 Date of Last Bowel Movement 11/06/17 11/06/17 Narrative: GENERAL: NAD, AAOx3, obese W/F SKIN: Warm and dry. HEAD: Atraumatic. Normocephalic. Throat clear. NECK: Trachea midline.Mild JVD. CARDIOVASCULAR: Regular rate and rhythm. No murmur or Rub. RESPIRATORY: No accessory muscle use. Bilateral mild wheezing. No crackles MUSCULOSKELETAL: 1+ edema. NEUROLOGICAL: Awake and alert. Normal speech. No focal deficits. - Urinary Catheter Management Indwelling Urethral Catheter Cath placed during this visit: yes Reason for continuing: Hourly intake/output Insertion date: 11/01/17 Insertion time: 06:45 Results - Labs CBC & Chem 7: 11/02/17 04:50 11/08/17 05:02 Laboratory Results - last 24 hr 11/08/17 11/08/17 05:02 10:06 Creatinine 0.85 Estimated GFR 66 L Urine Color Yellow Urine Clarity Clear Urine pH 6.0 Ur Specific [place] 1.010 Urine Protein Negative Urine Glucose (UA) Negative Urine Ketones Negative Urine Occult Blood Negative Urine Nitrate Negative Urine Bilirubin Negative Urine Urobilinogen Less than 2 Ur Leukocyte Esterase Negative Urine RBC Less than 1 Urine WBC 1 Ur Squamous Epith Cells 1 Micro UA Comment Culture not ind Urine Culture Comments Culture not ind Assessment and Plan - Assessment (1) COPD with acute exacerbation Code(s): J44.1 - Chronic obstructive pulmonary disease with (acute) exacerbation Status: Acute (2) Pneumonia Code(s): J18.9 - Pneumonia, unspecified organism Status: Acute (3) Respiratory failure Code(s): J96.90 - Respiratory failure, unspecified, unspecified whether with hypoxia or hypercapnia Status: Acute (4) CVA (cerebral vascular accident) Code(s): I63.9 - Cerebral infarction, unspecified Status: Acute (5) HTN (hypertension) Code(s): I10 - Essential (primary) hypertension Status: Acute (6) Pericardial effusion Code(s): I31.3 - Pericardial effusion (noninflammatory) Status: Acute - Plan 1. IS at Bedside q3h 2. Prednisone 10 mg daily 3. Nebs tid , duoneb. 4. O2 at 2 L at HS and PRN. 5. Continue Ropinirole daily 6. Labs in am. 7. Symbicort 160/4.5 mcg , 2 puffs BID
[2017-11-08 21:21] LABS: Baso % (Auto) 0.1 % (0.0-2.0); Eos # (Auto) 0.2 th/mm3 (0.0-0.4); Eos % (Auto) 1.9 % (0.0-4.0); Hemoglobin 13.3 gm/dL (11.6-15.3); Lymph # (Auto) 1.1 th/mm3 (1.0-4.8); Lymph % (Auto) 8.6 % (9.0-44.0); Mean Corpuscular HGB Conc 32.5 % (32.0-36.0); Mean Corpuscular Hemoglobin 28.5 pg (27.0-34.0); Mean Corpuscular Volume 87.9 fL (80.0-100.0); Mean Platelet Volume 8.5 fL (7.0-11.0); Mono # (Auto) 0.7 th/mm3 (0.0-0.9); Mono % (Auto) 5.4 % (0.0-8.0); Neut # (Auto) 10.9 th/mm3 (1.8-7.7); Platelet Count 278 th/mm3 (150-450); Red Blood Count 4.67 mil/mm3 (4.00-5.30); Red Cell Distribution Width 14.1 % (11.6-17.2)
[2017-11-09] MEDS: oxyCODONE/Acetaminophen 10/325 Tablet PO PRN ×4 (05:02→22:09)
[2017-11-09] MEDS: Lisinopril 20 MG Tablet PO SCH (09:07)
[2017-11-09] MEDS: Gabapentin 300 MG Capsule PO SCH ×3 (09:08→17:45)
[2017-11-09] MEDS: Fenofibrate 145 MG Tablet PO SCH (09:08)
[2017-11-09] MEDS: levoFLOXacin 750 MG Tablet PO SCH (09:08)
[2017-11-09] MEDS: Aspirin 325 MG Tablet PO SCH (09:08)
[2017-11-09] MEDS: predniSONE 10 MG Tablet PO SCH (09:08)
[2017-11-09] MEDS: amLODIPine 10 MG Tablet PO SCH (09:08)
[2017-11-09] MEDS: levETIRAcetam 500 MG Tablet PO SCH ×2 (12:31→22:09)
--- NOTE | 2017-11-09 13:25 | P.PNIM ---
Subjective Interval history: Patient reports shortness of breath is improved today. No chest pain. Physical Exam Vital signs: Vital Signs 11/08/17 14:00 11/08/17 14:33 11/08/17 15:00 Temperature 98.7 F Pulse Rate 90 80 87 Respiratory Rate 18 18 Blood Pressure 121/83 Pulse Oximetry 93 L 11/08/17 16:00 11/08/17 17:00 11/08/17 18:00 Temperature Pulse Rate 92 H 80 88 Respiratory Rate Blood Pressure Pulse Oximetry 11/08/17 18:53 11/08/17 19:00 11/08/17 20:00 Temperature 97.1 F L Pulse Rate 84 83 76 Respiratory Rate 18 20 Blood Pressure 119/73 Pulse Oximetry 92 L 91 L 91 L 11/08/17 21:00 11/08/17 22:00 11/08/17 23:00 Temperature 97.8 F Pulse Rate 78 76 65 Respiratory Rate 20 Blood Pressure 122/71 Pulse Oximetry 98 11/09/17 00:00 11/09/17 01:00 11/09/17 02:00 Temperature Pulse Rate 84 74 68 Respiratory Rate Blood Pressure Pulse Oximetry 11/09/17 02:29 11/09/17 03:00 11/09/17 04:00 Temperature 97.9 F Pulse Rate 73 66 Respiratory Rate 20 20 Blood Pressure 123/71 Pulse Oximetry 92 L 11/09/17 05:00 11/09/17 05:50 11/09/17 06:00 Temperature Pulse Rate 72 70 Respiratory Rate 20 Blood Pressure Pulse Oximetry 11/09/17 07:00 11/09/17 07:37 11/09/17 08:00 Temperature 98.4 F Pulse Rate 76 66 86 Respiratory Rate 22 16 Blood Pressure 156/72 H Pulse Oximetry 92 L 90 L 92 L 11/09/17 09:00 11/09/17 10:00 11/09/17 11:00 Temperature 98.2 F Pulse Rate 100 H 99 H 82 Respiratory Rate 18 Blood Pressure 124/78 Pulse Oximetry 92 L 11/09/17 12:00 11/09/17 13:00 Temperature Pulse Rate 82 87 Respiratory Rate Blood Pressure Pulse Oximetry Intake & Output 11/08/17 11/09/17 11/09/17 18:59 06:59 18:59 Intake Total 3360 / 3360 240 / 240 Output Total 2100 / 2100 400 / 400 Balance 1260 / 1260 -160 / -160 Weight 105.1 kg Intake: Oral 3360 / 3360 240 / 240 Output: Urine 2099 400 / 400 Other: # Voids 1 Date of Last Bowel Movement 11/08/17 11/08/17 # Bowel Movements 1 Narrative: GENERAL: No acute distress. Obese female SKIN: Warm and dry. HEAD: Atraumatic. Normocephalic. Throat clear. NECK: Trachea midline.Mild JVD. CARDIOVASCULAR: Regular rate and rhythm. No murmur or Rub. RESPIRATORY: No accessory muscle use. Bilateral mild wheezing. No crackles MUSCULOSKELETAL: 1+ edema. NEUROLOGICAL: Awake and alert. Normal speech. No focal deficits. - Urinary Catheter Management Indwelling Urethral Catheter Cath placed during this visit: yes Reason for continuing: Hourly intake/output Insertion date: 11/01/17 Insertion time: 06:45 Results - Labs CBC & Chem 7: 11/08/17 19:50 11/08/17 05:02 Laboratory Results - last 24 hr 11/08/17 19:50 WBC 13.0 H RBC 4.67 Hgb 13.3 Hct 41.0 MCV 87.9 MCH 28.5 MCHC 32.5 RDW 14.1 Plt Count 278 MPV 8.5 Neut % (Auto) 84.0 H Lymph % (Auto) 8.6 L [place] % (Auto) 5.4 Eos % (Auto) 1.9 Baso % (Auto) 0.1 Neut # (Auto) 10.9 H Lymph # (Auto) 1.1 [place] # (Auto) 0.7 Eos # (Auto) 0.2 Baso # (Auto) 0.0 WBC Differential . Differential Comment Auto diff final Assessment and Plan - Assessment (1) Respiratory failure Code(s): J96.90 - Respiratory failure, unspecified, unspecified whether with hypoxia or hypercapnia Status: Acute (2) CVA (cerebral vascular accident) Code(s): I63.9 - Cerebral infarction, unspecified Status: Acute (3) HTN (hypertension) Code(s): I10 - Essential (primary) hypertension Status: Acute (4) COPD with acute exacerbation Code(s): J44.1 - Chronic obstructive pulmonary disease with (acute) exacerbation Status: Acute (5) Pneumonia Code(s): J18.9 - Pneumonia, unspecified organism Status: Acute - Plan 72-year-old female with: acute on chronic hypoxemic respiratory failure- improving. Pericardial effusion may be contributing. Patient on home O2 Continue treating pneumonia and COPD exacerbation with antibiotics, neb treatments and IV steroids- BiPAP as needed V/Q scan with low probability for PE. pulmonary consult appreciated. Per Pulmonology note. Plan for drainage. Will discuss with Pulmonology Pneumonia Worrisome for healthcare associated as patient has just been discharged from [facility] rehab within the week. Patient initially treated with cefepime and vancomycin. Transitioned to oral Levaquin. pericardial effusion -Repeat echo does show persistent fluid. Previous attempt at drainage did not show enough fluid. -Cardiology following. Plan deferred to cardiology chest pain-resolved Troponin negative. Cardiology following. CVA (cerebral vascular accident) Patient on Plavix and aspirin Continue with current management plan HTN (hypertension) on amlodipine, hydrochlorothiazide and lisinopril No new events Discharge Planning: Not yet stable for discharge. Will discuss with Pulmonology. Appreciate input from Cardiology.
--- NOTE | 2017-11-09 18:24 | P.PN ---
Subjective Interval history: Up and breathing better. Off O2 sat 95. No cardiac procedure planned. Physical Exam Vital signs: Vital Signs 11/08/17 18:53 11/08/17 19:00 11/08/17 20:00 Temperature 97.1 F L Pulse Rate 84 83 76 Respiratory Rate 18 20 Blood Pressure 119/73 Pulse Oximetry 92 L 91 L 91 L 11/08/17 21:00 11/08/17 22:00 11/08/17 23:00 Temperature 97.8 F Pulse Rate 78 76 65 Respiratory Rate 20 Blood Pressure 122/71 Pulse Oximetry 98 11/09/17 00:00 11/09/17 01:00 11/09/17 02:00 Temperature Pulse Rate 84 74 68 Respiratory Rate Blood Pressure Pulse Oximetry 11/09/17 02:29 11/09/17 03:00 11/09/17 04:00 Temperature 97.9 F Pulse Rate 73 66 Respiratory Rate 20 20 Blood Pressure 123/71 Pulse Oximetry 92 L 11/09/17 05:00 11/09/17 05:50 11/09/17 06:00 Temperature Pulse Rate 72 70 Respiratory Rate 20 Blood Pressure Pulse Oximetry 11/09/17 07:00 11/09/17 07:37 11/09/17 08:00 Temperature 98.4 F Pulse Rate 76 66 86 Respiratory Rate 22 16 Blood Pressure 156/72 H Pulse Oximetry 92 L 90 L 92 L 11/09/17 09:00 11/09/17 10:00 11/09/17 11:00 Temperature 98.2 F Pulse Rate 100 H 99 H 82 Respiratory Rate 18 Blood Pressure 124/78 Pulse Oximetry 92 L 11/09/17 12:00 11/09/17 13:00 11/09/17 14:00 Temperature Pulse Rate 82 87 78 Respiratory Rate Blood Pressure Pulse Oximetry 11/09/17 14:41 11/09/17 15:00 11/09/17 16:00 Temperature 98.3 F Pulse Rate 79 76 88 Respiratory Rate 16 18 Blood Pressure 114/53 L Pulse Oximetry 95 11/09/17 17:00 11/09/17 18:00 Temperature Pulse Rate 90 87 Respiratory Rate Blood Pressure Pulse Oximetry Intake & Output 11/08/17 11/09/17 11/09/17 18:59 06:59 18:59 Intake Total 3360 / 3360 240 / 240 960 / 960 Output Total 2100 / 2100 400 / 400 850 / 850 Balance 1260 / 1260 -160 / -160 110 / 110 Weight 105.1 kg Intake: Oral 3360 / 3360 240 / 240 960 / 960 Output: Urine 2099 400 / 400 850 / 850 Other: # Voids 1 1 Date of Last Bowel Movement 11/08/17 11/08/17 # Bowel Movements 1 Narrative: GENERAL: No acute distress. Elderly Obese female SKIN: Warm and dry. HEAD: Atraumatic. Normocephalic. Throat clear. NECK: Trachea midline.Mild JVD. CARDIOVASCULAR: Regular rate and rhythm. No murmur or Rub. RESPIRATORY: No accessory muscle use. Bilateral wheezing. No crackles MUSCULOSKELETAL: 1+ edema of feet. NEUROLOGICAL: Awake and alert. Normal speech. No focal deficits. - Urinary Catheter Management Indwelling Urethral Catheter Cath placed during this visit: yes Reason for continuing: Hourly intake/output Insertion date: 11/01/17 Insertion time: 06:45 Results - Labs CBC & Chem 7: 11/08/17 19:50 11/08/17 05:02 Laboratory Results - last 24 hr 11/08/17 19:50 WBC 13.0 H RBC 4.67 Hgb 13.3 Hct 41.0 MCV 87.9 MCH 28.5 MCHC 32.5 RDW 14.1 Plt Count 278 MPV 8.5 Neut % (Auto) 84.0 H Lymph % (Auto) 8.6 L [place] % (Auto) 5.4 Eos % (Auto) 1.9 Baso % (Auto) 0.1 Neut # (Auto) 10.9 H Lymph # (Auto) 1.1 [place] # (Auto) 0.7 Eos # (Auto) 0.2 Baso # (Auto) 0.0 WBC Differential . Differential Comment Auto diff final Assessment and Plan - Assessment (1) COPD with acute exacerbation Code(s): J44.1 - Chronic obstructive pulmonary disease with (acute) exacerbation Status: Acute (2) Pneumonia Code(s): J18.9 - Pneumonia, unspecified organism Status: Acute (3) Respiratory failure Code(s): J96.90 - Respiratory failure, unspecified, unspecified whether with hypoxia or hypercapnia Status: Acute (4) CVA (cerebral vascular accident) Code(s): I63.9 - Cerebral infarction, unspecified Status: Acute (5) HTN (hypertension) Code(s): I10 - Essential (primary) hypertension Status: Acute (6) Pericardial effusion Code(s): I31.3 - Pericardial effusion (noninflammatory) Status: Acute - Plan 1. IS at Bedside q3h 2. Cont Prednisone 10 mg daily 3. Nebs tid , duoneb. 4. O2 at 2 L at HS and PRN. 5. Continue Ropinirole 1 mg daily 6. Cont levaquin 750 mg daily X3 7. Cont Symbicort 160/4.5 mcg , 2 puffs BID
[2017-11-10] MEDS: oxyCODONE/Acetaminophen 10/325 Tablet PO PRN ×3 (03:28→15:27)
[2017-11-10 08:08] VITALS: O2SAT 90
[2017-11-10] MEDS: amLODIPine 10 MG Tablet PO SCH (10:14)
[2017-11-10] MEDS: levoFLOXacin 750 MG Tablet PO SCH (10:14)
[2017-11-10] MEDS: Gabapentin 300 MG Capsule PO SCH ×2 (10:14→14:00)
[2017-11-10] MEDS: Fenofibrate 145 MG Tablet PO SCH (10:14)
[2017-11-10] MEDS: Aspirin 325 MG Tablet PO SCH (10:14)
[2017-11-10] MEDS: predniSONE 10 MG Tablet PO SCH (10:14)
[2017-11-10] MEDS: levETIRAcetam 500 MG Tablet PO SCH (10:15)
[2017-11-10] MEDS: Lisinopril 20 MG Tablet PO SCH (10:15)
--- NOTE | 2017-11-10 11:32 | P.DS ---
Date of admission: 11/01/17 09:17 Primary care physician: Isela Escobar MD Brief History from admission: HPI from the admitting physician Patient is a 72-year-old female with a breath increased work of breathing over the last 3 days. Within the last 7 days she was discharged from rehab and had been at [facility] the week prior to that. She reports being treated for "pneumonia". Currently she is with some tachypnea and accessory muscle use and complains of increased shortness of breath. Nebulizers did improve her symptoms. She has home O2 normally at about 2 L. She says she has been weak and fallen and cannot ambulate at home. She does live with her family. She came to the emergency room and had imaging which do not show any fractures however patient's chest x-ray does show left lower lobe infiltrate and the patient had elevated d-dimer. The in respiratory distress. She does have a DO NOT RESUSCITATE wishes acknowledged by this provider. Patient will be admitted to the ICU for further evaluation and treatment of acute respiratory failure. Update on the day of discharge: Patient reports she is feeling well except for weakness. Looking forward to go to rehab. DS: Diagnosis - Discharge Diagnosis (1) Respiratory failure Status: Acute (2) CVA (cerebral vascular accident) Status: Chronic (3) HTN (hypertension) Status: Acute (4) COPD with acute exacerbation Status: Acute (5) Pneumonia Status: Acute DS: Medications - Discharge Medications Prescriptions: budesonide-formoterol [Symbicort] 2 puff INHALATION Q12H #1 inhaler ipratropium-albuterol 1 amp NEB Q6HR PRN 30 Days ml PRN Reason: Shortness Of Breath Or Wheezing levofloxacin 750 mg PO DAILY #3 tab DS: Summary Hospital Course: 72-year-old female admitted and treated for the following: acute on chronic hypoxemic respiratory failure- improving. Pericardial effusion may be contributing. Patient on home O2 Continue treating pneumonia and COPD exacerbation with antibiotics, neb treatments and IV steroids- BiPAP as needed V/Q scan with low probability for PE. Patient followed by pulmonology. Her respiratory status improved. She is discharged on antibiotics and steroids to complete the course of treatment. Pneumonia Worrisome for healthcare associated as patient has just been discharged from [facility] rehab within the week. Patient initially treated with cefepime and vancomycin. Transitioned to oral Levaquin. Continue on discharge for an additional 3 days. Pericardial effusion -Repeat echo does show persistent fluid. Previous attempt at drainage did not show enough fluid. -Cardiology followed the patient. She remained stable from that standpoint. Continue to treat hypertension and pneumonia. chest pain-resolved Troponin negative. Cardiology followed the patient. CVA (cerebral vascular accident) Patient on Plavix and aspirin Continue with current management plan HTN (hypertension) Continue antihypertensives. - Time Spent with Patient Total time spent providing and/or coordinating discharge services: Greater than 30 minutes - Quality: VTE Deep Vein Thrombosis/Pulmonary Embolism Present on Admission: No Exam Vital signs: Vital Signs 11/09/17 12:00 11/09/17 13:00 11/09/17 14:00 Temperature Pulse Rate 82 87 78 Respiratory Rate Blood Pressure Pulse Oximetry 11/09/17 14:41 11/09/17 15:00 11/09/17 16:00 Temperature 98.3 F Pulse Rate 79 76 88 Respiratory Rate 16 18 Blood Pressure 114/53 L Pulse Oximetry 95 11/09/17 17:00 11/09/17 18:00 11/09/17 19:00 Temperature Pulse Rate 90 87 74 Respiratory Rate Blood Pressure Pulse Oximetry 11/09/17 19:30 11/09/17 20:00 11/09/17 23:00 Temperature 97.6 F Pulse Rate 71 71 Respiratory Rate 16 20 Blood Pressure 121/69 Pulse Oximetry 95 95 11/10/17 03:00 11/10/17 04:36 11/10/17 07:00 Temperature 97.5 F L 98.6 F Pulse Rate 70 70 Respiratory Rate 20 22 18 Blood Pressure 138/84 142/75 H Pulse Oximetry 99 90 L 11/10/17 08:39 Temperature Pulse Rate 75 Respiratory Rate 20 Blood Pressure Pulse Oximetry Intake & Output 11/09/17 11/10/17 11/10/17 18:59 06:59 18:59 Intake Total 960 / 960 720 / 720 Output Total 850 / 850 1200 / 1200 Balance 110 / 110 -480 / -480 Weight 103.2 kg Intake: Oral 960 / 960 720 / 720 Output: Urine 850 / 850 1200 / 1200 Other: # Voids 1 Date of Last Bowel Movement 11/08/17 11/08/17 Narrative: GENERAL: No acute distress. Obese female SKIN: Warm and dry. HEAD: Atraumatic. Normocephalic. Throat clear. NECK: Trachea midline.Mild JVD. CARDIOVASCULAR: Regular rate and rhythm. No murmur or Rub. RESPIRATORY: No accessory muscle use. Bilateral mild wheezing. No crackles MUSCULOSKELETAL: 1+ edema. NEUROLOGICAL: Awake and alert. Normal speech. No focal deficits. Results Procedures completed during hospitalization: None Labs on day of discharge: Labs from last 24 hours 11/10/17 06:35 Creatinine 1.07 H Estimated GFR 50 L - Impressions ITS Impressions Humerus X-Ray 11/01/17 07:35 CONCLUSION: No acute fracture Knee X-Ray 11/01/17 07:35 CONCLUSION: Osteoarthritis without fracture Pulmonary Perfusion Imaging 11/01/17 08:51 CONCLUSION: 1. Low probability for pulmonary embolism. Chest CT 11/06/17 00:00 CONCLUSION: Small volume pericardial effusion. Chest X-Ray 11/07/17 00:00 CONCLUSION: Increased density at the left base representing some degree of atelectasis, consolidation, and/or effusion. Discharge Plan - Discharge Disposition Patient Disposition: 03 Discharge to SNF - Discharge Condition Condition: Stable - Discharge Order Discharge Orders: Discharge Order (Routine); Ordered 11/10/17 Ordered By: Rosina Porter - Physicians Team Primary Care Provider: Isela Escobar Attending Provider: Rosina Porter Other Providers: Levy Chery MD ; [employer] ; [facility] ; James Parsons MD ; [facility] ; [facility]
[2017-11-10 12:22] VITALS: RESP 18
[2017-11-10 15:30] VITALS: BP 134/73; PULSE 80; TEMP 97.7
--- NOTE | 2017-11-10 18:23 | P.PN ---
Subjective Interval history: Feels well. Off O2 . No chest pain or SOB Physical Exam Vital signs: Vital Signs 11/09/17 19:00 11/09/17 19:30 11/09/17 20:00 Temperature Pulse Rate 74 71 Respiratory Rate 16 Blood Pressure Pulse Oximetry 95 11/09/17 23:00 11/10/17 03:00 11/10/17 04:36 Temperature 97.6 F 97.5 F L Pulse Rate 71 70 Respiratory Rate 20 20 22 Blood Pressure 121/69 138/84 Pulse Oximetry 95 99 11/10/17 07:00 11/10/17 08:39 11/10/17 11:00 Temperature 98.6 F 98.3 F Pulse Rate 70 75 81 Respiratory Rate 18 20 18 Blood Pressure 142/75 H 152/78 H Pulse Oximetry 90 L 90 L 11/10/17 12:21 11/10/17 15:00 Temperature 97.7 F Pulse Rate 79 80 Respiratory Rate 18 18 Blood Pressure 134/73 Pulse Oximetry 90 L Intake & Output 11/09/17 11/10/17 11/10/17 18:59 06:59 18:59 Intake Total 960 / 960 720 / 720 640 / 640 Output Total 850 / 850 1200 / 1200 Balance 110 / 110 -480 / -480 640 / 640 Weight 103.2 kg Intake: Oral 960 / 960 720 / 720 640 / 640 Output: Urine 850 / 850 1200 / 1200 Other: # Voids 1 3 Date of Last Bowel Movement 11/08/17 11/10/17 # Bowel Movements 1 Narrative: GENERAL: No acute distress. Elderly Obese female SKIN: Warm and dry. HEAD: Atraumatic. Normocephalic. Throat clear. NECK: Trachea midline.No JVD. CARDIOVASCULAR: Regular rate and rhythm. No murmur or Rub. RESPIRATORY: No accessory muscle use. No wheezing. No crackles MUSCULOSKELETAL: No edema of feet. NEUROLOGICAL: Awake and alert. Normal speech. No focal deficits. - Urinary Catheter Management Indwelling Urethral Catheter Cath placed during this visit: yes Reason for continuing: Hourly intake/output Insertion date: 11/01/17 Insertion time: 06:45 Results - Labs CBC & Chem 7: 11/08/17 19:50 11/10/17 06:35 Laboratory Results - last 24 hr 11/10/17 06:35 Creatinine 1.07 H Estimated GFR 50 L - Procedures None Assessment and Plan - Assessment (1) COPD with acute exacerbation Code(s): J44.1 - Chronic obstructive pulmonary disease with (acute) exacerbation Status: Acute (2) Pneumonia Code(s): J18.9 - Pneumonia, unspecified organism Status: Acute (3) Respiratory failure Code(s): J96.90 - Respiratory failure, unspecified, unspecified whether with hypoxia or hypercapnia Status: Acute (4) CVA (cerebral vascular accident) Code(s): I63.9 - Cerebral infarction, unspecified Status: Chronic (5) HTN (hypertension) Code(s): I10 - Essential (primary) hypertension Status: Acute (6) Pericardial effusion Code(s): I31.3 - Pericardial effusion (noninflammatory) Status: Acute - Plan 1. IS at Bedside q3h 2. Prednisone 10 mg daily X5 3. Nebs tid , duoneb. 4. O2 at 2 L at HS and PRN. 5. Continue Ropinirole 4 mg daily 6. Home with home health. 7. Cont Symbicort 160/4.5 mcg , 2 puffs BID 8. Will see as OP in 3 weeks
== END 2017-11-10 18:42 ==
LOC: PHED 05:51 → PHEDA 09:17 → PH3 10:22 → PHICU 10:36 → N03 17:20 → HCIS 11-07 00:27
PROVIDERS: ADMIT Family Medicine; ATTEND Family Medicine